=== PATIENT | male | born 1955 | race Caucasian/White ===

== ENCOUNTER 2022-11-08 10:33 | Emergency (ER) | payer MEDICARE, MEDICAID, SELFPAY ==
[2022-11-08 10:37] VITALS: BP 116/71; PULSE 70; RESP 119; TEMP 36.6; O2SAT 98; BMI 20.2
--- NOTE | 2022-11-08 11:48 | ED_ITS ---
HPI - General Adult General Chief complaint: Wound/Laceration Stated complaint: Laceration L Ear S/P Injury 11/07/22 Time Seen by Provider: 11/08/22 11:15 Source: other (facility staff) Mode of arrival: wheelchair Limitations: physical limitation History of Present Illness HPI narrative: Patient is a 67-year-old nonverbal male presenting to the emergency department with staff from [facility] who reports that patient sustained a laceration to his left tragus on Monday night while staff was putting patient into bed. Patient had head too close to siderail and when siderail was raised this caused a laceration. Staff denies ongoing bleeding. Staff states patient is not UTD on tetanus. Patient does not appear uncomfortable. MD complaint: Left ear laceration Onset (ago): day(s) Location: head Radiation: non-radiation Relieving factors: none Exacerbating factors: none Associated symptoms: denies other symptoms Treatments prior to arrival: none Related Data Allergies Allergy/AdvReac Type Severity Reaction Status Date / Time No Known Allergies Allergy Verified 11/08/22 10:36 [No Known Allergies*] Review of Systems Review of Systems: As per HPI. Yes all other systems are reviewed and are negative Constitutional: Constitutional: Reports as per HPI [facility] Social History Social History Advance Directives: No Advance Directives Information Provided: Yes Physical Exam ED Vital Signs: Vital Signs - 24 hr 11/08/22 10:37 Temperature 98 F Pulse Rate 70 Respiratory Rate 119 H Blood Pressure 116/71 Pulse Oximetry 98 BMI result Body Mass Index 20.2 Vital signs have been reviewed and appear to be correct. Blood pressure normal. Heart rate tachycardic. Respiratory rate normal. Temperature normal. Oxygen saturation normal. Const General: cooperative, healthy appearing and no acute distress Nutritional Appearance: thin Orientation/consciousness: Other orientation findings (nonverbal at baseline) Limitations: physical limitations HENMT Head: Yes normocephalic and Yes atraumatic Ears: external ears normal, TM's normal bilaterally, EAC's normal and mastoids normal Outer ear/TM images: 1. superficial laceration General nose exam: Normal external nose present Face and sinus: Yes face symmetric Mouth: oropharynx normal and moist mucous membranes Throat: Yes uvula midline Eyes Pupils: Equal, round and reactive pupils present Neck Neck: Yes normal visual inspection and Yes supple Resp Effort & Inspection: normal respiratory effort and able to speak in complete sentences Auscultation: clear to auscultation bilaterally Cardio Rate: regular rate Rhythm: regular rhythm Heart sounds: S1 normal heart sound present and S2 normal heart sound present GI Palpation (GI): Soft to palpation and nontender Auscultation: normoactive bowel sounds General: Yes no CVA tenderness Back/Spine/Pelvis Back: no CVA tenderness Skin General skin exam: elasticity normal and turgor normal Neuro Cranial nerves: Yes Equal, round and reactive pupils present Cognition (Neuro): abnormal cognition Extrem General: Yes no pedal edema and Yes no calf tenderness Psych Mental Status: mental status grossly normal Affect: normal affect Thought process: Normal thought process present Medical Decision Making Medical Decision Making MDM Narrative: Patient is a 67-year-old nonverbal male presenting to the emergency department with staff from [facility] who reports that patient sustained a laceration to his left tragus on Monday night while staff was putting patient into bed. On exam patient is awake, A+Ox3, VS WNL, afebrile, normal neurological exam without focal deficits, 1cm superficial laceration noted to tragus of left ear, no active bleeding. Given reported symptoms and physical exam findings, initial differential includes laceration, abrasion, cellulitis. Area cleansed thoroughly and wound repaired with skin glue. Discussed with [facility] staff that glue will fall off on its own in several days, and to redirect patient if he picks at the glue. Instructed staff to follow-up with patient's primary care provider. Return precautions discussed at bedside. Staff verbalized understanding of and agreement with plan. Differential Diagnosis Differential Diagnoses: The differential diagnosis associated with the presentation includes As per MDM. Independent Historian Clinical information obtained from an independent historian. History obtained from or confirmed by: Other ([facility] staff) External Record Review External record reviewed: Inpatient record, Office record and Outpatient record Discharge Plan Discharge Clinical Impression: Laceration of ear, external, left Patient Disposition: Home, Self-Care Instructions: Laceration (DC), Skin Adhesive Care (ED) Additional Instructions: You have been evaluated in the emergency department today for a laceration to your ear. Your laceration was repaired in the emergency department with skin glue. Please keep the area surrounding the laceration clean and dry. Please assess the wound daily. Keep the area out of direct sunlight for the next 6 months to help prevent scarring. If you develop fever, redness, swelling at the site of your laceration, or thick yellow drainage please come back to the ER for a wound check.
[2022-11-08 11:56] VITALS: BP 109/67; PULSE 67; RESP 16; O2SAT 100
[2022-11-08] MEDS: Diphth,Pertus(ACell),Tet Adult 0.5 ML SYRINGE IM (11:57)
== END 2022-11-08 12:06 | disposition home or self-care (01) ==
PROVIDERS: Emergency Provider Emergency Medicine; PCP Internal Medicine
DX: S01.312A Laceration without foreign body of left ear, initial encounter (principal); W22.8XXA Striking against or struck by other objects, initial encounter; Y93.89 Activity, other specified; Y92.042 Bedroom in boarding-house as the place of occurrence of the external cause; Y99.9 Unspecified external cause status
CPT/HCPCS: 12011; 90471; 90715; 99283; 99284

== ENCOUNTER 2023-01-24 11:16 | Emergency (ER) | payer MEDICARE, MEDICAID, SELFPAY ==
[2023-01-24 11:50] VITALS: BP 124/77; PULSE 56; RESP 18; TEMP 36.4; O2SAT 99; BMI 18.7
--- NOTE | 2023-01-24 11:50 | ED.GENADULT ---
HPI - General Adult General Chief complaint: Urogenital-Male Stated complaint: UTI? Acting off Source: patient and other (senior care staff) Mode of arrival: ambulatory Limitations: physical limitation (patient has cognitive delay) History of Present Illness HPI narrative: Patient is a 67 year old assigned male at with a history of cognitive delay presenting to the emergency department today acting strangely per senior care staff. Patient's senior care staff states that the patient has been acting strangely going to the bathroom more often and they are concerned that he has a UTI. Onset (ago): day(s) Relieving factors: none Exacerbating factors: none Associated symptoms: denies other symptoms Treatments prior to arrival: none Related Data Home Medications Medication Instructions Recorded Confirmed ciclopirox 0.77 % topical cream appl topical 01/25/23 clonazepam 0.5 mg disintegrating mg PO 01/25/23 tablet clorazepate dipotassium 3.75 mg mg PO 01/25/23 tablet divalproex 125 mg capsule,delayed mg PO 01/25/23 release sprinkle finasteride 5 mg tablet 5 mg PO DAILY 01/25/23 lacosamide 200 mg tablet mg PO 01/25/23 lacosamide 50 mg tablet mg PO 01/25/23 lorazepam 0.5 mg tablet 0.5 mg PO DAILY PRN 01/25/23 lorazepam 1 mg tablet mg PO 01/25/23 metoprolol succinate 25 mg mg PO 01/25/23 tablet,extended release 24 hr nystatin 100,000 unit/gram topical topical 01/25/23 powder phenobarbital 60 mg tablet mg PO 01/25/23 tamsulosin 0.4 mg capsule 0.8 mg PO DAILY 01/25/23 Previous Rx's Medication Instructions Recorded sulfamethoxazole 800 1 tab PO BID 10 days #20 tabs 01/25/23 mg-trimethoprim 160 mg tablet (Bactrim DS) Allergies Allergy/AdvReac Type Severity Reaction Status Date / Time No Known Allergies Allergy Verified 01/25/23 13:41 [No Known Allergies*] Review of Systems Review of Systems: Yes Other (patient has cognitive delay, senior care staff answered ROS) Constitutional: Constitutional: Denies fever(s) Eyes: Eyes: Denies eye discharge ENT: Denies change in voice Cardiovascular: Cardiovascular: Denies dyspnea Respiratory: Respiratory: Denies cough and Denies dyspnea Genitourinary: Genitourinary: Reports urinary frequency PMFSH Past Medical History Attestation statement: The following information was validated with the patient. (all information validated with the senior care staff.) Source: old records reviewed, nursing notes reviewed and other (senior care staff provided all history.) Social History Social History Patient Tobacco Use Status: Never used Tobacco Physical Exam ED Vital Signs: BMI result Body Mass Index 18.7 Const General: cooperative, no acute distress, alert and awake Nutritional Appearance: well nourished Limitations: no limitations HENMT Head: Yes normal to inspection and Yes atraumatic Ears: hearing grossly normal bilaterally and external ears normal General nose exam: Normal external nose present, no nasal discharge noted and no epistaxis Face and sinus: Yes normal facial exam, No abrasion and No laceration Mouth: Normal oral and palatal mucosa present, no drooling and no muffled voice Eyes General: appearance normal, both eyes and all related structures Periorbital: periorbital findings normal Eyelids: Yes eyelids normal Conjunctivae: conjunctivae normal Pupils: Equal, round and reactive pupils present EOM: EOMs intact bilaterally Neck Neck: Yes normal visual inspection, Yes full ROM and Yes no lymphadenopathy Chest Chest palpation & inspection: normal inspection of the chest Resp Effort & Inspection: normal respiratory effort and able to speak in complete sentences GI Inspection: Yes normal to inspection Neuro General: moves all extremities Cranial nerves: Yes Equal, round and reactive pupils present Extrem General: Yes normal to inspection, Yes full ROM and Yes capillary refill normal Psych Appearance: grossly normal Mental Status: mental status grossly normal Affect: normal affect Attitude: cooperative Thought process: Normal thought process present Thought content: Normal thought content present Insight: Good insight present (Psych) Course Course Course Narrative: RME performed by Enid Polanco PA-C. Patient is a 67 year old assigned male at presenting to the emergency department with a possible UTI / acting strangely per senior care staff. Labs and swabs ordered. Patient placed back in the waiting room pending room availability and results. Medical Decision Making Medical Decision Making MDM Narrative: Patient is a 67 year old assigned male at with a history of cognitive delay presenting to the emergency department today acting strangely per senior care staff. Patient's limited physical exam performed in triage was unremarkable. Patient's blood work was unremarkable. Patient's urine is pending. Patient and senior care staff left the department before myself or any of the other emergency department clinicians could review or explain physical exam findings, test results, need or lack there of for further testing, treatment options or a treatment plan. Differential Diagnosis Differential Diagnoses: The differential diagnosis associated with the presentation includes UTI Admission/Observation Consideration of admission/observation: Escalation of care including admission/observation considered Patient would have been admitted to the hospital had his work up had any findings where hospital admission was appropriate, his clinical presentation warranted hospital admission, and if he hadn't left the department with senior care staff. Lab Data MDM Lab Attestation statement: I reviewed the patient's lab results. My interpretation of these studies and their corresponding values is that they are grossly normal. 01/24/23 12:40 01/24/23 12:40 Labs: Lab Results 01/24/23 Range/Units 12:40 WBC 6.5 (4.8-10.8) X10*3/uL RBC 4.74 (4.60-5.80) X10*6/uL Hgb 15.4 (14.0-18.0) g/dl Hct 46.1 (42.0-52.0) % MCV 97.3 (80.0-98.0) fL MCH 32.5 (27.0-33.0) pg MCHC 33.4 (31.0-36.0) g/dl RDW 13.3 (11.0-16.0) % Plt Count 313 (160-400) X10*3/uL MPV 8.9 L (9.4-12.4) fL Immature Gran % (Auto) 0.5 H (0.0-0.4) % Neut % (Auto) 49.5 (45-73) % Lymph % (Auto) 38.3 (20-40) % [place] % (Auto) 8.6 (2-11) % Eos % (Auto) 2.3 (0-4) % Baso % (Auto) 0.8 (0-2) % Lymph # (Auto) 2.5 (1.2-4.9) X10*3/uL [place] # (Auto) 0.6 (0.1-1.2) X10*3/uL Eos # (Auto) 0.2 (0.0-0.4) X10*3/uL Baso # (Auto) 0.1 (0.0-0.2) X10*3/uL Abs Immat Gran (auto) 0.03 (0.00-0.03) X10*3/uL Absolute Neuts (auto) 3.2 (2.0-8.3) x10*3/uL Absolute Nucleated RBC 0.000 (0.0-0.012) X10*3/uL Nucleated RBC % (auto) 0.0 (0.0-0.2) /100WBC Sodium 140 (135-145) mmol/L Potassium 4.6 (3.3-5.1) mmol/L Chloride 105 (96-108) mmol/L Carbon Dioxide 28 (22-29) mmol/L Anion Gap 12 (12-20) BUN 13 (9-16) mg/dL Creatinine 0.74 (0.5-1.4) mg/dL Estim Creat Clear Calc 81.8 Estimated GFR > 60 Random Glucose 94 (60-115) mg/dL Calcium 9.6 (8.4-10.2) mg/dL Magnesium 1.9 (1.6-2.6) mg/dL Total Bilirubin 0.3 (0.0-1.0) mg/dL AST 14 (5-37) U/L ALT 28 (0-40) U/L Alkaline Phosphatase 143 H (39-117) U/L Total Protein 7.4 (6.5-8.0) g/dL Albumin 3.8 (3.5-5.0) g/dL Influenza Type A (PCR) NEGATIVE (Negative) Influenza Type B (PCR) NEGATIVE (Negative) RSV RNA Qual (PCR) NEGATIVE (Negative) SARS-CoV-2 RNA (RT-PCR) NEGATIVE (Negative) Independent Historian Clinical information obtained from an independent historian. History obtained from or confirmed by: Other (senior care staff provided all history.) Discharge Plan Discharge Clinical Impression: Unusual change in behavior Patient Disposition: Left W/O Completing Treatment Prescriptions: No Action tamsulosin 0.4 mg capsule 0.8 mg PO DAILY finasteride 5 mg tablet 5 mg PO DAILY divalproex 125 mg capsule, delayed rel sprinkle PO phenobarbital 60 mg tablet PO metoprolol succinate 25 mg tablet extended release 24 hr PO lacosamide 200 mg tablet PO lacosamide 50 mg tablet PO lorazepam 1 mg tablet PO lorazepam 0.5 mg tablet 0.5 mg PO DAILY PRN clonazepam 0.5 mg tablet,disintegrating PO ciclopirox 0.77 % cream topical nystatin 100,000 unit/gram powder topical clorazepate dipotassium 3.75 mg tablet PO sulfamethoxazole-trimethoprim [Bactrim DS] 800-160 mg tablet 1 tab PO BID 10 Days Qty: 20 0RF Discharge Date/Time: 01/24/23 19:22
[2023-01-24 12:48] LABS: MANUAL DIFF FLAG NO
[2023-01-24 12:49] LABS: Basophils Absolute Auto 0.1 X10*3/uL (0.0-0.2); Basophils Percent Auto 0.8 % (0-2); Eosinophils Absolute Auto 0.2 X10*3/uL (0.0-0.4); Eosinophils Percent Auto 2.3 % (0-4); Hematocrit 46.1 % (42.0-52.0); Hemoglobin 15.4 g/dl (14.0-18.0); Imm Gran Abs Auto 0.03 X10*3/uL (0.00-0.03); Imm Gran Pct Auto 0.5 % (0.0-0.4); Lymphocytes Absolute Auto 2.5 X10*3/uL (1.2-4.9); Lymphocytes Percent Auto 38.3 % (20-40); Mean Corpuscular HGB Conc 33.4 g/dl (31.0-36.0); Mean Corpuscular Hemoglobin 32.5 pg (27.0-33.0); Mean Corpuscular Volume 97.3 fL (80.0-98.0); Mean Platelet Volume 8.9 fL (9.4-12.4); Monocytes Absolute Auto 0.6 X10*3/uL (0.1-1.2); Monocytes Percent Auto 8.6 % (2-11); Neutrophils Absolute Auto 3.2 x10*3/uL (2.0-8.3); Neutrophils Percent Auto 49.5 % (45-73); Platelet Count 313 X10*3/uL (160-400); Red Blood Count 4.74 X10*6/uL (4.60-5.80); Red Cell Distribution Width 13.3 % (11.0-16.0); White Blood Count 6.5 X10*3/uL (4.8-10.8)
[2023-01-24 13:08] LABS: Alanine Aminotransferase 28 U/L (0-40); Albumin Level 3.8 g/dL (3.5-5.0); Alkaline Phosphatase 143 U/L (39-117); Anion Gap 12 (12-20); Aspartate Amino Transferase 14 U/L (5-37); Bilirubin Total 0.3 mg/dL (0.0-1.0); Blood Urea Nitrogen 13 mg/dL (9-16); Calcium 9.6 mg/dL (8.4-10.2); Carbon Dioxide 28 mmol/L (22-29); Chloride 105 mmol/L (96-108); Creatinine Clr Calc Pharmacy 81.8; Estimated Glomerular Filt Rate > 60; Glucose Random 94 mg/dL (60-115); Magnesium 1.9 mg/dL (1.6-2.6); Potassium 4.6 mmol/L (3.3-5.1); Sodium 140 mmol/L (135-145); Total Protein 7.4 g/dL (6.5-8.0)
[2023-01-24 13:25] LABS: Influenza A PCR NEGATIVE (Negative); Influenza B PCR NEGATIVE (Negative); Resp Syncy Virus RNA Qual PCR NEGATIVE (Negative); SARS COV2 PCR INHOUSE NEGATIVE (Negative)
== END 2023-01-24 19:22 | disposition left against medical advice (07) ==
PROVIDERS: Physician Assistant Medical; Emergency Provider Emergency Medicine; PCP Internal Medicine
DX: Z03.89 Encounter for observation for other suspected diseases and conditions ruled out (principal); R46.89 Other symptoms and signs involving appearance and behavior; Z20.822 Contact with and (suspected) exposure to COVID-19; Z20.828 Contact with and (suspected) exposure to other viral communicable diseases; Z79.899 Other long term (current) drug therapy
CPT/HCPCS: 0241U; 80053; 83735; 85025; 99281; 99283

== ENCOUNTER 2023-01-25 11:55 | Outpatient (AMB) | payer MEDICARE, MEDICAID, SELFPAY ==
--- NOTE | 2023-01-25 12:50 | MHC.OFFWIV ---
Intake Vital Signs 01/25/23 12:56 Height 5 ft 10 in Weight 130 lb BMI 18.7 BP 124/70 Blood Pressure Location Lt brachial Position Sitting Pulse 67 Pulse Source Pulse Oximeter Temp 97.3 F Temp Source Temporal Artery Scan Pulse Oximetry (%) 97 Oxygen Delivery Method Room Air Intake Visit Reasons: EST/uti symptoms(lobby) Intake Note: Pt is here c/o frequent urination. Pt staff member from [facility] states he has frequent urination and a lot of confusion for the past week. Patient Tobacco Use Status: Never used Tobacco Allergies No Known Allergies [No Known Allergies*] Allergy (Verified 01/25/23 13:41) Medication List - Last Reconciled 01/25/23 by Mehdi Cruz MD ciclopirox 0.77% appl topical clonazepam mg PO clorazepate dipotassium mg PO divalproex mg PO finasteride 5 mg PO DAILY lacosamide mg PO lacosamide mg PO lorazepam mg PO lorazepam 0.5 mg PO DAILY PRN metoprolol succinate ER mg PO nystatin topical phenobarbital mg PO tamsulosin 0.8 mg PO DAILY HPI EST/uti symptoms(lobby) HPI Details 67-year-old male presents to the office for a sick visit. Patient is coming from a long term and is accompanied by an attendant. Due to his baseline medical health, patient cannot give any history. He does not communicate. The attendant reports that patient is increasingly confused. He gets up frequently at night and jumps over the bed rail. He has been going to the bathroom frequently. No fever or chills. PFSH Social History Patient Tobacco Use Status: Never used Tobacco Physical Exam Vital Signs: Last Vital Signs Temp 97.3 F 01/25/23 12:56 Pulse 67 01/25/23 12:56 BP 124/70 01/25/23 12:56 Pulse Ox 97 01/25/23 12:56 Oxygen Delivery Method Room Air 01/25/23 12:56 BMI result Body Mass Index 18.7 HEENT Head: Yes normal to inspection Eyes General: appearance normal, both eyes and all related structures Chest Chest palpation & inspection: normal inspection of the chest Resp Effort & Inspection: normal respiratory effort Assessment & Plan Assessment & Plan (1) Confusion: Code(s): R41.0 - Disorientation, unspecified Plan Symptoms could be due to a urinary tract infection. Patient has had similar issues in the past and the symptoms came back to baseline on antibiotics. Today he is unable to urinate. Empiric treatment with antibiotics started. Coding Level of Care Code Est Pt Level 3 (22895) Diagnoses Confusion R41.0
[2023-01-25 12:56] VITALS: BP 124/70; PULSE 67; TEMP 36.3; O2SAT 97; BMI 18.7
== END 2023-01-25 13:51 | disposition home or self-care (01) ==
PROVIDERS: PCP Internal Medicine; Visit Provider Internal Medicine
DX: R41.0 Disorientation, unspecified (principal)
CPT/HCPCS: 99213

== ENCOUNTER 2023-03-19 20:14 | Emergency (ER) | payer MEDICARE, MEDICAID, SELFPAY ==
--- NOTE | ~2023-03-19 | XR_ITS ---
EXAMINATION: XR WRIST, LEFT CLINICAL INFORMATION: Unknown trauma. COMPARISON: None available. TECHNIQUE: Four views of the left wrist. FINDINGS: Bones are normal anatomic alignment with no acute fracture or dislocation seen. Degenerative changes seen in the radiocarpal joint and first carpometacarpal joint space. No bony destructive lesions or periosteal reaction. Mild soft tissue swelling about the wrist XR/XR wrist LT 2V IMPRESSION: Degenerative changes but no acute fracture or dislocation.
[2023-03-19 21:44] VITALS: BP 115/64; BP 134/95; PULSE 85; PULSE 88; RESP 18; TEMP 37.1; O2SAT 95; BMI 20.4
[2023-03-19 22:11] LABS: MANUAL DIFF FLAG NO
[2023-03-19 22:13] LABS: Basophils Absolute Auto 0.1 X10*3/uL (0.0-0.2); Basophils Percent Auto 0.4 % (0-2); Eosinophils Percent Auto 0.2 % (0-4); Hematocrit 39.7 % (42.0-52.0); Hemoglobin 13.5 g/dl (14.0-18.0); Imm Gran Abs Auto 0.03 X10*3/uL (0.00-0.03); Imm Gran Pct Auto 0.2 % (0.0-0.4); Lymphocytes Absolute Auto 2.7 X10*3/uL (1.2-4.9); Lymphocytes Percent Auto 20.3 % (20-40); Mean Corpuscular Hemoglobin 32.3 pg (27.0-33.0); Mean Platelet Volume 8.7 fL (9.4-12.4); Monocytes Percent Auto 7.5 % (2-11); Neutrophils Absolute Auto 9.6 x10*3/uL (2.0-8.3); Neutrophils Percent Auto 71.4 % (45-73); Platelet Count 300 X10*3/uL (160-400); Red Blood Count 4.18 X10*6/uL (4.60-5.80); Red Cell Distribution Width 13.9 % (11.0-16.0); White Blood Count 13.5 X10*3/uL (4.8-10.8)
[2023-03-19 22:31] LABS: Alanine Aminotransferase 53 U/L (0-40); Albumin Level 3.4 g/dL (3.5-5.0); Alkaline Phosphatase 131 U/L (39-117); Anion Gap 13 (12-20); Aspartate Amino Transferase 39 U/L (5-37); Bilirubin Total 0.4 mg/dL (0.0-1.0); Blood Urea Nitrogen 25 mg/dL (9-16); Calcium 9.2 mg/dL (8.4-10.2); Carbon Dioxide 23 mmol/L (22-29); Chloride 110 mmol/L (96-108); Creatinine Clr Calc Pharmacy 84.7; Estimated Glomerular Filt Rate > 60; Glucose Random 97 mg/dL (60-115); Potassium 4.3 mmol/L (3.3-5.1); Sodium 142 mmol/L (135-145); Total Protein 7.2 g/dL (6.5-8.0); Uric Acid 7.2 mg/dL (3.4-7.0)
--- NOTE | 2023-03-19 23:32 | ED_ITS ---
HPI - Extremity Problem General Chief complaint: Extremity Injury, Upper Stated complaint: LEFT HAND SWELLING Time Seen by Provider: 03/19/23 23:32 Related Data Home Medications Medication Instructions Recorded Confirmed ciclopirox 0.77 % topical cream appl topical 01/25/23 clonazepam 0.5 mg disintegrating mg PO 01/25/23 tablet clorazepate dipotassium 3.75 mg mg PO 01/25/23 tablet divalproex 125 mg capsule,delayed mg PO 01/25/23 release sprinkle finasteride 5 mg tablet 5 mg PO DAILY 01/25/23 lacosamide 200 mg tablet mg PO 01/25/23 lacosamide 50 mg tablet mg PO 01/25/23 lorazepam 0.5 mg tablet 0.5 mg PO DAILY PRN 01/25/23 lorazepam 1 mg tablet mg PO 01/25/23 metoprolol succinate 25 mg mg PO 01/25/23 tablet,extended release 24 hr nystatin 100,000 unit/gram topical topical 01/25/23 powder phenobarbital 60 mg tablet mg PO 01/25/23 tamsulosin 0.4 mg capsule 0.8 mg PO DAILY 01/25/23 Previous Rx's Medication Instructions Recorded sulfamethoxazole 800 1 tab PO BID 10 days #20 tabs 01/25/23 mg-trimethoprim 160 mg tablet (Bactrim DS) colchicine 0.6 mg tablet (Colcrys) 0.6 mg PO ONCE #6 tabs 03/19/23 ibuprofen 400 mg tablet 400 mg PO TID fever or pain 4 days 03/19/23 #12 tabs Allergies Allergy/AdvReac Type Severity Reaction Status Date / Time No Known Allergies Allergy Verified 01/25/23 13:41 [No Known Allergies*] [facility] Social History Social History Patient Tobacco Use Status: Never used Tobacco Advance Directives: No Advance Directives Information Provided: No Physical Exam 2 Vital Signs: Vital Signs: Last Vital Signs Temp 98.0 F 03/20/23 00:00 Pulse 106 H 03/20/23 00:00 Resp 17 03/20/23 00:00 BP 118/58 L 03/20/23 00:00 Pulse Ox 94 03/20/23 00:00 O2 Del Method Room Air 03/20/23 00:00 BMI result Body Mass Index 20.4 Medical Decision Making Lab Data 03/19/23 22:08 03/19/23 22:08 Labs: Lab Results 03/19/23 Range/Units 22:08 WBC 13.5 H (4.8-10.8) X10*3/uL RBC 4.18 L (4.60-5.80) X10*6/uL Hgb 13.5 L (14.0-18.0) g/dl Hct 39.7 L (42.0-52.0) % MCV 95.0 (80.0-98.0) fL MCH 32.3 (27.0-33.0) pg MCHC 34.0 (31.0-36.0) g/dl RDW 13.9 (11.0-16.0) % Plt Count 300 (160-400) X10*3/uL MPV 8.7 L (9.4-12.4) fL Immature Gran % (Auto) 0.2 (0.0-0.4) % Neut % (Auto) 71.4 (45-73) % Lymph % (Auto) 20.3 (20-40) % [place] % (Auto) 7.5 (2-11) % Eos % (Auto) 0.2 (0-4) % Baso % (Auto) 0.4 (0-2) % Lymph # (Auto) 2.7 (1.2-4.9) X10*3/uL [place] # (Auto) 1.0 (0.1-1.2) X10*3/uL Eos # (Auto) 0.0 (0.0-0.4) X10*3/uL Baso # (Auto) 0.1 (0.0-0.2) X10*3/uL Abs Immat Gran (auto) 0.03 (0.00-0.03) X10*3/uL Absolute Neuts (auto) 9.6 H (2.0-8.3) x10*3/uL Absolute Nucleated RBC 0.000 (0.0-0.012) X10*3/uL Nucleated RBC % (auto) 0.0 (0.0-0.2) /100WBC Sodium 142 (135-145) mmol/L Potassium 4.3 (3.3-5.1) mmol/L Chloride 110 H (96-108) mmol/L Carbon Dioxide 23 (22-29) mmol/L Anion Gap 13 (12-20) BUN 25 H (9-16) mg/dL Creatinine 0.78 (0.5-1.4) mg/dL Estim Creat Clear Calc 84.7 Estimated GFR > 60 Random Glucose 97 (60-115) mg/dL Uric Acid 7.2 H (3.4-7.0) mg/dL Calcium 9.2 (8.4-10.2) mg/dL Total Bilirubin 0.4 (0.0-1.0) mg/dL AST 39 H (5-37) U/L ALT 53 H (0-40) U/L Alkaline Phosphatase 131 H (39-117) U/L Total Protein 7.2 (6.5-8.0) g/dL Albumin 3.4 L (3.5-5.0) g/dL Radiology Impression Discussion of test interpretation with radiology: I have reviewed the radiologist's reading. Radiologist Impression: XR wrist LT 2V IMPRESSION: Degenerative changes but no acute fracture or dislocation. Dictated By: Kei Felipe MD Discharge Plan Discharge Clinical Impression: Gout of left wrist Qualifiers: Encounter type: initial encounter Chronicity: acute Patient Disposition: Home, Self-Care Instructions: Gout (ED) Additional Instructions: The x-ray of your left wrist did not reveal any broken bones but you do have arthritis of your wrist. Your blood work [place] [address] and an elevated uric acid of 7.2. These findings are consistent with gout of your wrist. Take Colcrys (colchicine) 0.6 mg pills, 2 pills (1.2 mg) once and 1 hour later take 1 pill (0.6 mg). Repeat this dose in 3 days. This is a gout specific anti-inflammatory pain medication. Take ibuprofen 400 mg pills, 1 pill 3 times a day for 4 days. This is an anti- inflammatory pain medication You also had a slight elevation in your liver tests. AST was 39 (normal 5-37) ALT was 53 (normal 0-40) Alkaline phosphatase 131 (normal 39-117) These elevations are nonspecific and your doctor should consider repeating these tests in 4 weeks when you are feeling better to make sure they are improving. Follow-up with your doctor in 2 days. Please return to the emergency department if your symptoms get worse or if you develop any symptoms that are concerning to you. Prescriptions: New colchicine [Colcrys] 0.6 mg tablet 0.6 mg PO ONCE Qty: 6 0RF Rx Instructions: 1.2 mg orally, then 1 hour later take 0.6 mg orally, repeat in 3 days ibuprofen 400 mg tablet 400 mg PO TID 4 Days Qty: 12 0RF No Action tamsulosin 0.4 mg capsule 0.8 mg PO DAILY finasteride 5 mg tablet 5 mg PO DAILY divalproex 125 mg capsule, delayed rel sprinkle PO phenobarbital 60 mg tablet PO metoprolol succinate 25 mg tablet extended release 24 hr PO lacosamide 200 mg tablet PO lacosamide 50 mg tablet PO lorazepam 1 mg tablet PO lorazepam 0.5 mg tablet 0.5 mg PO DAILY PRN clonazepam 0.5 mg tablet,disintegrating PO ciclopirox 0.77 % cream topical nystatin 100,000 unit/gram powder topical clorazepate dipotassium 3.75 mg tablet PO sulfamethoxazole-trimethoprim [Bactrim DS] 800-160 mg tablet 1 tab PO BID 10 Days Qty: 20 0RF Stand Alone Forms: Work/School Release
[2023-03-20] VITALS: BP 118/58; PULSE 106; RESP 17; TEMP 36.7; O2SAT 94
== END 2023-03-20 01:05 | disposition home or self-care (01) ==
PROVIDERS: Emergency Provider Emergency Medicine Emergency Medical Services; PCP Internal Medicine
DX: M10.9 Gout, unspecified (principal)
CPT/HCPCS: 36415; 73100; 80053; 84550; 85025; 99283; 99284

== ENCOUNTER 2024-07-19 23:47 | Inpatient (IN) | payer MEDICARE, MEDICAID, SELFPAY ==
--- NOTE | 2024-07-19 23:52 | ECG_ITS ---
Test Reason : CHEST PX Blood Pressure : */* mmHG Vent. Rate : 83 BPM Atrial Rate : 83 BPM P-R Int : 270 ms QRS Dur : 140 ms QT Int : 374 ms P-R-T Axes : 76 -29 76 degrees QTcB Int : 439 ms Sinus rhythm with 1st degree A-V block Left bundle branch block Abnormal ECG When compared with ECG of 08-Feb-2019 00:52, No significant change was found Referred By: Generic ED Physician Electronically Signed By: Josh Mcdaniel
[2024-07-19 23:58] VITALS: BP 128/80; PULSE 113; O2SAT 94
[2024-07-19 23:59] VITALS: BP 130/71; PULSE 82; RESP 19; TEMP 36.6; O2SAT 96; BMI 22.9
[2024-07-20] VITALS (10 sets, daily range): BP systolic 108–137; BP diastolic 63–80; PULSE 56–84; RESP 16–22; TEMP 36.4–36.7; O2SAT 96–99; BMI 23.3
--- NOTE | 2024-07-20 00:17 | PC.NURSE ---
pt biba from skilled nursing per ems staff reports when pt woke up pt complaining of chest pain and diaphoretic. pt is nonverbal. when questioning pain pt points to left leg. upon palpation of leg pt grimacing and verbalizing OW . Called skilled nursing spoke with [facility], stated prior shift reported pt lost his balance but no fall. Yokasta also reported pt was sent due to unsteady gait when trying to use the bathroom, shaking and ill appearing. pt changed into gown and placed on the monitor, labs collected, ekg done.
--- OUTSIDE RECORDS SUMMARY | 2024-07-20 01:24 | XMS_ITS | Encounter Summary ---
Author Organization [facility] Address [address] [place] [address] Care Team Providers Care Engine Manager Name Role Phone Bimal Hampton MD Primary Care Provider [phone] Reason for Visit * Reason Onset Date Comments Faxed Order 05/31/2024 [facility] Medication T elephone Order - Melatonin Encounter Details Date Type Department Care Team ([facility] st Contact Info) Description 05/31/2024 Telephone Adult Medicine [address] [phone] Rashmi Del Rio RN Faxed Order ([facility] Medication Telephone Order - Melatonin) Social History Tobacco Use Types Packs/Day Years Used Date Smoking Tobacco: Never Smokeless Tobacco: Never Alcohol Use Standard Drinks/Week Comments No 0 (1 standard drink = 0.6 oz pur e alcohol) Housing Instability Answer Date Recorde d Are you worried that in the next 2 months you may not have stable housing? No 05/22/2024 Food Access & Nutrition Answer Date Rec orded Do you have access to a vari ety of food including fruits and vegetables? Yes 05/22/2024 Access to Healthcare Answer Date Record ed Within the last 3 months, weston wallace many times did you visit the emergency department for your medical care? 0 05/22/2024 Health Literacy Answer Date Recorded How often do you need to hav e someone help you when you read instructions, pamphlets, or other written material from your doctor or pharmacy? Always 05/22/2024 Caregiver: How often do you need to have someone help you when you read instructions, pamphlets, or other written material from your doctor or pharmacy? Not on file 05/22/2024 Financial Risk Answer Date Recorded How hard is it for you to pa y for the very basics like food, housing, medical care, and air conditioning / heating? Not very hard 05/22/2024 Transportation Answer Date Recorded Has the lack of transportati on kept you from meetings, work, or from getting things needed for daily living? No Has the lack of transportati on kept you from medical appointments or from getting medications? No 05/22/2024 Social Isolation Answer Date Recorded How often do you feel lonely or isolated from th ose around you? Never 05/22/2024 Food Risk Answer Date Recorded Within the past 12 months we worried whether our food would run out before we got money to buy more. Never true 05/22/2024 Within the past 12 months th e food we bought just didn't last and we didn't have money to get more. Never true 05/22/2024 Dependent Care Answer Date Recorded Do you need help finding or paying for care for your loved ones. For example, early childhood special educator or elderly care for an older adult? No 05/22/2024 Education Answer Date Recorded Do you think completing more education or training, like finishing a GED, going to college, or learning a trade, would be helpful for you? No 05/22/2024 Employment and Income Answer Date Recor ded During the last four weeks, have you been actively looking for work? No 05/22/2024 Living Situation Answer Date Recorded What is your living situation? 0 05/22/2024 Sex and Gender Information Value Date Recorded Sex Assigned at Not on file Legal Sex Male 5:48 AM EST Gender Identity Not on file Sexual Orientation Not on file documented as of this encounter Progress Notes * Estrellita Brown MA - 07/19/2024 11:28 AM EDT Order signed, scanned and right faxed. * Rashmi Del Rio RN - 05/31/2024 8:43 AM EDT Received [facility] Medication Telephone Order - Melatonin. Please sign and fax to [phone]. documented in this encounter Plan of Treatment Upcoming Encounters Date Type Department Care Team (Late st Contact Info) Description 02/11/2025 2:10 PM EST Office Visit [facility] Cardiology [facility] [address] [place] [address] Dr [address] [place] [address] Shonda Bynum NP [address] [place] [address] Dr [address] [place] [address] documented as of this encounter Visit Diagnoses Not on filedocumented in this encounter Additional Health Concerns Assessment Noted Time PHQ-9 Depression Total Score: 0 05/23/19 7:47 AM EST documented as of this encounter Care Teams Engine Manager Relationship Specialty Start Date End Date Bimal Hampton MD [address] [place] [id number] PCP - General Internal Medicine 12/11/09 documented as of this encounter
--- OUTSIDE RECORDS SUMMARY | 2024-07-20 01:24 | XMS_ITS | Data Portability ---
Author Organization [place] - [facility], All[facility] Address [address] [facility] [address] [place] [address] Care Team Providers Care Conveyancer Name Role Phone NOELLE QUESADA Primary Care Provider Assessment Encounter Date Assessment Date Assessment LastModified by Organization Details LastModified Time 01/25/2024 01/25/2024 68 year old nonverbal male presents to the office from senior living for routine six month ear cleaning. Ears were meticulously cleaned bilaterally today with suction. Patient will follow up in six month for repeat ear cleaning. [email or web address] Not available 01/25/2024 12:10:40 Plan of Treatment Reminders Order Date Submit Date Provider Last Modified By Organization Details Last Modified Time Details Appointments None record ed. Lab None record ed. Referral None record ed. Procedures None record ed. Surgeries None record ed. Imaging None record ed. Medication Orders None record ed. Patient TargetsNo targets recorded. Patient InstructionsNo instructions recorded. Reason for Referral None Reported. Problems Name Problem SNOMED Code Status Onset Date Resolution Date Notes Provider Name and Address Organization Details Recorded Time Impacted cerumen of bilateral ears [id number] Active 2022 Impacted cerumen, bilateral ; Note: Date Diagnosed : 11/14/2022 3:48 PM (H61.23) Not Available [facility] 03:25[facility]14 Problem Notes None recorded. Procedures Surgical History Date Name Laterality Status Provider Name and Address Organization Details Recorded Time 4 Cerumen removal without microscope bilat completed KARLIE WILLIAM PA-C [address] [facility], [place], [phone], [facility] - [facility] 01/25/2024 12:10:05 Imaging Results None recorded. Procedure Notes None recorded. Medical Equipment None Reported. Allergies No known drug allergies Medications Name Sig Start Date Stop Date Status Note LastModified by Organization Details LastModified Time clorazepa te dipotassi um 3.75 mg tablet 01/24 completed Medicati on ID: [id number] rand Name: clorazep ate dipotass ium Send Method: E-Prescr ibed Sub s Allowed: subs OK Medic ationGen ericName : clorazep ate dipotass ium Not Available Not Available Not Available sulfameth oxazole 800 mg-trimet hoprim 160 mg tablet 01/24 completed Not Available Not Available Not Available phenobarb ital 60 mg tablet active Not Available Not Available No t Available lorazepam 0.5 mg tablet active Not Available Not Available Not Available tamsulosi n 0.4 mg capsule active Not Available Not Available Not Available nystatin 100,000 unit/gram topical cream 01/24 completed Medicati on ID: [id number] B rand Name: nystatin Send Method: E-Prescr ibed Sub s Allowed: subs OK Medic ationGen ericName : nystatin Not Available Not Available Not Available metronida zole 0.75 % topical cream active Not Available Not Available Not Available ibuprofen 400 mg tablet TAKE 1 TAB ORALLY 3 TIMES A DAY FOR FEVER OR PAIN FOR 4 DAYS 01/24 completed Not Available Not Available Not Available metoprolo l succinate ER 25 mg tablet,ex tended release 24 hr active Not Available Not Available Not Available nystatin 100,000 unit/gram topical powder active Not Available Not Available Not Available lorazepam 1 mg tablet 01/24 completed Not Available Not Available Not Available colchicin e 0.6 mg tablet TAKE 2 TABLETS ORALLY NOW THEN 1 HOUR LATER TAKE 1 TAB ORALLY. REPEAT IN 3 DAYS 01/24 completed Not Available Not Available Not Available atropine 1 % eye drops 01/24 completed Medicati on ID: [id number] B rand Name: atropine Send Method: E-Prescr ibed Sub s Allowed: subs OK Medic ationGen ericName : atropine Not Available Not Available Not Available divalproe x 125 mg capsule,d elayed release sprinkle active Not Available Not Available Not Available finasteri de 5 mg tablet active Not Available Not Available Not Available ciclopiro x 0.77 % topical cream active Not Available Not Available Not Available clonazepa m 0.5 mg disintegr ating tablet active Not Available Not Available Not Available lacosamid e 200 mg tablet active Not Available Not Available Not Available lacosamid e 50 mg tablet active Not Available Not Available Not Available Vitals Date Recorded Body height Body weight Provider Name and Address Organization Details Last Updated DateTime 01/25/2024 177.8 cm 28172.93 g Dahlia Chavarria [place] - [facility] 01/25/2024 10:49:58 Social History None recorded. Functional Status None recorded. Mental Status None recorded. Family History Nothing Reported. Medical History No medical history recorded. Past Encounters Encounter ID Performer Location Encounter Start Date Encounter Closed Date Diagnosis/Indication Diagnosis SNOMED-CT Code Diagnosis ICD10 Code Diagnosis Note [id number] KARLIE WILLIAM PA-C [facility] [address] [phone] 01/25/2024 10:37:42 01/25/2024 11:22:43 Impacted cerumen of bilateral ears [id number] H61.23 Health Concerns Section Related Observation LastModified by Organization Detai ls LastModified Time None Recorded Concern Status LastModified by Organization Details LastModified Time None Recorded Advance Directives Directive None Recorded Payers Encounter Date Sequence Insurance Name Policy Number Policy Patel Covered Member ID Patel Member ID Guarantor Name 01/25/2024 2 [place] Kevin Fry [id number] Kevin Fry 01/25/2024 1 [place] [facility] Kevin Fry [id number] Kevin Fry Notes Date Note Type Note Provider Name and Address Organization Details Recorded Time 01/25/2024 text/html 68 year old nonverbal male presents to the office from senior living for routine six month ear cleaning. No concerns. KARLIE WILLIAM PA-C [address] [place] [address], [phone], [facility] - [facility] 01/25/2024 12:11:22
--- NOTE | 2024-07-20 01:31 | ED.CHESTPAIN ---
HPI - Chest Pain General Chief Complaint: Chest Pain Stated Complaint: CP Time Seen by Provider: 07/20/24 01:29 Source: patient Mode of arrival: ambulatory Limitations: no limitations History of Present Illness ED Provider: HPI narrative: Patient with history of developmental delay nonverbal , seizure disorder apparently had a good day earlier today went to the bathroom came out around 18:00 holding his chest with cold sweats blood pressure was elevated that name 164/90 with heart rate of 132 after arrival patient has been in stable vitals without any distress no prior history of coronary artery disease in the past Related Data Home Medications ?Medication ?Instructions ?Recorded ?Confirmed ciclopirox 0.77 % topical cream appl topical 01/25/23 clonazepam 0.5 mg disintegrating mg PO 01/25/23 tablet clorazepate dipotassium 3.75 mg mg PO 01/25/23 tablet divalproex 125 mg capsule,delayed mg PO 01/25/23 release sprinkle finasteride 5 mg tablet 5 mg PO DAILY 01/25/23 lacosamide 200 mg tablet mg PO 01/25/23 lacosamide 50 mg tablet mg PO 01/25/23 lorazepam 0.5 mg tablet 0.5 mg PO DAILY PRN 01/25/23 lorazepam 1 mg tablet mg PO 01/25/23 metoprolol succinate 25 mg mg PO 01/25/23 tablet,extended release 24 hr nystatin 100,000 unit/gram topical topical 01/25/23 powder phenobarbital 60 mg tablet mg PO 01/25/23 tamsulosin 0.4 mg capsule 0.8 mg PO DAILY 01/25/23 Previous Rx's ?Medication ?Instructions ?Recorded sulfamethoxazole 800 1 tab PO BID 10 days #20 tabs 01/25/23 mg-trimethoprim 160 mg tablet (Bactrim DS) colchicine 0.6 mg tablet (Colcrys) 0.6 mg PO ONCE #6 tabs 03/19/23 ibuprofen 400 mg tablet 400 mg PO TID fever or pain 4 days 03/19/23 #12 tabs Allergies Allergy/AdvReac Type Severity Reaction Status Date / Time No Known Allergies Allergy Verified 07/20/24 00:03 [No Known Allergies*] Review of Systems Review of Systems: Yes Unobtainable due to mental condition (Nonverbal) [facility] Past Medical History Medical History (Updated 07/20/24 @ 06:58 by Babatunde Reyna MD) Rosacea Vitamin D deficiency Dysphagia Mitral regurgitation Seizure disorder Intellectual disability Anxiety Social History Social History Unable to assess alcohol history related to: Unable to respond Patient Tobacco Use Status: Never used Tobacco Use of substances other than those prescribed or required for medical reasons: Unable to respond Advance Directives: Yes Advance Directives Information Provided: Yes Advance Directives on File: No Physical Exam Vital Signs: Vital Signs: Last Vital Signs Temp 98.1 F 07/20/24 06:15 Pulse 75 07/20/24 06:15 Resp 16 07/20/24 06:15 BP 108/63 07/20/24 06:15 Pulse Ox 96 07/20/24 06:15 O2 Del Method Room Air 07/20/24 06:15 BMI result Body Mass Index 22.9 Appearance: Alert. Nonverbal. No acute distress. Eyes: No pallor or icterus ENT: Pharynx normal. Oral Mucosa moist Neck: Normal inspection. Neck supple. CVS: Normal heart rate and rhythm. Pulses normal. Respiratory: No respiratory distress. Equal air entry bilateral, no wheezing/rales/rhonchi Abdomen: Soft and nontender. Bowel sounds are present, no mass palpable, no CVA tenderness Skin: Skin warm and dry. Normal skin color. Normal skin turgor. Extremities: No lower extremity edema. No calf tenderness Neuro: At his baseline alert and awake nonverbal No motor deficit. No sensory deficit.No cerebellar signs , cranial nerves II-XII intact Medications Administered Generic Name Dose Route Start Last Admin Trade Name Freq PRN Reason Stop Dose Admin Heparin Sodium/Sodium Chloride 25,000 unit in 250 mls @ 0 mls/hr 07/20/24 04:15 07/20/24 05:12 Heparin Sodium,Porcine/1/2ns IVCONT 12 units/kg/hr .Q0M TONY 8.69 mls/hr Administration Protocol Per Protocol Discontinued Medications Generic Name Dose Route Start Last Admin Trade Name Freq PRN Reason Stop Dose Admin Aspirin 162 mg 07/20/24 02:17 07/20/24 02:24 Aspirin Enteric Coated 81 Mg Tablet. PO 07/20/24 02:18 162 mg ONCE ONE Administration Divalproex Sodium 500 mg 07/20/24 04:26 07/20/24 04:46 Divalproex Sodium 500 Mg Tablet.Dr PO 07/20/24 04:27 500 mg ONCE ONE Administration Heparin Sodium (Porcine) 5,000 unit 07/20/24 02:21 07/20/24 02:29 Heparin Sodium,Porcine 5,000 Unit/Ml Vial IVPUSH 07/20/24 02:22 5,000 unit ONCE ONE Administration Lacosamide 200 mg 07/20/24 04:33 07/20/24 04:46 Lacosamide 100 Mg Tablet PO 07/20/24 04:34 200 mg ONCE ONE Administration Lacosamide 50 mg 07/20/24 04:33 07/20/24 04:46 Lacosamide 100 Mg Tablet PO 07/20/24 04:34 50 mg ONCE ONE Administration Lorazepam 0.5 mg 07/20/24 04:26 07/20/24 04:46 Lorazepam 0.5 Mg Tablet PO 07/20/24 04:27 0.5 mg ONCE ONE Administration Phenobarbital 60 mg 07/20/24 04:26 07/20/24 04:46 Phenobarbital 30 Mg Tablet PO 07/20/24 04:27 60 mg ONCE ONE Administration Medical Decision Making Medical Decision Making [facility] Narrative: Patient with acute onset of chest pain with elevated troponin with no delta change no chest pain after arrival EKG without any significant ischemic changes will admit patient for further evaluation for ACS patient is started on heparin drip Differential Diagnosis Differential Diagnoses: The differential diagnosis associated with the presentation includes ACS/atypical chest pain/pneumonia/pleurisy Admission/Observation Consideration of admission/observation: Escalation of care including admission/observation considered Consult Healthcare Provider Management of the patient was discussed with: Hospitalist Lab Data [facility] Lab Attestation statement: I reviewed the patient's lab results. 07/20/24 05:27 07/20/24 01:40 Labs: Lab Results 07/20/24 07/20/24 Range/Units 01:40 03:30 WBC 7.0 (4.8-10.8) X10*3/uL RBC 4.15 L (4.60-5.80) X10*6/uL Hgb 13.5 L (14.0-18.0) g/dl Hct 40.4 L (42.0-52.0) % MCV 97.3 (80.0-98.0) fL MCH 32.5 (27.0-33.0) pg MCHC 33.4 (31.0-36.0) g/dl RDW 14.1 (11.0-16.0) % Plt Count 266 (160-400) X10*3/uL MPV 8.7 L (9.4-12.4) fL Immature Gran % (Auto) 0.4 (0.0-0.4) % Neut % (Auto) 66.3 (45-73) % Lymph % (Auto) 21.1 (20-40) % [place] % (Auto) 10.2 (2-11) % Eos % (Auto) 1.1 (0-4) % Baso % (Auto) 0.9 (0-2) % Lymph # (Auto) 1.5 (1.2-4.9) X10*3/uL Screven # (Auto) 0.7 (0.1-1.2) X10*3/uL Eos # (Auto) 0.1 (0.0-0.4) X10*3/uL Baso # (Auto) 0.1 (0.0-0.2) X10*3/uL Abs Immat Gran (auto) 0.03 (0.00-0.03) X10*3/uL Absolute Neuts (auto) 4.6 (2.0-8.3) x10*3/uL Absolute Nucleated RBC 0.000 (0.0-0.012) X10*3/uL Nucleated RBC % (auto) 0.0 (0.0-0.2) /100WBC PT 12.7 H (10.9-12.4) SEC INR 1.1 (0.9-1.1) APTT 32.3 (26.0-36.8) SEC Sodium 140 (135-145) mmol/L Potassium 4.7 (3.3-5.1) mmol/L Chloride 112 H (96-108) mmol/L Carbon Dioxide 23 (22-29) mmol/L Anion Gap 10 L (12-20) BUN 25 H (9-16) mg/dL Creatinine 0.71 (0.5-1.4) mg/dL Estim Creat Clear Calc 103.3 Estimated GFR > 60 Random Glucose 98 (60-115) mg/dL Calcium 8.4 D (8.4-10.2) mg/dL Total Bilirubin 0.2 (0.0-1.0) mg/dL AST 17 (5-37) U/L ALT 19 (0-40) U/L Alkaline Phosphatase 99 (39-117) U/L Troponin I High Sens 71.6 H 89.7 H (<3.5-35.0) ng/L Total Protein 6.3 L (6.5-8.0) g/dL Albumin 3.5 (3.5-5.0) g/dL Independent Interpretation I performed an independent interpretation of an: EKG and Plain X-Ray Interpretation: Sinus rhythm with first-degree heart block heart rate 83 beats per minute left bundle-branch block no acute STT wave changes no acute ischemia Radiology Impression Discussion of test interpretation with radiology: I have reviewed the radiologist's reading. Critical Care Time Critical Care Time Critical Care Time: Yes Total Critical Care Time: 40 Attestation: The patient was critically ill with a high probability of imminent or life threatening deterioration. I spent greater than ?45??minutes of discontinuous time evaluating the patient,delivering critical care at the bedside, discussing and evaluating pertinent data with consultants. Critical care time does not include time spent performing separately billable procedures or teaching. Total time spent performing critical care was 40???minutes. Discharge Plan Discharge Clinical Impression: NSTEMI (non-ST elevated myocardial infarction) Patient Disposition: Admitted As Inpatient
[2024-07-20 01:52] LABS: Basophils Absolute Auto 0.1 X10*3/uL (0.0-0.2); Basophils Percent Auto 0.9 % (0-2); Eosinophils Absolute Auto 0.1 X10*3/uL (0.0-0.4); Eosinophils Percent Auto 1.1 % (0-4); Hematocrit 40.4 % (42.0-52.0); Hemoglobin 13.5 g/dl (14.0-18.0); Imm Gran Abs Auto 0.03 X10*3/uL (0.00-0.03); Imm Gran Pct Auto 0.4 % (0.0-0.4); Lymphocytes Absolute Auto 1.5 X10*3/uL (1.2-4.9); Lymphocytes Percent Auto 21.1 % (20-40); MANUAL DIFF FLAG NO; Mean Corpuscular HGB Conc 33.4 g/dl (31.0-36.0); Mean Corpuscular Hemoglobin 32.5 pg (27.0-33.0); Mean Corpuscular Volume 97.3 fL (80.0-98.0); Mean Platelet Volume 8.7 fL (9.4-12.4); Monocytes Absolute Auto 0.7 X10*3/uL (0.1-1.2); Monocytes Percent Auto 10.2 % (2-11); Neutrophils Absolute Auto 4.6 x10*3/uL (2.0-8.3); Neutrophils Percent Auto 66.3 % (45-73); Platelet Count 266 X10*3/uL (160-400); Red Blood Count 4.15 X10*6/uL (4.60-5.80); Red Cell Distribution Width 14.1 % (11.0-16.0)
[2024-07-20 02:13] LABS: Alanine Aminotransferase 19 U/L (0-40); Albumin Level 3.5 g/dL (3.5-5.0); Anion Gap 10 (12-20); Aspartate Amino Transferase 17 U/L (5-37); Bilirubin Total 0.2 mg/dL (0.0-1.0); Blood Urea Nitrogen 25 mg/dL (9-16); Calcium 8.4 mg/dL (8.4-10.2); Carbon Dioxide 23 mmol/L (22-29); Chloride 112 mmol/L (96-108); Creatinine Clr Calc Pharmacy 103.3; Estimated Glomerular Filt Rate > 60; Glucose Random 98 mg/dL (60-115); Potassium 4.7 mmol/L (3.3-5.1); Sodium 140 mmol/L (135-145); Total Protein 6.3 g/dL (6.5-8.0)
[2024-07-20 02:15] LABS: INTERNATIONAL NORM RATIO 1.1 (0.9-1.1); Prothrombin Time 12.7 SEC (10.9-12.4); Troponin-I High Sensitivity 71.6 ng/L (<3.5-35.0)
[2024-07-20 02:17] LABS: Partial Thromboplastin Time 32.3 SEC (26.0-36.8)
[2024-07-20 02:19] LABS: Alkaline Phosphatase 99 U/L (39-117)
[2024-07-20] MEDS: Aspirin Enteric Coated 81 MG TABLET.DR 162 MG PO (02:24)
[2024-07-20] MEDS: Heparin Sodium,Porcine 5,000 UNIT/ML VIAL 5000 UNIT IVPUSH (02:29)
[2024-07-20 03:54] LABS: Troponin-I High Sensitivity 89.7 ng/L (<3.5-35.0)
--- NOTE | 2024-07-20 04:28 | P.HPHOSP_ITS ---
History of Present Illness Date of Service: 07/20/24 Chief Complaint: Chest pain This is a 68-year-old male with pertinent history of seizure disorder, moderate intellectual disability nonverbal at baseline, mood disorder, mitral regurgitation, moderate dysphagia, urinary incontinence who was sent to the emergency department for evaluation of chest pain. Unable to obtain history or review of systems home the patient as he is nonverbal. History obtained from chart review and ER provider. senior living staff reported that patient woke up from nap complaining of chest pain, holding his chest. He was diaphoretic when this happened and his heart rate was elevated. No known history of coronary artery disease in the past. Stable vital signs in the ER. Troponin found to be elevated. Patient was initiated on IV heparin and admitted to hospital medicine team. Review of Systems 2 Review of Systems: Yes Unobtainable due to mental status [facility] Medical History (Updated 07/20/24 @ 04:30 by Teresa Salamanca MD) Rosacea Vitamin D deficiency Dysphagia Mitral regurgitation Seizure disorder Intellectual disability Anxiety Pertinent family history: Unable to obtain Social History Unable to assess alcohol history related to: Unable to respond Patient Tobacco Use Status: Never used Tobacco Use of substances other than those prescribed or required for medical reasons: Unable to respond Advance Directives: Yes Advance Directives Information Provided: Yes Advance Directives on File: No Meds Allergies Allergy/AdvReac Type Severity Reaction Status Date / Time No Known Allergies Allergy Verified 07/20/24 00:03 [No Known Allergies*] Active Medications: Current Medications Divalproex Sodium (Divalproex Sodium 500 Mg Tablet.) 500 mg PO ONCE ONE Stop: 07/20/24 04:27 Heparin Sodium (Porcine) (Heparin Sodium,Porcine 5,000 Unit/Ml Vial) 2,900 unit 40 unit/kg (2900 unit) IVPUSH PROTOCOL BOLUS PRN; Protocol PRN Reason: 40 unit/kg - Heparin Protocol Heparin Sodium (Porcine) (Heparin Sodium,Porcine 5,000 Unit/Ml Vial) 5,800 unit 80 unit/kg (5800 unit) IVPUSH PROTOCOL BOLUS PRN; Protocol PRN Reason: 80 unit/kg - Heparin Protocol Heparin Sodium/Sodium Chloride (Heparin Sodium,Porcine/1/2ns) 25,000 unit in 250 mls @ 0 mls/hr IVCONT .Q0M TONY; Protocol Lorazepam (Lorazepam 0.5 Mg Tablet) 0.5 mg PO ONCE ONE Stop: 07/20/24 04:27 Phenobarbital (Phenobarbital 30 Mg Tablet) 60 mg PO ONCE ONE Stop: 07/20/24 04:27 Home Medications ?Medication ?Instructions ?Recorded ?Confirmed ?Last Taken ?Type ciclopirox 0.77 % topical cream appl topical 01/25/23 Unknown History clonazepam 0.5 mg disintegrating mg PO 01/25/23 Unknown History tablet clorazepate dipotassium 3.75 mg mg PO 01/25/23 Unknown History tablet divalproex 125 mg capsule,delayed mg PO 01/25/23 Unknown History release sprinkle finasteride 5 mg tablet 5 mg PO DAILY 01/25/23 Unknown History lacosamide 200 mg tablet mg PO 01/25/23 Unknown History lacosamide 50 mg tablet mg PO 01/25/23 Unknown History lorazepam 0.5 mg tablet 0.5 mg PO DAILY PRN 01/25/23 Unknown History lorazepam 1 mg tablet mg PO 01/25/23 Unknown History metoprolol succinate 25 mg mg PO 01/25/23 Unknown History tablet,extended release 24 hr nystatin 100,000 unit/gram topical topical 01/25/23 Unknown History powder phenobarbital 60 mg tablet mg PO 01/25/23 Unknown History tamsulosin 0.4 mg capsule 0.8 mg PO DAILY 01/25/23 Unknown History Physical Exam 2 Vital Signs and Narrative: Vital Signs: Last Vital Signs Temp 97.5 F 07/20/24 04:17 Pulse 68 07/20/24 04:17 Resp 17 07/20/24 04:17 BP 113/67 07/20/24 04:17 Pulse Ox 97 07/20/24 04:17 O2 Del Method Room Air 07/20/24 04:17 BMI result Body Mass Index 22.9 Middle-aged male lying in bed in no distress Neck supple, no JVD Regular rate and rhythm, S1-S2 heard Regular breath sounds bilaterally, no wheezing or crackles appreciated Abdomen soft nontender, no guarding, no rigidity Patient is awake, nonverbal, intermittently follows commands Psych: Normal mood No pedal edema Results Labs 07/20/24 01:40 07/20/24 01:40 Labs: Laboratory Results - last 24 hr 07/20/24 01:40 MCV 97.3 MCH 32.5 MCHC 33.4 RDW 14.1 Plt Count 266 MPV 8.7 L Immature Gran % (Auto) 0.4 Neut % (Auto) 66.3 Lymph % (Auto) 21.1 [place] % (Auto) 10.2 Eos % (Auto) 1.1 Baso % (Auto) 0.9 Lymph # (Auto) 1.5 [place] # (Auto) 0.7 Eos # (Auto) 0.1 Baso # (Auto) 0.1 Abs Immat Gran (auto) 0.03 Absolute Neuts (auto) 4.6 Absolute Nucleated RBC 0.000 Nucleated RBC % (auto) 0.0 PT 12.7 H INR 1.1 APTT 32.3 Anion Gap 10 L Estim Creat Clear Calc 103.3 Estimated GFR > 60 Random Glucose 98 Calcium 8.4 D Total Bilirubin 0.2 AST 17 ALT 19 Alkaline Phosphatase 99 Total Protein 6.3 L Albumin 3.5 Assessment and Plan (1) NSTEMI (non-ST elevated myocardial infarction): Status: Acute Plan This is a 68-year-old male with pertinent history of seizure disorder, moderate intellectual disability nonverbal at baseline, mood disorder, mitral regurgitation, moderate dysphagia, urinary incontinence who was sent to the emergency department for evaluation of chest pain. #. NSTEMI: Will admit patient with cardiac monitoring. Patient given aspirin and initiated on IV heparin in the ER. He is on beta-sharonda. Consulted Cardiology, appreciate assistance. Obtaining echo #. Seizure disorder/ Mood disorder: Continue Vimpat, Depakote, Ativan, phenobarbital #. Urinary incontinence: On Flomax and Proscar #. Dysphagia: Consulted speech Med rec pending DVT prophylaxis: IV heparin Full code. Unable to address code status on admission. Readdress in a.m. Admit as inpatient and will require two night minimum hospital stay for IV heparin (as above), which is not possible in a lesser acute setting. Cardiology consult pending Quality Stroke Does the patient have a stroke diagnosis?: No VTE Prior VTE?: No VTE Risk Level:: Medical - moderate - high VTE Device Contraindication: Treatment Not Indicated VTE Drug Contraindication: N/A - Med Ordered
[2024-07-20] MEDS: Lacosamide 100 MG TABLET 50 MG PO ×2 (04:46→22:17)
[2024-07-20] MEDS: LORazepam 0.5 MG TABLET PO ×3 (04:46→22:19)
[2024-07-20] MEDS: PHENobarbitaL 30 MG TABLET 60 MG PO ×2 (04:46→22:19)
[2024-07-20] MEDS: Lacosamide 100 MG TABLET 200 MG PO ×2 (04:46→22:18)
[2024-07-20] MEDS: Divalproex Sodium 500 MG TABLET.DR PO (04:46)
[2024-07-20] MEDS: Heparin Sodium,Porcine/1/2NS 25,000 UNIT/250 ML IV.SOLN 8.69 UNIT IVCONT (05:12)
[2024-07-20 06:10] LABS: Hematocrit 40.5 % (42.0-52.0); Hemoglobin 13.7 g/dl (14.0-18.0); Mean Corpuscular HGB Conc 33.8 g/dl (31.0-36.0); Mean Corpuscular Hemoglobin 32.9 pg (27.0-33.0); Mean Corpuscular Volume 97.4 fL (80.0-98.0); Mean Platelet Volume 9.1 fL (9.4-12.4); Platelet Count 257 X10*3/uL (160-400); Red Blood Count 4.16 X10*6/uL (4.60-5.80); Red Cell Distribution Width 14.2 % (11.0-16.0); White Blood Count 7.7 X10*3/uL (4.8-10.8)
[2024-07-20 06:16] LABS: INTERNATIONAL NORM RATIO 1.1 (0.9-1.1); Prothrombin Time 13.2 SEC (10.9-12.4)
--- NOTE | 2024-07-20 07:48 | PC.NURSE ---
Message sent to wardrobe consultant speech therapist Bianca Worthington to see patient today, report given [place] [facility] [place]
--- NOTE | 2024-07-20 08:10 | PHA.MEDREC ---
Addendum entered by Dayanara Baires RPh 07/20/24 08:30: REVIEWED BY [facility] Original Note: Pharmacy Consult ? Medication Reconciliation Pharmacy has completed the medication reconciliation. Med list faxed to pharmacy ([facility]).
--- NOTE | 2024-07-20 08:34 | PM.EVENT ---
Event Note Date of Service: 07/20/24 Event Note: patient seen and exmained: Patient is poor historian, just shakes his head for every time any question asked. Otherwise does not look in discomfort or distress. physical exam and a&P as per h&P note: ? nstemi:continue asa/heprin drip, bb on hold hr goes in 40's d/w cardio-continue above ,will add statin,medical amangement. Time Spent With Patient Time: Total time managing care of this patient today ____ minutes.
[2024-07-20 08:56] LABS: Cholesterol 127 mg/dL (<200); HDL Cholesterol 38 mg/dL (>40); LDL Cholesterol Calculated 67 mg/dL (<100); Triglycerides 112 mg/dL (<150)
--- NOTE | 2024-07-20 09:26 | PC.NURSE ---
Unable to complete admission due to patient's cognition status at this time- unable to answer questions, nonverbal. Attempted to contact Mary Grace Vallejo at [phone] from halfway x3 and call was forwarded to voicemail- left a voice message. Attempted to call Guardian Devika Felder at [phone] x2, no answer, did not leave a voice message.
[2024-07-20] MEDS: Divalproex Sodium Sprinkles 125 MG CAP.DR.SPR 250 MG PO (10:05)
[2024-07-20] MEDS: Docusate Sodium 100 MG CAPSULE PO (10:05)
[2024-07-20] MEDS: Finasteride 5 MG TABLET PO (10:05)
[2024-07-20] MEDS: Multivitamin TABLET 1 TAB PO (10:05)
[2024-07-20] MEDS: 0.9 % Sodium Chloride Flush 3 ML SYRINGE IVFLUSH ×3 (10:06→23:59)
[2024-07-20] MEDS: Aspirin 81 MG TAB.CHEW PO (10:06)
[2024-07-20] MEDS: Omeprazole 20 MG CAPSULE.DR PO (10:06)
[2024-07-20] MEDS: metroNIDAZOLE 0.75 % Gel 45 GM TUBE 1 APPL TOPICAL ×2 (10:08→22:20)
[2024-07-20] MEDS: Clotrimazole 1 % Cream 15 GM TUBE 1 APPL TOPICAL ×2 (10:08→22:20)
[2024-07-20] MEDS: Metoprolol Succinate ER 12.5 MG HALFTAB.ER.24H PO (10:08)
--- NOTE | 2024-07-20 11:54 | MHC.CM.PN ---
CHITRA spoke with Nadja/Devika @ [phone] and addressed IMM with her (original will be mailed certified letter to Nadja @ [address] [place] [address], in [place], [place] and a copy has been placed on the chart). Plan is for [facility], once medically cleared for dc. CHITRA has initiated and will follow for dc planning. PCP is Dr. Bimal Hampton.
[2024-07-20 11:58] LABS: PTT Heparin Drip 66.4 SEC (53-77.9)
--- NOTE | 2024-07-20 12:07 | MHC.SL.SWA ---
Speech Pathologist Impression: Risk of Aspiration Due to: Reduced Cognition Dysphasia Diet Status: Liquid Consistency and Strategies for Safe Swallow: Liquid Intake Recommendation: Thin Liquid Intake Strategies: Small Sips Solid Food Consistency: Dietary Recommendations: Chopped/Advanced (NDD3) Additional Modifications to Solid Foods: Patient's main risk is impulsivity, recommend supervision at meals with cuing to slow rate, avoid spilling. Oral Medication Intake: Whole with Puree Please contact the pharmacy regarding appropriate crushable or liquid drug formulations that are available whenever modified delivery is recommended. Compensatory Strategies and Precautions to be Taken for Safe Swallow: Sitting Upright (90 deg) Liquids from Cup Liquids from Straw Small Bites and Sips Alternate Liquids/Solids Rate of Ingestion Change Supervision While Eating and Drinking for Safe Swallow: Total Supervision (1:1) Foods to Avoid: Swallowing Recommended Treatments: Compens. Strategy Educat. Recommendation for Speech: Inpatient Speech Therapy Comment: Patient presents with scattered dentition and mild oral motor signs, as well as general behavioral impulsivity with eating; Swallow otherwise WFL. Recommend UPGRADE diet to Chopped/Advanced (NDD3), continue on thin liquids, pills whole with puree. Patient will require supervision at meals due to impulsivity, risk of spilling food, confusion. MD/RD notified of recommendations by secure text, RN in person. SALES OPERATIONS to f/u X1 for toleration of diet. Frequency/Duration: Date Range for Service Req: Timeline to reassess: Electrode Cleaner Clinican/Clinical Fellow: No Supervisory Statement: I have reviewed and agree with the student/clinical fellow's documentation: N/A Speech Language Pathologist: Bianca Worthington M.A., CCC-SALES OPERATIONS
--- NOTE | 2024-07-20 12:39 | PM.CNCAR ---
History of Present Illness History of Present Illness Date of Service: 07/20/24 Requesting physician: Antionette Farnsworth Chief complaint: Chest Pain, mild elevation of troponin Narrative: 68-year-old gentleman with seizure disorder, intellectual disability and who is nonverbal at baseline presenting for chest pain. The patient is nonverbal and does repetitive hand movements. History is very limited and unreliable in my opinion. He is here for chest pain. He keeps curling his hand on his chest. When I asked him about chest pain he said yes but later similar questioning did not get any response out of him. He has chronic left bundle-branch block. His high sensitivity troponin levels are 71.6 and 89.7. Blood pressure is well controlled. He is currently on a heparin drip. [facility] Past Medical History Medical History (Updated 07/20/24 @ 06:58 by Babatunde Reyna MD) Rosacea Vitamin D deficiency Dysphagia Mitral regurgitation Seizure disorder Intellectual disability Anxiety Social History Social History Household Members: Caregiver Housing: Other Housing Other:: assisted Do you presently have visiting nurse or other home services: Yes Unable to assess alcohol history related to: Unable to respond Patient Tobacco Use Status: Never used Tobacco Advance Directives Date on File: 07/20/24 service: No Meds Allergies Allergy/AdvReac Type Severity Reaction Status Date / Time No Known Allergies Allergy Verified 07/20/24 00:03 [No Known Allergies*] Active Medications: Current Medications Acetaminophen (Acetaminophen 325 Mg Tablet) 650 mg PO Q6H PRN PRN Reason: Pain, Mild 1-3,fever,headache Aspirin (Aspirin 81 Mg Tab.Chew) 81 mg PO DAILY REPLACED BY [facility] Last Admin: 07/20/24 10:06 Dose: 81 mg Bacitracin (Bacitracin Oint 14 Gm Tube) 1 appl TOPICAL TID PRN; Protocol PRN Reason: minor cuts, scrapes, abrasions Calcium Carbonate (Calcium Carbonate 750 Mg Tab.Chew) 750 mg PO Q4H PRN PRN Reason: Heartburn Clonazepam (Clonazepam 0.5 Mg Tablet) 0.5 mg PO BID PRN PRN Reason: seizure disorder Clotrimazole (Clotrimazole 1 % Cream 15 Gm Tube) 1 appl TOPICAL BID REPLACED BY [facility] Last Admin: 07/20/24 10:08 Dose: 1 appl Divalproex Sodium (Divalproex Sodium Sprinkles 125 Mg ) 250 mg PO DAILY REPLACED BY [facility] Last Admin: 07/20/24 10:05 Dose: 250 mg Divalproex Sodium (Divalproex Sodium Sprinkles 125 Mg ) 500 mg PO BEDTIME REPLACED BY [facility] Docusate Sodium (Docusate Sodium 100 Mg Capsule) 100 mg PO DAILY REPLACED BY [facility] Last Admin: 07/20/24 10:05 Dose: 100 mg Finasteride (Finasteride 5 Mg Tablet) 5 mg PO DAILY REPLACED BY [facility] Last Admin: 07/20/24 10:05 Dose: 5 mg Heparin Sodium (Porcine) (Heparin Sodium,Porcine 5,000 Unit/Ml Vial) 2,900 unit 40 unit/kg (2900 unit) IVPUSH PROTOCOL BOLUS PRN; Protocol PRN Reason: 40 unit/kg - Heparin Protocol Heparin Sodium (Porcine) (Heparin Sodium,Porcine 5,000 Unit/Ml Vial) 5,800 unit 80 unit/kg (5800 unit) IVPUSH PROTOCOL BOLUS PRN; Protocol PRN Reason: 80 unit/kg - Heparin Protocol Heparin Sodium/Sodium Chloride (Heparin Sodium,Porcine/1/2ns) 25,000 unit in 250 mls @ 0 mls/hr IVCONT .Q0M REPLACED BY [facility]; Protocol Last Titration: 07/20/24 12:00 Dose: 12 units/kg/hr, 8.69 mls/hr Lacosamide (Lacosamide 100 Mg Tablet) 50 mg PO BID REPLACED BY [facility] Lacosamide (Lacosamide 100 Mg Tablet) 200 mg PO BID REPLACED BY [facility] Lorazepam (Lorazepam 0.5 Mg Tablet) 0.5 mg PO BID REPLACED BY [facility] Last Admin: 07/20/24 10:06 Dose: 0.5 mg Magnesium Hydroxide (Milk Of Magnesia 30 Ml Oral.Susp) 30 ml PO DAILY PRN PRN Reason: Constipation Melatonin (Melatonin 3 Mg Tablet) 6 mg PO BEDTIME PRN PRN Reason: Insomnia Metoprolol Succinate (Metoprolol Succinate Er 12.5 Mg Halftab.Er.24h) 12.5 mg PO DAILY REPLACED BY [facility]; Protocol Last Admin: 07/20/24 10:08 Dose: 12.5 mg Metronidazole (Metronidazole 0.75 % Gel 45 Gm Tube) 1 appl TOPICAL BID REPLACED BY [facility] Last Admin: 07/20/24 10:08 Dose: 1 appl Multivitamins/Vitamin C (Multivitamin Tablet) 1 tab PO DAILY REPLACED BY [facility] Last Admin: 07/20/24 10:05 Dose: 1 tab Nystatin (Nystatin Powder 15 Gm Bottle) 1 appl TOPICAL BID REPLACED BY [facility]; Protocol Omeprazole (Omeprazole 20 Mg Capsule.Dr) 20 mg PO DAILY@0630 REPLACED BY [facility] Last Admin: 07/20/24 10:06 Dose: 20 mg Ondansetron HCl (Ondansetron Hcl 4 Mg/2 Ml Vial) 4 mg IVPUSH Q8H PRN PRN Reason: Nausea and Vomiting Phenobarbital (Phenobarbital 30 Mg Tablet) 60 mg PO BID REPLACED BY [facility] Sodium Chloride (0.9 % Sodium Chloride Flush 3 Ml Syringe) 3 ml IVFLUSH QSHIFT REPLACED BY [facility] Last Admin: 07/20/24 10:12 Dose: 3 ml Tamsulosin HCl (Tamsulosin Hcl 0.4 Mg Capsule) 0.8 mg PO BEDTIME REPLACED BY [facility] Home Medications ?Medication ?Instructions ?Recorded ?Confirmed ?Last Taken ?Type clonazepam 0.5 mg disintegrating 0.5 mg PO BID PRN seizure disorder 01/25/23 07/20/24 Unknown History tablet divalproex 125 mg capsule,delayed 250 mg PO DAILY 01/25/23 07/20/24 Unknown History release sprinkle finasteride 5 mg tablet 5 mg PO DAILY 01/25/23 07/20/24 Unknown History lacosamide 200 mg tablet 200 mg PO BID 01/25/23 07/20/24 Unknown History lacosamide 50 mg tablet 50 mg PO BID 01/25/23 07/20/24 Unknown History lorazepam 0.5 mg tablet 0.5 mg PO BID Anxiety 01/25/23 07/20/24 Unknown History metoprolol succinate 25 mg 12.5 mg PO DAILY 01/25/23 07/20/24 Unknown History tablet,extended release 24 hr nystatin 100,000 unit/gram topical 1 appl topical DAILY 01/25/23 07/20/24 Unknown History powder phenobarbital 60 mg tablet 60 mg PO BID 01/25/23 07/20/24 Unknown History tamsulosin 0.4 mg capsule 0.8 mg PO BEDTIME 01/25/23 07/20/24 Unknown History acetaminophen 325 mg tablet 650 mg PO Q6H PRN Pain 07/20/24 07/20/24 Unknown History (Tylenol) aspirin 81 mg tablet,delayed 81 mg PO DAILY 07/20/24 07/20/24 Unknown History release bacitracin 500 unit/gram topical 1 appl topical TID PRN minor cuts, 07/20/24 07/20/24 Unknown History ointment scrapes, abrasions ciclopirox 0.77 % topical cream 1 appl topical BID 07/20/24 07/20/24 Unknown History divalproex 125 mg capsule,delayed 500 mg PO BEDTIME 07/20/24 07/20/24 Unknown History release sprinkle docusate sodium 100 mg capsule 100 mg PO DAILY 07/20/24 07/20/24 Unknown History metronidazole 0.75 % topical cream 1 appl topical DAILY 07/20/24 07/20/24 Unknown History multivitamin 1 tab PO DAILY 07/20/24 07/20/24 Unknown History Physical Exam Vital Signs: Vital Signs: Last Vital Signs Temp 98.1 F 07/20/24 10:56 Pulse 68 07/20/24 10:56 Resp 20 07/20/24 10:56 BP 125/66 07/20/24 10:56 Pulse Ox 99 07/20/24 10:56 O2 Del Method Room Air 07/20/24 10:56 BMI result Body Mass Index 23.3 GENERAL APPEARANCE: in no acute distress. NECK: no carotid bruit, no jugular venous distention. SKIN: no suspicious lesions, warm and dry. HEART: no murmurs, regular rate and rhythm. LUNGS: clear to auscultation bilaterally. ABDOMEN: soft, nontender. EXTREMITIES: no edema. PERIPHERAL PULSES: equal. Objective Labs and Meds 07/20/24 05:27 07/20/24 01:40 Lab results: Laboratory Results - last 24 hr 07/20/24 07/20/24 07/20/24 01:40 03:30 05:27 WBC 7.0 7.7 RBC 4.15 L 4.16 L Hgb 13.5 L 13.7 L Hct 40.4 L 40.5 L MCV 97.3 97.4 MCH 32.5 32.9 MCHC 33.4 33.8 RDW 14.1 14.2 Plt Count 266 257 MPV 8.7 L 9.1 L Immature Gran % (Auto) 0.4 Neut % (Auto) 66.3 Lymph % (Auto) 21.1 [place] % (Auto) 10.2 Eos % (Auto) 1.1 Baso % (Auto) 0.9 Lymph # (Auto) 1.5 [place] # (Auto) 0.7 Eos # (Auto) 0.1 Baso # (Auto) 0.1 Abs Immat Gran (auto) 0.03 Absolute Neuts (auto) 4.6 Absolute Nucleated RBC 0.000 0.000 Nucleated RBC % (auto) 0.0 0.0 PT 12.7 H 13.2 H INR 1.1 1.1 APTT 32.3 aPTT Heparin Protocol Sodium 140 Potassium 4.7 Chloride 112 H Carbon Dioxide 23 Anion Gap 10 L BUN 25 H Creatinine 0.71 Estim Creat Clear Calc 103.3 Estimated GFR > 60 Random Glucose 98 Calcium 8.4 D Total Bilirubin 0.2 AST 17 ALT 19 Alkaline Phosphatase 99 Troponin I High Sens 71.6 H 89.7 H Total Protein 6.3 L Albumin 3.5 Triglycerides 112 Cholesterol 127 LDL Cholesterol, Calc 67 HDL Cholesterol 38 L 07/20/24 11:30 WBC RBC Hgb Hct MCV MCH MCHC RDW Plt Count MPV Immature Gran % (Auto) Neut % (Auto) Lymph % (Auto) [place] % (Auto) Eos % (Auto) Baso % (Auto) Lymph # (Auto) [place] # (Auto) Eos # (Auto) Baso # (Auto) Abs Immat Gran (auto) Absolute Neuts (auto) Absolute Nucleated RBC Nucleated RBC % (auto) PT INR APTT aPTT Heparin Protocol 66.4 Sodium Potassium Chloride Carbon Dioxide Anion Gap BUN Creatinine Estim Creat Clear Calc Estimated GFR Random Glucose Calcium Total Bilirubin AST ALT Alkaline Phosphatase Troponin I High Sens Total Protein Albumin Triglycerides Cholesterol LDL Cholesterol, Calc HDL Cholesterol Assessment and Plan (1) NSTEMI (non-ST elevated myocardial infarction): Status: Acute Plan [age] year gentleman who is nonverbal and has intellectual disability and apparently is here for chest pain. I do not think that any history can be reliably taken from the patient. His troponins are minimally abnormal at 71 and 89. EKGs has chronic left bundle-branch block without any obvious changes but it definitely limits ischemic evaluation by EKG. He appears to be comfortable until you interact with him when he does repetitive arm movements including curling his hand over his chest. I think this is a challenging situation and I am unsure whether he truly has any symptoms or not. In any case he is currently on heparin drip and he has been tolerating it. I agree baby aspirin should be continued. His LDL is 67 and low-dose atorvastatin can be tried at 20 mg daily. I think we continue heparin drip for now and do echocardiography on him and decide about further workup based on that. I think it will be hard to do any procedures on him because he may not be able to follow commands. If he truly has ACS then he is best managed medically at this point. Thank you for allowing me to participate in the care of your patient. Please feel free to contact me if you have any questions. Procedures Date of Service Date of Service: 07/20/24
--- NOTE | 2024-07-20 14:38 | PC.NURSE ---
Able to get in touch with Oscar (staff) from [facility], per him states pt is on nectar thick fluids and ground diet at home. Verified pharmacy was [facility].
[2024-07-20 15:47] LABS: Thyroid Stimulating Hormone 1.79 uIU/mL (0.32-4.0)
[2024-07-20 17:48] LABS: PTT Heparin Drip 71.7 SEC (53-77.9)
[2024-07-20] MEDS: Tamsulosin HCL 0.4 MG CAPSULE 0.8 MG PO (22:18)
[2024-07-20] MEDS: Divalproex Sodium Sprinkles 125 MG CAP.DR.SPR 500 MG PO (22:19)
[2024-07-20] MEDS: Nystatin Powder 15 GM BOTTLE 1 APPL TOPICAL (22:20)
[2024-07-21 03:10] VITALS: BP 132/71; PULSE 64; RESP 16; TEMP 36.5; O2SAT 97
[2024-07-21] MEDS: Heparin Sodium,Porcine/1/2NS 25,000 UNIT/250 ML IV.SOLN 8.69 UNIT IVCONT (04:11)
[2024-07-21] MEDS: Omeprazole 20 MG CAPSULE.DR PO (05:50)
[2024-07-21 07:14] LABS: MANUAL DIFF FLAG NO
[2024-07-21 07:23] VITALS: BP 111/67; PULSE 66; RESP 18; TEMP 36.8; O2SAT 95
[2024-07-21 07:26] LABS: Basophils Absolute Auto 0.1 X10*3/uL (0.0-0.2); Eosinophils Absolute Auto 0.3 X10*3/uL (0.0-0.4); Eosinophils Percent Auto 3.6 % (0-4); Hematocrit 42.4 % (42.0-52.0); Hemoglobin 14.3 g/dl (14.0-18.0); Imm Gran Abs Auto 0.02 X10*3/uL (0.00-0.03); Imm Gran Pct Auto 0.3 % (0.0-0.4); Lymphocytes Absolute Auto 2.9 X10*3/uL (1.2-4.9); Lymphocytes Percent Auto 41.8 % (20-40); Mean Corpuscular HGB Conc 33.7 g/dl (31.0-36.0); Mean Corpuscular Hemoglobin 32.4 pg (27.0-33.0); Mean Corpuscular Volume 96.1 fL (80.0-98.0); Mean Platelet Volume 8.9 fL (9.4-12.4); Monocytes Absolute Auto 0.6 X10*3/uL (0.1-1.2); Neutrophils Absolute Auto 3.1 x10*3/uL (2.0-8.3); Neutrophils Percent Auto 45.3 % (45-73); Platelet Count 254 X10*3/uL (160-400); Red Blood Count 4.41 X10*6/uL (4.60-5.80); White Blood Count 6.9 X10*3/uL (4.8-10.8)
[2024-07-21 07:30] LABS: PTT Heparin Drip 69.1 SEC (53-77.9)
[2024-07-21 07:53] LABS: Anion Gap 12 (12-20); Blood Urea Nitrogen 17 mg/dL (9-16); Calcium 8.8 mg/dL (8.4-10.2); Carbon Dioxide 24 mmol/L (22-29); Chloride 109 mmol/L (96-108); Creatinine Clr Calc Pharmacy 105.7; Estimated Glomerular Filt Rate > 60; Glucose Random 89 mg/dL (60-115); Potassium 4.3 mmol/L (3.3-5.1); Sodium 141 mmol/L (135-145)
[2024-07-21] MEDS: LORazepam 0.5 MG TABLET PO ×2 (09:43→20:30)
[2024-07-21] MEDS: Finasteride 5 MG TABLET PO (09:44)
[2024-07-21] MEDS: Acetaminophen 325 MG TABLET 650 MG PO (09:44)
[2024-07-21] MEDS: Divalproex Sodium Sprinkles 125 MG CAP.DR.SPR 250 MG PO (09:44)
[2024-07-21] MEDS: PHENobarbitaL 30 MG TABLET 60 MG PO ×2 (09:44→20:30)
[2024-07-21] MEDS: Lacosamide 100 MG TABLET 50 MG PO ×2 (09:44→20:28)
[2024-07-21] MEDS: Docusate Sodium 100 MG CAPSULE PO (09:44)
[2024-07-21] MEDS: Aspirin 81 MG TAB.CHEW PO (09:44)
[2024-07-21] MEDS: Clotrimazole 1 % Cream 15 GM TUBE 1 APPL TOPICAL ×2 (09:45→20:30)
[2024-07-21] MEDS: Multivitamin TABLET 1 TAB PO (09:45)
[2024-07-21] MEDS: Lacosamide 100 MG TABLET 200 MG PO ×2 (09:45→20:29)
[2024-07-21] MEDS: metroNIDAZOLE 0.75 % Gel 45 GM TUBE 1 APPL TOPICAL ×2 (09:45→20:31)
[2024-07-21] MEDS: 0.9 % Sodium Chloride Flush 3 ML SYRINGE IVFLUSH ×2 (09:45→12:53)
[2024-07-21] MEDS: Nystatin Powder 15 GM BOTTLE 1 APPL TOPICAL ×2 (09:45→20:30)
[2024-07-21 10:58] VITALS: BP 117/67; PULSE 68; RESP 20; TEMP 36.4; O2SAT 95
--- NOTE | 2024-07-21 12:02 | PM.PNCARD ---
Subjective Subjective Date of Service: 07/21/24 Interval history: Seen and examined at bedside. Physical Exam Vital Signs: Last Vital Signs Temp 97.6 F 07/21/24 10:58 Pulse 68 07/21/24 10:58 Resp 20 07/21/24 10:58 BP 117/67 07/21/24 10:58 Pulse Ox 95 07/21/24 10:58 O2 Del Method Room Air 07/21/24 10:58 BMI result Body Mass Index 23.3 GENERAL APPEARANCE: in no acute distress. NECK: no carotid bruit, no jugular venous distention. SKIN: no suspicious lesions, warm and dry. HEART: no murmurs, regular rate and rhythm. LUNGS: clear to auscultation bilaterally. ABDOMEN: soft, nontender. EXTREMITIES: no edema. PERIPHERAL PULSES: equal. Objective Labs and Meds 07/21/24 07:08 07/21/24 07:08 Lab results: Laboratory Results - last 24 hr 07/20/24 07/20/24 07/21/24 05:27 17:13 07:08 WBC 6.9 RBC 4.41 L Hgb 14.3 Hct 42.4 MCV 96.1 MCH 32.4 MCHC 33.7 RDW 14.0 Plt Count 254 MPV 8.9 L Immature Gran % (Auto) 0.3 Neut % (Auto) 45.3 Lymph % (Auto) 41.8 H [place] % (Auto) 8.0 Eos % (Auto) 3.6 Baso % (Auto) 1.0 Lymph # (Auto) 2.9 [place] # (Auto) 0.6 Eos # (Auto) 0.3 Baso # (Auto) 0.1 Abs Immat Gran (auto) 0.02 Absolute Neuts (auto) 3.1 Absolute Nucleated RBC 0.000 Nucleated RBC % (auto) 0.0 aPTT Heparin Protocol 71.7 69.1 Sodium 141 Potassium 4.3 Chloride 109 H Carbon Dioxide 24 Anion Gap 12 BUN 17 H Creatinine 0.70 Estim Creat Clear Calc 105.7 Estimated GFR > 60 Random Glucose 89 Calcium 8.8 TSH 1.79 Progress Note: A&P Assessment and plan (1) Intellectual disability: Status: Acute (2) NSTEMI (non-ST elevated myocardial infarction): Status: Acute Plan [age] year gentleman with intellectual disability, seizure disorder and anxiety presenting with ?chest discomfort with very mildly elevated troponin level. Reliable history is not possible. He has left bundle-branch block which is chronic. Challenging situation. I have opted for baby aspirin and 48 hour of Lovenox. ECHO tomorrow. If he has a wall motion abnormality then management is medical in this gentleman and we will not pursue any invasive procedures. Thank you for allowing me to participate in the care of your patient. Please feel free to contact me if you have any questions. Time Spent With Patient Time: Total time managing care of this patient today ____ minutes. Progress Note: Quality Stroke Does the patient have a stroke diagnosis?: No Procedures Date of Service Date of Service: 07/21/24
[2024-07-21] MEDS: Enoxaparin Sodium 80 MG/0.8 ML SYRINGE 70 MG SUBCUT (12:53)
[2024-07-21 15:08] VITALS: BP 113/71; PULSE 70; RESP 16; TEMP 36.8; O2SAT 96
--- NOTE | 2024-07-21 15:27 | P.PNIM_ITS ---
Subjective Subjective Date of Service: 07/21/24 Interval History: nstemi Review of Systems unclear if has any pain poor historian Review of Systems: Yes all other systems are reviewed and are negative Physical Exam 2 Vital Signs: Vital Signs: Last Vital Signs Temp 98.2 F 07/21/24 15:08 Pulse 70 07/21/24 15:08 Resp 16 07/21/24 15:08 BP 113/71 07/21/24 15:08 Pulse Ox 96 07/21/24 15:08 O2 Del Method Room Air 07/21/24 15:08 BMI result Body Mass Index 23.3 cvs:rrr, S1-S2 heard pulm:Regular breath sounds bilaterally, no wheezing or crackles appreciated abd:Abdomen soft nontender, no guarding. Patient is awake, nonverbal, intermittently follows commands Psych: Normal mood No pedal edema Objective Data Active Medications Acetaminophen (Acetaminophen 325 Mg Tablet) 650 mg PO Q6H PRN PRN Reason: Pain, Mild 1-3,fever,headache Last Admin: 07/21/24 09:44 Dose: 650 mg Documented By: PERLA Aspirin (Aspirin 81 Mg Tab.Chew) 81 mg PO DAILY [facility] Last Admin: 07/21/24 09:44 Dose: 81 mg Documented By: PERLA Bacitracin (Bacitracin Oint 14 Gm Tube) 1 appl TOPICAL TID PRN; Protocol PRN Reason: minor cuts, scrapes, abrasions Calcium Carbonate (Calcium Carbonate 750 Mg Tab.Chew) 750 mg PO Q4H PRN PRN Reason: Heartburn Clonazepam (Clonazepam 0.5 Mg Tablet) 0.5 mg PO BID PRN PRN Reason: seizure disorder Clotrimazole (Clotrimazole 1 % Cream 15 Gm Tube) 1 appl TOPICAL BID [facility] Last Admin: 07/21/24 09:45 Dose: 1 appl Documented By: PERLA Divalproex Sodium (Divalproex Sodium Sprinkles 125 Mg ) 250 mg PO DAILY [facility] Last Admin: 07/21/24 09:44 Dose: 250 mg Documented By: PERLA Divalproex Sodium (Divalproex Sodium Sprinkles 125 Mg ) 500 mg PO BEDTIME [facility] Last Admin: 07/20/24 22:19 Dose: 500 mg Documented By: DIOGENES Docusate Sodium (Docusate Sodium 100 Mg Capsule) 100 mg PO DAILY [facility] Last Admin: 07/21/24 09:44 Dose: 100 mg Documented By: PERLA Enoxaparin Sodium (Enoxaparin Sodium 80 Mg/0.8 Ml Syringe) 70 mg SUBCUT Q12H [facility] Last Admin: 07/21/24 12:53 Dose: 70 mg Documented By: PERLA Finasteride (Finasteride 5 Mg Tablet) 5 mg PO DAILY [facility] Last Admin: 07/21/24 09:44 Dose: 5 mg Documented By: PERLA Lacosamide (Lacosamide 100 Mg Tablet) 50 mg PO BID [facility] Last Admin: 07/21/24 09:44 Dose: 50 mg Documented By: PERLA Lacosamide (Lacosamide 100 Mg Tablet) 200 mg PO BID [facility] Last Admin: 07/21/24 09:45 Dose: 200 mg Documented By: PERLA Lorazepam (Lorazepam 0.5 Mg Tablet) 0.5 mg PO BID [facility] Last Admin: 07/21/24 09:43 Dose: 0.5 mg Documented By: PERLA Magnesium Hydroxide (Milk Of Magnesia 30 Ml Oral.Susp) 30 ml PO DAILY PRN PRN Reason: Constipation Melatonin (Melatonin 3 Mg Tablet) 6 mg PO BEDTIME PRN PRN Reason: Insomnia Metoprolol Succinate (Metoprolol Succinate Er 12.5 Mg Halftab.Er.24h) 12.5 mg PO DAILY [facility]; Protocol Last Admin: 07/20/24 10:08 Dose: 12.5 mg Documented By: PERLA Metronidazole (Metronidazole 0.75 % Gel 45 Gm Tube) 1 appl TOPICAL BID [facility] Last Admin: 07/21/24 09:45 Dose: 1 appl Documented By: PERLA Multivitamins/Vitamin C (Multivitamin Tablet) 1 tab PO DAILY [facility] Last Admin: 07/21/24 09:45 Dose: 1 tab Documented By: PERLA Nystatin (Nystatin Powder 15 Gm Bottle) 1 appl TOPICAL BID [facility]; Protocol Last Admin: 07/21/24 09:45 Dose: 1 appl Documented By: PERLA Omeprazole (Omeprazole 20 Mg Capsule.Dr) 20 mg PO DAILY@0630 [facility] Last Admin: 07/21/24 05:50 Dose: 20 mg Documented By: DIOGENES Ondansetron HCl (Ondansetron Hcl 4 Mg/2 Ml Vial) 4 mg IVPUSH Q8H PRN PRN Reason: Nausea and Vomiting Phenobarbital (Phenobarbital 30 Mg Tablet) 60 mg PO BID [facility] Last Admin: 07/21/24 09:44 Dose: 60 mg Documented By: LISA-MARCO Sodium Chloride (0.9 % Sodium Chloride Flush 3 Ml Syringe) 3 ml IVFLUSH QSHIFT [facility] Last Admin: 07/21/24 12:53 Dose: 3 ml Documented By: PERLA Tamsulosin HCl (Tamsulosin Hcl 0.4 Mg Capsule) 0.8 mg PO BEDTIME [facility] Last Admin: 07/20/24 22:18 Dose: 0.8 mg Documented By: DIOGENES Labs 07/21/24 07:08 07/21/24 07:08 Labs: Laboratory Results - last 24 hr 07/20/24 07/20/24 07/21/24 05:27 17:13 07:08 MCV 96.1 MCH 32.4 MCHC 33.7 RDW 14.0 Plt Count 254 MPV 8.9 L Immature Gran % (Auto) 0.3 Neut % (Auto) 45.3 Lymph % (Auto) 41.8 H Starke % (Auto) 8.0 Eos % (Auto) 3.6 Baso % (Auto) 1.0 Lymph # (Auto) 2.9 Starke # (Auto) 0.6 Eos # (Auto) 0.3 Baso # (Auto) 0.1 Abs Immat Gran (auto) 0.02 Absolute Neuts (auto) 3.1 Absolute Nucleated RBC 0.000 Nucleated RBC % (auto) 0.0 aPTT Heparin Protocol 71.7 69.1 Anion Gap 12 Estim Creat Clear Calc 105.7 Estimated GFR > 60 Random Glucose 89 Calcium 8.8 TSH 1.79 Assessment and Plan (1) NSTEMI (non-ST elevated myocardial infarction): Status: Acute Assessment and Plan: 68-year-old male with pertinent history of seizure disorder, moderate intellectual disability nonverbal at baseline, mood disorder, mitral regurgitation, moderate dysphagia, urinary incontinence who was sent to the emergency department for evaluation of chest pain. NSTEMI: continue cardiac monitoring. continue asa/lovenox (48hrs ) . added echo cardiology following Seizure disorder/ Mood disorder: Continue Vimpat, Depakote, Ativan, phenobarbital Urinary incontinence: On Flomax and Proscar Dysphagia: speech saw patient,diet advanced. DVT prophylaxis: IV heparin ongoing need :nsetmi-continue on anticoagulation 48 hours, cardiac workup and cardiology follow-up. Quality Stroke Does the patient have a stroke diagnosis?: No VTE Prior VTE?: No VTE Risk Level:: Medical - moderate - high VTE Device Contraindication: Treatment Not Indicated VTE Drug Contraindication: N/A - Med Ordered
[2024-07-21 20:05] VITALS: BP 114/73; PULSE 61; RESP 18; TEMP 36.7; O2SAT 96
[2024-07-21] MEDS: Tamsulosin HCL 0.4 MG CAPSULE 0.8 MG PO (20:29)
[2024-07-21] MEDS: Divalproex Sodium Sprinkles 125 MG CAP.DR.SPR 500 MG PO (20:29)
[2024-07-22] VITALS (7 sets, daily range): BP systolic 101–128; BP diastolic 59–70; PULSE 55–84; RESP 14–20; TEMP 36.2–36.4; O2SAT 93–97
[2024-07-22] MEDS: Enoxaparin Sodium 80 MG/0.8 ML SYRINGE 70 MG SUBCUT ×3 (00:44→23:34)
[2024-07-22] MEDS: 0.9 % Sodium Chloride Flush 3 ML SYRINGE IVFLUSH ×4 (00:45→20:46)
[2024-07-22] MEDS: Omeprazole 20 MG CAPSULE.DR PO (05:06)
[2024-07-22] MEDS: Lacosamide 100 MG TABLET 50 MG PO ×2 (08:35→20:42)
[2024-07-22] MEDS: Lacosamide 100 MG TABLET 200 MG PO ×2 (08:35→20:42)
[2024-07-22] MEDS: LORazepam 0.5 MG TABLET PO ×2 (08:35→20:44)
[2024-07-22] MEDS: Multivitamin TABLET 1 TAB PO (08:37)
[2024-07-22] MEDS: PHENobarbitaL 30 MG TABLET 60 MG PO ×2 (08:37→20:44)
[2024-07-22] MEDS: Docusate Sodium 100 MG CAPSULE PO (08:37)
[2024-07-22] MEDS: Finasteride 5 MG TABLET PO (08:37)
[2024-07-22] MEDS: Aspirin 81 MG TAB.CHEW PO (08:37)
[2024-07-22] MEDS: Divalproex Sodium Sprinkles 125 MG CAP.DR.SPR 250 MG PO (08:37)
[2024-07-22] MEDS: metroNIDAZOLE 0.75 % Gel 45 GM TUBE 1 APPL TOPICAL ×2 (08:42→20:46)
[2024-07-22] MEDS: Clotrimazole 1 % Cream 15 GM TUBE 1 APPL TOPICAL ×2 (08:42→20:46)
[2024-07-22] MEDS: Nystatin Powder 15 GM BOTTLE 1 APPL TOPICAL ×2 (08:42→20:46)
--- NOTE | 2024-07-22 09:09 | P.PNIM_ITS ---
Subjective Subjective Date of Service: 07/22/24 Interval History: chest discomfort/elevated tropnins Review of Systems seems same . unable to tell ,looks comfortable overnight no new events . Review of Systems: Yes all other systems are reviewed and are negative Physical Exam 2 Vital Signs: Vital Signs: Last Vital Signs Temp 97.5 F 07/22/24 08:00 Pulse 55 07/22/24 08:00 Resp 18 07/22/24 08:00 BP 114/69 07/22/24 08:00 Pulse Ox 96 07/22/24 08:00 O2 Del Method Room Air 07/22/24 08:00 BMI result Body Mass Index 23.3 cvs:rrr, S1-S2 heard pulm:air netry fair , no wheezing or crackles. abd:Abdomen soft nontender, no guarding. Patient is awake, nonverbal, intermittently follows commands Psych: Normal mood No pedal edema Objective Data Active Medications Acetaminophen (Acetaminophen 325 Mg Tablet) 650 mg PO Q6H PRN PRN Reason: Pain, Mild 1-3,fever,headache Last Admin: 07/21/24 09:44 Dose: 650 mg Documented By: PERLA Aspirin (Aspirin 81 Mg Tab.Chew) 81 mg PO DAILY [facility] Last Admin: 07/22/24 08:37 Dose: 81 mg Documented By: APOLLO Bacitracin (Bacitracin Oint 14 Gm Tube) 1 appl TOPICAL TID PRN; Protocol PRN Reason: minor cuts, scrapes, abrasions Calcium Carbonate (Calcium Carbonate 750 Mg Tab.Chew) 750 mg PO Q4H PRN PRN Reason: Heartburn Clonazepam (Clonazepam 0.5 Mg Tablet) 0.5 mg PO BID PRN PRN Reason: seizure disorder Clotrimazole (Clotrimazole 1 % Cream 15 Gm Tube) 1 appl TOPICAL BID [facility] Last Admin: 07/22/24 08:42 Dose: 1 appl Documented By: APOLLO Divalproex Sodium (Divalproex Sodium Sprinkles 125 Mg ) 250 mg PO DAILY [facility] Last Admin: 07/22/24 08:37 Dose: 250 mg Documented By: APOLLO Divalproex Sodium (Divalproex Sodium Sprinkles 125 Mg ) 500 mg PO BEDTIME [facility] Last Admin: 07/21/24 20:29 Dose: 500 mg Documented By: BRIDGETT Docusate Sodium (Docusate Sodium 100 Mg Capsule) 100 mg PO DAILY [facility] Last Admin: 07/22/24 08:37 Dose: 100 mg Documented By: APOLLO Enoxaparin Sodium (Enoxaparin Sodium 80 Mg/0.8 Ml Syringe) 70 mg SUBCUT Q12H [facility] Last Admin: 07/22/24 00:44 Dose: 70 mg Documented By: BRIDGETT Finasteride (Finasteride 5 Mg Tablet) 5 mg PO DAILY [facility] Last Admin: 07/22/24 08:37 Dose: 5 mg Documented By: APOLLO Lacosamide (Lacosamide 100 Mg Tablet) 50 mg PO BID [facility] Last Admin: 07/22/24 08:35 Dose: 50 mg Documented By: APOLLO Lacosamide (Lacosamide 100 Mg Tablet) 200 mg PO BID [facility] Last Admin: 07/22/24 08:35 Dose: 200 mg Documented By: APOLLO Lorazepam (Lorazepam 0.5 Mg Tablet) 0.5 mg PO BID [facility] Last Admin: 07/22/24 08:35 Dose: 0.5 mg Documented By: APOLLO Magnesium Hydroxide (Milk Of Magnesia 30 Ml Oral.Susp) 30 ml PO DAILY PRN PRN Reason: Constipation Melatonin (Melatonin 3 Mg Tablet) 6 mg PO BEDTIME PRN PRN Reason: Insomnia Metoprolol Succinate (Metoprolol Succinate Er 12.5 Mg Halftab.Er.24h) 12.5 mg PO DAILY [facility]; Protocol Last Admin: 07/20/24 10:08 Dose: 12.5 mg Documented By: PERLA Metronidazole (Metronidazole 0.75 % Gel 45 Gm Tube) 1 appl TOPICAL BID [facility] Last Admin: 07/22/24 08:42 Dose: 1 appl Documented By: APOLLO Multivitamins/Vitamin C (Multivitamin Tablet) 1 tab PO DAILY [facility] Last Admin: 07/22/24 08:37 Dose: 1 tab Documented By: APOLLO Nystatin (Nystatin Powder 15 Gm Bottle) 1 appl TOPICAL BID [facility]; Protocol Last Admin: 07/22/24 08:42 Dose: 1 appl Documented By: APOLLO Omeprazole (Omeprazole 20 Mg Capsule.) 20 mg PO DAILY@0630 [facility] Last Admin: 07/22/24 05:06 Dose: 20 mg Documented By: BRIDGETT Ondansetron HCl (Ondansetron Hcl 4 Mg/2 Ml Vial) 4 mg IVPUSH Q8H PRN PRN Reason: Nausea and Vomiting Phenobarbital (Phenobarbital 30 Mg Tablet) 60 mg PO BID [facility] Last Admin: 07/22/24 08:37 Dose: 60 mg Documented By: APOLLO Sodium Chloride (0.9 % Sodium Chloride Flush 3 Ml Syringe) 3 ml IVFLUSH QSHIFT [facility] Last Admin: 07/22/24 08:37 Dose: 3 ml Documented By: APOLLO Tamsulosin HCl (Tamsulosin Hcl 0.4 Mg Capsule) 0.8 mg PO BEDTIME [facility] Last Admin: 07/21/24 20:29 Dose: 0.8 mg Documented By: BRIDGETT Labs 07/21/24 07:08 07/21/24 07:08 Assessment and Plan (1) NSTEMI (non-ST elevated myocardial infarction): Status: Acute Assessment and Plan: 68-year-old male with pertinent history of seizure disorder, moderate intellectual disability nonverbal at baseline, mood disorder, mitral regurgitation, moderate dysphagia, urinary incontinence who was sent to the emergency department for evaluation of chest pain. NSTEMI: continue cardiac monitoring. continue asa/lovenox (48hrs ) . added echo cardiology following Seizure disorder/ Mood disorder: Continue Vimpat, Depakote, Ativan, phenobarbital Urinary incontinence: On Flomax and Proscar Dysphagia: speech saw patient,diet advanced. DVT prophylaxis: IV heparin ongoing need :nsetmi-continue on anticoagulation 48 hours, cardiac workup and cardiology follow-up. Quality Stroke Does the patient have a stroke diagnosis?: No VTE Prior VTE?: No VTE Risk Level:: Medical - moderate - high VTE Device Contraindication: Treatment Not Indicated VTE Drug Contraindication: N/A - Med Ordered
--- NOTE | 2024-07-22 10:47 | PC.NURSE ---
skilled nursing nursing fashion supervisor : Manuel [phone]
--- NOTE | 2024-07-22 12:13 | MHC.CM.PN ---
Per rounds, pt is not ready to DC, he requires ongoing cardiology care for NSTEMI. DCP is to return to retirement.
--- NOTE | 2024-07-22 12:25 | HO.WOUND ---
Wound Consult: Initial 68yr old?male admitted to [facility] [place] on 07/20/24 - See progress notes and H&P for detailed history.? Wound consult placed for Groin.? Patient agreeable to assessment and photo documentation although he did not verbally interact with his environmen.? Bilateral Groin Etiology: ??MASD Present on Admission direct care team reports fungal dermatitis - two topical creams in use and nystatin powder in use as well. There is no evidence at this time to fungal dermatitis - there is not yeast odor noted and no advancing satellite lesions noted. However if there was evidence prior to initiating treatment would recommend continue with treatment for total of 10 days. Wound Bed: Hyperpigmented moist tissue with in skin folds. Drainage / Odor: None Edges: ? Mirrored Melody wound: Intact ? No Induration, Fluctuance or Warmth noted Pain: denies Goals of Treatment: ? Barrier cream and off load pressure Bilateral heels assessed for intact pink blanchable tissue - the heels bones are prominent and would benefit from foam dressing application and off loading pressure with pillows. Bilateral heels floated off of bed surface with pillows. Recommendations: 1. Turn and Reposition every 2 hours and as needed for patient comfort.? Use pillows or wedges to support off loading positions. 2. Off Load all bony prominences with use of pillows and heel boots if needed.? Apply Preventative foams where needed. ? 3. Monitor for incontinence and moisture control, use barrier creams when needed for prevention and treatment. 4. Provide adequate and supplemental nutrition.? 5. Continue low air loss mattress. 6. When applicable maintain blood glucose levels per Providers order. Bilateral Heels - Apply skin prep allow to dry. Apply heel foam dressing to aid in off loading pressure. Peel back and assess Q shift and change every 5 days and PRN. Groin - Cleanse with PH balanced wipes or spray, dry well. Apply antifungal treatment per provider orders. Apply barrier cream to protect from moisture and friction twice daily and PRN after episodes of incontinence. Re-consult wound care Nurse for wound deterioration or wound changes.
--- NOTE | 2024-07-22 15:52 | MHC.SLORD ---
Speech Language Pathology Order Status: RN consulted, no concerns with pt PO tolerance. 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 Of note: pt baseline diet reported as NDD2 with NTL. Pt currently on NDD1 with NTL.
[2024-07-22] MEDS: Tamsulosin HCL 0.4 MG CAPSULE 0.8 MG PO (20:43)
[2024-07-22] MEDS: Divalproex Sodium Sprinkles 125 MG CAP.DR.SPR 500 MG PO (20:43)
[2024-07-23 04:00] VITALS: BP 106/63; PULSE 66; RESP 15; TEMP 36.4; O2SAT 95
[2024-07-23] MEDS: Omeprazole 20 MG CAPSULE.DR PO (05:46)
--- NOTE | 2024-07-23 07:00 | CA_ITS ---
Transthoracic Echocardiogram Patient (Last, First, Middle): Kevin Fry R Gender: Male Date of : 1955 Age: 68 Procedure Date: 07/23/2024 Procedure Type: Transthoracic Echocardiogram Location: [facility] Height: 177.8 cm Weight: 73.48 kg BSA: 1.91 m2 Heart Rate: bpm BP: 126 / 70 mmHg Client Services Specialist: LEE ANN Referring MD: Teresa Salamanca MD Symptoms: NSTEMI Study Quality: Adequate ECG Rhythm: Bradycardia Conclusions: - The left ventricular systolic function is mildly decreased. The calculated ejection fraction is 52% by biplane method. - Suggestion of basal inferolateral hypokinesis in some views, but not clear if it is because of adjacent hypertrophy. - There is mild posterior mitral leaflet prolapse. There is mild mitral valve regurgitation. - There is moderate dilatation of the sinuses of Valsalva measuring 5.00 cm. Findings Left Ventricle Mildly increased left ventricular cavity size. There is mildly increased left ventricular wall thickness. The left ventricular systolic function is mildly decreased. The calculated ejection fraction is 52% by biplane method. Diastolic function is normal for age. There is moderate septal asymmetric hypertrophy. Suggestion of basal inferolateral hypokinesis in some views, but not clear if it is because of adjacent hypertrophy. Right Ventricle Normal right ventricular cavity size and systolic function. Aortic Valve There is a normal trileaflet aortic valve. There is no aortic valve stenosis. There is trace (trivial) aortic valve regurgitation. Mitral Valve There is mild posterior mitral leaflet prolapse. There is mild mitral valve regurgitation. There is no mitral valve stenosis. Pulmonic Valve The pulmonic valve is likely normal. Tricuspid Valve There is trace tricuspid valve regurgitation. There is no evidence of pulmonary hypertension. Great Vessels The asc aorta and aortic arch are normal in size. There is moderate dilatation of the sinuses of Valsalva measuring 5.00 cm. Venous The inferior vena cava is normal in size and collapses greater than 50% with inspiration. Pericardium/Pleural There is no evidence of pericardial effusion. Prior Study Comparison No prior study available for comparison. Measurements 2D Linear Measurements IVSd: 1.17 0.6-0.9/0.6-1.0 cm LVIDd: 5.57 3.9-5.3/4.2-5.9 cm LVIDd Index: 2.92 2.4-3.2/2.2-3.1 cm/m2 LVIDs: 3.55 2.0-3.6 cm LVPWd: 1.19 0.7-1.1 cm LA Diam: 3.00 2.7-3.8/3.0-4.0 cm LAIDs Index: 1.57 1.5-2.3 cm/m2 LV Mass: 338.90 67-162/88-224 g LV Mass Index: 177.44 43-95/49-115 g/m2 LVOT Diam: 2.50 3.0+(-)1.3 cm 2D Systolic Function EF 4C: 50.40 >55% EF 2C: 55.80 >55% EF BiP: 52.30 >55% Mitral Valve MV Pk E: 0.77 MV PK A: 0.76 MV Decel Time: 187.00 E/A: 1.00 E'Lateral: 9.68 E'Medial: 6.31 E/E' Med: 12.20 E/E' Lat: 7.90 PHT: 55.00 MVA PHT: 4.00 Decel Spencer: 4.10 Aortic Valve AoV Pk Gordon: 0.83 AoV Mn Gordon: 0.62 AoV VTI: 0.17 AoV Pk Grad: 3.00 Aov Mn Grad: 2.00 BILLY Cont.VTI: 3.83 LVOT LVOT Pk Gordon: 0.73 LVOT Mn Gordon: 0.49 LVOT VTI: 0.13 LVOT Pk Grad: 2.00 LVOT Mn Grad: 1.00 LVOT Diam: 2.50 LVOT Area: 4.91 Diastolic Function MV Pk E: 0.77 MV Pk A: 0.76 E/A: 1.00 E'Medial: 6.31 E/E' Med: 12.20 E' Laterial: 9.68 E/E' Lat: 7.90 Right Ventricle TAPSE (mm): 27.70 TVS' Gordon: 11.40 Tricuspid Valve TR Pk Gordon: 1.54 TR Pk Grad: 9.00 RA Press: 3.00 RVSP: 12.00 Great Vessels Aorta Sinus of Valsalva: 5.00 2.0-3.5 cm Ao Asc: 3.60 2.1-3.4 cm Ao Arch: 2.80 Pulmonary Valve PV Pk Gordon: 0.72 Peak PV Grad: 2.00 Updated in Other Vendor System with Status of Final Artie Reese MD electronically signed on 07/23/2024 11:49:59 AM with status of Final
[2024-07-23 07:11] VITALS: BP 114/64; PULSE 59; RESP 12; TEMP 36.4; O2SAT 98
[2024-07-23] MEDS: Docusate Sodium 100 MG CAPSULE PO (11:13)
[2024-07-23] MEDS: PHENobarbitaL 30 MG TABLET 60 MG PO ×2 (11:14→22:25)
[2024-07-23] MEDS: Aspirin 81 MG TAB.CHEW PO (11:14)
[2024-07-23] MEDS: Lacosamide 100 MG TABLET 200 MG PO ×2 (11:15→22:26)
[2024-07-23] MEDS: Lacosamide 100 MG TABLET 50 MG PO ×2 (11:15→22:27)
[2024-07-23] MEDS: Divalproex Sodium Sprinkles 125 MG CAP.DR.SPR 250 MG PO (11:15)
[2024-07-23] MEDS: LORazepam 0.5 MG TABLET PO ×2 (11:15→22:26)
[2024-07-23] MEDS: Finasteride 5 MG TABLET PO (11:16)
[2024-07-23] MEDS: Multivitamin TABLET 1 TAB PO (11:17)
[2024-07-23] MEDS: metroNIDAZOLE 0.75 % Gel 45 GM TUBE 1 APPL TOPICAL ×2 (11:23→22:28)
[2024-07-23] MEDS: Nystatin Powder 15 GM BOTTLE 1 APPL TOPICAL ×2 (11:23→22:27)
[2024-07-23] MEDS: Clotrimazole 1 % Cream 15 GM TUBE 1 APPL TOPICAL ×2 (11:23→22:27)
[2024-07-23] MEDS: 0.9 % Sodium Chloride Flush 3 ML SYRINGE IVFLUSH ×2 (11:26→22:28)
--- NOTE | 2024-07-23 11:32 | P.PNIM_ITS ---
Subjective Subjective Date of Service: 07/23/24 Interval History: no complaints Physical Exam 2 Vital Signs: Vital Signs: Last Vital Signs Temp 97.5 F 07/23/24 07:11 Pulse 59 07/23/24 07:11 Resp 12 07/23/24 07:11 BP 114/64 07/23/24 07:11 Pulse Ox 98 07/23/24 07:11 O2 Del Method Room Air 07/23/24 07:11 BMI result Body Mass Index 23.3 cvs:rrr, S1-S2 heard pulm:air netry fair , no wheezing or crackles. abd:Abdomen soft nontender, no guarding. Patient is awake, nonverbal, intermittently follows commands Psych: Normal mood No pedal edema Objective Data Active Medications Acetaminophen (Acetaminophen 325 Mg Tablet) 650 mg PO Q6H PRN PRN Reason: Pain, Mild 1-3,fever,headache Last Admin: 07/21/24 09:44 Dose: 650 mg Documented By: PERLA Aspirin (Aspirin 81 Mg Tab.Chew) 81 mg PO DAILY [facility] Last Admin: 07/23/24 11:14 Dose: 81 mg Documented By: BRITTANY Bacitracin (Bacitracin Oint 14 Gm Tube) 1 appl TOPICAL TID PRN; Protocol PRN Reason: minor cuts, scrapes, abrasions Calcium Carbonate (Calcium Carbonate 750 Mg Tab.Chew) 750 mg PO Q4H PRN PRN Reason: Heartburn Clonazepam (Clonazepam 0.5 Mg Tablet) 0.5 mg PO BID PRN PRN Reason: seizure disorder Clotrimazole (Clotrimazole 1 % Cream 15 Gm Tube) 1 appl TOPICAL BID [facility] Last Admin: 07/23/24 11:23 Dose: 1 appl Documented By: BRITTANY Divalproex Sodium (Divalproex Sodium Sprinkles 125 Mg Spr) 250 mg PO DAILY [facility] Last Admin: 07/23/24 11:15 Dose: 250 mg Documented By: BRITTANY Divalproex Sodium (Divalproex Sodium Sprinkles 125 Mg Spr) 500 mg PO BEDTIME [facility] Last Admin: 07/22/24 20:43 Dose: 500 mg Documented By: CASSY Docusate Sodium (Docusate Sodium 100 Mg Capsule) 100 mg PO DAILY [facility] Last Admin: 07/23/24 11:13 Dose: 100 mg Documented By: BRITTANY Enoxaparin Sodium (Enoxaparin Sodium 80 Mg/0.8 Ml Syringe) 70 mg SUBCUT Q12H [facility] Last Admin: 07/22/24 23:34 Dose: 70 mg Documented By: CASSY Finasteride (Finasteride 5 Mg Tablet) 5 mg PO DAILY [facility] Last Admin: 07/23/24 11:16 Dose: 5 mg Documented By: BRITTANY Lacosamide (Lacosamide 100 Mg Tablet) 50 mg PO BID [facility] Last Admin: 07/23/24 11:15 Dose: 50 mg Documented By: BRITTANY Lacosamide (Lacosamide 100 Mg Tablet) 200 mg PO BID [facility] Last Admin: 07/23/24 11:15 Dose: 200 mg Documented By: BRITTANY Lorazepam (Lorazepam 0.5 Mg Tablet) 0.5 mg PO BID [facility] Last Admin: 07/23/24 11:15 Dose: 0.5 mg Documented By: BRITTANY Magnesium Hydroxide (Milk Of Magnesia 30 Ml Oral.Susp) 30 ml PO DAILY PRN PRN Reason: Constipation Melatonin (Melatonin 3 Mg Tablet) 6 mg PO BEDTIME PRN PRN Reason: Insomnia Metoprolol Succinate (Metoprolol Succinate Er 12.5 Mg Halftab.Er.24h) 12.5 mg PO DAILY [facility]; Protocol Last Admin: 07/20/24 10:08 Dose: 12.5 mg Documented By: PERLA Metronidazole (Metronidazole 0.75 % Gel 45 Gm Tube) 1 appl TOPICAL BID [facility] Last Admin: 07/23/24 11:23 Dose: 1 appl Documented By: BRITTANY Multivitamins/Vitamin C (Multivitamin Tablet) 1 tab PO DAILY [facility] Last Admin: 07/23/24 11:17 Dose: 1 tab Documented By: BRITTANY Nystatin (Nystatin Powder 15 Gm Bottle) 1 appl TOPICAL BID [facility]; Protocol Last Admin: 07/23/24 11:23 Dose: 1 appl Documented By: BRITTANY Omeprazole (Omeprazole 20 Mg Capsule.) 20 mg PO DAILY@0630 [facility] Last Admin: 07/23/24 05:46 Dose: 20 mg Documented By: CASSY Ondansetron HCl (Ondansetron Hcl 4 Mg/2 Ml Vial) 4 mg IVPUSH Q8H PRN PRN Reason: Nausea and Vomiting Phenobarbital (Phenobarbital 30 Mg Tablet) 60 mg PO BID [facility] Last Admin: 07/23/24 11:14 Dose: 60 mg Documented By: BRITTANY Sodium Chloride (0.9 % Sodium Chloride Flush 3 Ml Syringe) 3 ml IVFLUSH QSHIFT [facility] Last Admin: 07/23/24 11:26 Dose: 3 ml Documented By: BRITTANY Tamsulosin HCl (Tamsulosin Hcl 0.4 Mg Capsule) 0.8 mg PO BEDTIME [facility] Last Admin: 07/22/24 20:43 Dose: 0.8 mg Documented By: PETERR Labs 07/21/24 07:08 07/21/24 07:08 Assessment and Plan (1) NSTEMI (non-ST elevated myocardial infarction): Status: Acute Assessment and Plan: 68M PMH seizure disorder, moderate intellectual disability nonverbal at baseline, mood disorder, mitral regurgitation, moderate dysphagia, urinary incontinence was sent to the emergency department for evaluation of chest pain. NSTEMI: continue cardiac monitoring. continue asa s/p lovenox (48hrs ) follow up echo cardiology following Seizure disorder/ Mood disorder Continue Vimpat, Depakote, Ativan, phenobarbital Urinary incontinence On Flomax and Proscar Dysphagia pureed, nectar thick DVT prophylaxis: lovenox full code reason for continued hospitalization:awaiting echo Quality Stroke Does the patient have a stroke diagnosis?: No VTE Prior VTE?: No VTE Risk Level:: Medical - moderate - high VTE Device Contraindication: Treatment Not Indicated VTE Drug Contraindication: N/A - Med Ordered
[2024-07-23 11:44] VITALS: BP 96/69; PULSE 60; RESP 14; TEMP 36.1; O2SAT 95
--- NOTE | 2024-07-23 13:39 | PM.DS ---
DS: Providers Provider Date of Service: 07/23/24 Date of admission: 07/20/24 04:27 Date of discharge: 07/23/24 Primary care physician: Bimal Hampton III, MD Consults: 07/20/24 04:28 Consult to Cardiology Routine Consulting Provider: [facility] Reason for consultation: NSTEMI 07/20/24 09:46 Consult to Wound Care Routine Reason for consultation: groin- fungal rash DS: Diagnosis Discharge Diagnosis (1) NSTEMI (non-ST elevated myocardial infarction): Status: Acute DS: Summary Hospital Course Hospital Course: from initial hpi: 68-year-old male with pertinent history of seizure disorder, moderate intellectual disability nonverbal at baseline, mood disorder, mitral regurgitation, moderate dysphagia, urinary incontinence who was sent to the emergency department for evaluation of chest pain. Unable to obtain history or review of systems home the patient as he is nonverbal. History obtained from chart review and ER provider. [facility] staff reported that patient woke up from nap complaining of chest pain, holding his chest. He was diaphoretic when this happened and his heart rate was elevated. No known history of coronary artery disease in the past. Stable vital signs in the ER. Troponin found to be elevated. Patient was initiated on IV heparin and admitted to hospital medicine team. hospital course: Patient was admitted for non ST-elevation DC was seen by Cardiology recommended 48 hours of therapeutic Lovenox, aspirin, statin, echocardiogram showed questionable inferior lateral wall motion abnormality and dilated aorta recommended radiation was to follow up outpatient for CT angio chest. For seizure disorder was continued on Vimpat, Depakote, Ativan, phenobarbital. For dysphagia continued on. Solids with nectar thick liquids. Patient's chest pain has resolved and will be discharged to shelter. Time Attestation Discharge Coordination Time (in mins): 37 Quality: Safe Use of Opioids Does Pt have an Active Cancer Diagnosis on the Problem List?: No Quality: Stroke Does the patient have a stroke diagnosis?: No Physical Exam Vital Signs: Vital Signs: Last Vital Signs Temp 96.9 F 07/23/24 11:44 Pulse 60 07/23/24 11:44 Resp 14 07/23/24 11:44 BP 96/69 07/23/24 11:44 Pulse Ox 95 07/23/24 11:44 O2 Del Method Room Air 07/23/24 11:44 BMI result Body Mass Index 23.3 cvs:rrr, S1-S2 heard pulm:air netry fair , no wheezing or crackles. abd:Abdomen soft nontender, no guarding. Patient is awake, nonverbal, intermittently follows commands Psych: Normal mood No pedal edema Discharge Plan Discharge Anticipated Discharge Date/Time: 07/23/24 13:31 Patient Disposition: Xfer Other Discharge Diagnosis: nstemi Referrals: Bimal Hampton III, MD [Primary Care Provider] - 1 Week Discharge Medications: New atorvastatin 40 mg tablet 40 mg PO BEDTIME Qty: 90 0RF Continued metronidazole 0.75 % cream 1 appl topical DAILY multivitamin Tablet 1 tab PO DAILY acetaminophen [Tylenol] 325 mg Tablet 650 mg PO Q6H PRN (Reason: Pain) bacitracin 500 unit/gram Ointment 1 appl TOPICAL TID PRN (Reason: minor cuts, scrapes, abrasions) aspirin 81 mg Tablet,Delayed Release (Dr/Ec) 81 mg PO DAILY docusate sodium 100 mg Capsule 100 mg PO DAILY divalproex 125 mg capsule, delayed rel sprinkle 500 mg PO BEDTIME ciclopirox 0.77 % cream 1 appl topical BID tamsulosin 0.4 mg capsule 0.8 mg PO BEDTIME finasteride 5 mg tablet 5 mg PO DAILY divalproex 125 mg capsule, delayed rel sprinkle 250 mg PO DAILY phenobarbital 60 mg tablet 60 mg PO BID metoprolol succinate 25 mg tablet extended release 24 hr 12.5 mg PO DAILY lacosamide 200 mg tablet 200 mg PO BID Rx Instructions: w/ 50 BID lacosamide 50 mg tablet 50 mg PO BID Rx Instructions: w/ 200 BID lorazepam 0.5 mg tablet 0.5 mg PO BID clonazepam 0.5 mg tablet,disintegrating 0.5 mg PO BID PRN (Reason: seizure disorder) nystatin 100,000 unit/gram powder 1 appl topical DAILY Discharge Orders: Discharge Order (Routine); Ordered 07/23/24 Ordered By: Anuj Barboza Diet: pureed, nectar thick Activity on Discharge: As tolerated Stand Alone Forms: Patient Portal Discharge page Print Language: Turkmen Other Ambulatory Orders: CT angio chest aorta (Routine) Timeframe: 1 Week Facility: [facility] - Location: CT Scan Ordered By: Anuj Barboza Care Plan Goals: manage cad Health Concerns: cad, aortic aneurysm Plan of Treatment: follow up cardio, added statin, follow up ct angio Assessment: see above
[2024-07-23] MEDS: Enoxaparin Sodium 40 MG/0.4 ML SYRINGE SUBCUT (14:12)
--- NOTE | 2024-07-23 14:27 | MHC.CM.PN ---
Addendum entered by [facility] 07/24/24 10:41: Second IMM given 07/23. Addendum entered by [facility] 07/23/24 16:21: This CM received a call from Manuel after she received the discharge summary, she didn't realize there was anew medication, so now cannot accept the pt tonight. Will have to plan for him to discharge back to the [facility] tomorrow. Hospitalist updated. Addendum entered by [facility] 07/23/24 16:16: This CM received a call from Manuel, she stated the pt can discharge this evening. This CM advised that the ambulances are booking past 7pm, Manuel stated that was ok. Addendum entered by [facility] 07/23/24 15:00: This CM received a return call from MaryG race from [facility] and the fractionation supervisor Manuel from [facility], they state the pt has to return to the [facility] prior to 2pm. They will review his medications and have a [facility] order sheet sent to us tomorrow to be signed by the MD prior to pts discharge. Hospitalist updated. Original Note: EMR reviewed and per MD rounds, pt is medically cleared for discharge to return to the [facility]. This CM placed a call to pts jessica Fortune, message left awaiting return call, This CM placed call the learning and development manager Mary Grace, she advised this CM to contact [facility] nurse Mary Grace at [phone], call placed to [facility] nurse Mary Grace, message left, awaiting return call.
[2024-07-23 15:16] VITALS: BP 107/76; PULSE 76; RESP 16; TEMP 36.6; O2SAT 97
[2024-07-23 19:48] VITALS: BP 117/66; PULSE 73; RESP 16; TEMP 36.1; O2SAT 96
[2024-07-23] MEDS: Divalproex Sodium Sprinkles 125 MG CAP.DR.SPR 500 MG PO (22:25)
[2024-07-23] MEDS: Tamsulosin HCL 0.4 MG CAPSULE 0.8 MG PO (22:26)
[2024-07-23 23:46] VITALS: BP 122/64; PULSE 76; RESP 16; TEMP 36.3; O2SAT 94
[2024-07-24 03:19] VITALS: BP 118/70; PULSE 63; RESP 16; TEMP 36.5; O2SAT 96
[2024-07-24] MEDS: Omeprazole 20 MG CAPSULE.DR PO (06:00)
[2024-07-24 07:21] VITALS: BP 104/72; PULSE 60; RESP 18; TEMP 36.4; O2SAT 97
[2024-07-24] MEDS: Lacosamide 100 MG TABLET 200 MG PO (09:20)
[2024-07-24] MEDS: Divalproex Sodium Sprinkles 125 MG CAP.DR.SPR 250 MG PO (09:20)
[2024-07-24] MEDS: Aspirin 81 MG TAB.CHEW PO (09:20)
[2024-07-24] MEDS: Multivitamin TABLET 1 TAB PO (09:21)
[2024-07-24] MEDS: Lacosamide 100 MG TABLET 50 MG PO (09:21)
[2024-07-24] MEDS: LORazepam 0.5 MG TABLET PO (09:21)
[2024-07-24] MEDS: Docusate Sodium 100 MG CAPSULE PO (09:21)
[2024-07-24] MEDS: PHENobarbitaL 30 MG TABLET 60 MG PO (09:21)
[2024-07-24] MEDS: Finasteride 5 MG TABLET PO (09:21)
[2024-07-24] MEDS: Clotrimazole 1 % Cream 15 GM TUBE 1 APPL TOPICAL (09:30)
[2024-07-24] MEDS: Nystatin Powder 15 GM BOTTLE 1 APPL TOPICAL (09:30)
[2024-07-24] MEDS: metroNIDAZOLE 0.75 % Gel 45 GM TUBE 1 APPL TOPICAL (09:30)
[2024-07-24] MEDS: 0.9 % Sodium Chloride Flush 3 ML SYRINGE IVFLUSH (09:30)
--- NOTE | 2024-07-24 11:51 | MHC.CM.PN ---
Pt is medically cleared for discharge home to the retirement today, retirement orders signed by and approved by retirement/[facility] nurse Mary Grace, pt will transport back to the retirement today via [facility].
[2024-07-24 12:00] VITALS: BP 120/67; PULSE 95; RESP 18; TEMP 36.2
--- NOTE | 2024-07-24 14:23 | MHC.SLORD ---
Speech Language Pathology Order Status: GRADER [employer]AT contacted pt director to review diet at time of d/c from [facility], director verbalized understanding of diet downgrade while pt here and will follow up with pt PCP to obtain consult for dysphagia if needed.
== END 2024-07-24 13:50 | disposition other institution (70) | DRG 282 ==
LOC: HO.ED 07-20 01:29 → HO.EDOVER 07-20 04:29 → HO.IMC 07-20 07:40
PROVIDERS: Internal Medicine; Admitting Provider Student in an Organized Health Care Education/Training Program; Emergency Provider Internal Medicine; PCP Internal Medicine; Visit Provider Internal Medicine
DX: I21.4 Non-ST elevation (NSTEMI) myocardial infarction (principal); F71 Moderate intellectual disabilities; I44.7 Left bundle-branch block, unspecified; R33.9 Retention of urine, unspecified; F41.9 Anxiety disorder, unspecified; G40.909 Epilepsy, unspecified, not intractable, without status epilepticus; R13.10 Dysphagia, unspecified; Z79.82 Long term (current) use of aspirin; Z79.899 Other long term (current) drug therapy
CPT/HCPCS: 36415; 80048; 80053; 80061; 84443; 84484; 85025; 85027; 85610; 85730; 92610; 93005; 93306; 99285; J1644; J1650; Q9957

== ENCOUNTER → 2024-07-19 23:52 | Outpatient (BNV) | payer MEDICARE, MEDICAID, SELFPAY | PROVIDERS: Admitting Provider Student in an Organized Health Care Education/Training Program; Emergency Provider Internal Medicine; PCP Internal Medicine; Visit Provider Internal Medicine Cardiovascular Disease | DX: I44.0 Atrioventricular block, first degree (principal); I44.7 Left bundle-branch block, unspecified | CPT/HCPCS: 93010 ==

== ENCOUNTER 2024-07-20 04:27 | Outpatient (BNV) | payer MEDICARE, MEDICAID, SELFPAY | END 2024-07-23 07:00 | PROVIDERS: Admitting Provider Student in an Organized Health Care Education/Training Program; Emergency Provider Internal Medicine; PCP Internal Medicine; Visit Provider Internal Medicine | DX: I42.2 Other hypertrophic cardiomyopathy (principal); I34.1 Nonrheumatic mitral (valve) prolapse; I34.0 Nonrheumatic mitral (valve) insufficiency | CPT/HCPCS: 93306 ==

== ENCOUNTER → 2024-07-20 04:27 | Outpatient (BNV) | payer MEDICARE, MEDICAID, SELFPAY | PROVIDERS: Admitting Provider Student in an Organized Health Care Education/Training Program; Emergency Provider Internal Medicine; PCP Internal Medicine; Visit Provider Internal Medicine Cardiovascular Disease | DX: I21.4 Non-ST elevation (NSTEMI) myocardial infarction (principal) | CPT/HCPCS: 99223; 99232 ==

== ENCOUNTER → 2024-07-20 04:27 | Outpatient (BNV) | payer MEDICARE, MEDICAID, SELFPAY | PROVIDERS: Admitting Provider Student in an Organized Health Care Education/Training Program; Emergency Provider Internal Medicine; PCP Internal Medicine; Visit Provider Student in an Organized Health Care Education/Training Program | DX: I21.4 Non-ST elevation (NSTEMI) myocardial infarction (principal) | CPT/HCPCS: 99222; 99231; 99232; 99239; 99499 ==

== ENCOUNTER 2024-09-09 08:51 | Observation (INO) | payer MEDICARE, MEDICAID, SELFPAY ==
--- NOTE | ~2024-09-09 | CT_ITS ---
EXAMINATION: CT ANGIOGRAM CHEST CLINICAL INFORMATION: Chest pain. Rule out PE. COMPARISON: None available. TECHNIQUE: Multiple axial images were obtained through the chest after the administration of 65 mL of Omnipaque 350 intravenous contrast. Extensive vascular post-processing including two-dimensional and three-dimensional reformatted images were created and reviewed on an independent workstation. This CT examination was performed using dose optimization techniques as appropriate, variously including the following: *Automated exposure control *Adjustment of mA and/or kV according to patient size (this includes techniques or standardized protocols for targeted exams where dose is matched to indication/reason for exam; i.e. extremities or head) *Use of iterative reconstruction technique FINDINGS: VASCULAR: Study is limited by respiratory motion within the lower lungs, resulting in motion blurring. Bolus quality is adequate. No definite pulmonary embolus identified within the confines of respiratory motion. Mildly prominent main pulmonary artery. Aorta is ectatic and uncoiled, without evidence of acute aortic syndrome. There is dilatation of the aortic root, measuring up to 5.1 cm. There is cardiac enlargement, without evidence of right heart strain. No evidence of reflux of contrast into the IVC. LUNGS: Limited evaluation of the lower lobes due to respiratory motion artifact. There appears to be groundglass attenuation in the right lower lobe greater than left lower lobe with subpleural opacities, suspicious for pneumonitis. The upper lungs are well pneumatized. Small airways are normal in appearance. The central airways are patent. There is no pneumothorax or pleural effusion. Evaluation for nodules limited by respiratory motion. MEDIASTINUM: Normal thyroid. No adenopathy or mass. No pericardial effusion. The esophagus is unremarkable. AXILLA/CHEST WALL: No mass or lymphadenopathy. IMAGED UPPER ABDOMINAL CONTENTS: Gallbladder distention without definite wall thickening or inflammation. There is a 7.4 cm cyst arising from the superior pole of the left kidney. Remainder the imaged upper abdominal contents are unremarkable in appearance. OSSEOUS STRUCTURES: No suspicious lytic or blastic bone lesion. There are moderate spinal degenerative changes with exaggerated kyphosis. There are features suggesting DISH. CT/CT angio chest PE protocol IMPRESSION: 1. Negative examination for pulmonary embolus. Exam limited by respiratory motion in the lower lobes especially. 2. No evidence of acute aortic syndrome. There is prominence of the aortic root measuring up to 5.1 cm. There is no definite aortic aneurysm. 3. Moderate cardiomegaly. 4. Bilateral lower lobe subpleural reticular and alveolar groundglass opacities, poorly evaluated due to motion although could represent bibasilar pneumonia in the appropriate clinical setting. 5. There is no effusion. Electronically signed by: Sukh Garcia MD 09/09/2024 04:36 PM EDT RP
[2024-09-09 09:11] VITALS: BP 126/74; BP 137/77; PULSE 72; PULSE 86; RESP 16; TEMP 36.6; O2SAT 98; O2SAT 99; BMI 23.3
--- NOTE | 2024-09-09 09:35 | ECG_ITS ---
Test Reason : CHEST PAIN Blood Pressure : */* mmHG Vent. Rate : 65 BPM Atrial Rate : 65 BPM P-R Int : 308 ms QRS Dur : 136 ms QT Int : 402 ms P-R-T Axes : 66 -27 75 degrees QTcB Int : 418 ms Sinus rhythm with 1st degree A-V block Left bundle branch block Abnormal ECG When compared with ECG of 19-Jul-2024 23:55, No significant change was found Referred By: Generic ED Physician Electronically Signed By: DESIRAE MCCLAIN
--- NOTE | 2024-09-09 09:54 | ED.GENADULT ---
HPI - General Adult General Chief complaint: General Medical Stated complaint: TREMORS Time Seen by Provider: 09/09/24 09:54 History of Present Illness ED Provider: Dwayne GUAJARDO narrative: The patient is a 68-year-old male with a history of multiple chronic behavioral and intellectual disabilities who lives at a senior care. A month and a half ago the patient was briefly hospitalized for a possible mild NSTEMI. His evaluation was complicated by his nonverbal status. He was discharged on atorvastatin has a new medication. According to the staff member who was with him the patient did not seem himself this morning. He had unusual tremors and may has been trying to indicate he was having chest discomfort. They therefore decided to bring him to the emergency room. He was brought here by ambulance. He has a history of a seizure disorder. No seizure this morning. The staff member says that he had a fall several days ago last week in which he struck the right side of his head. His behavior has otherwise been normal aside from the episode of abnormal behavior this morning. The staff member at the bedside says the patient's current demeanor and behavior is typical of his usual behavior. The patient is nonverbal and unable to contribute to history. Related Data Home Medications ?Medication ?Instructions ?Recorded ?Confirmed clonazepam 0.5 mg disintegrating 0.5 mg PO BID PRN seizure disorder 01/25/23 07/20/24 tablet divalproex 125 mg capsule,delayed 250 mg PO DAILY 01/25/23 07/20/24 release sprinkle finasteride 5 mg tablet 5 mg PO DAILY 01/25/23 07/20/24 lacosamide 200 mg tablet 200 mg PO BID 01/25/23 07/20/24 lacosamide 50 mg tablet 50 mg PO BID 01/25/23 07/20/24 lorazepam 0.5 mg tablet 0.5 mg PO BID Anxiety 01/25/23 07/20/24 metoprolol succinate 25 mg 12.5 mg PO DAILY 01/25/23 07/20/24 tablet,extended release 24 hr nystatin 100,000 unit/gram topical 1 appl topical DAILY 01/25/23 07/20/24 powder phenobarbital 60 mg tablet 60 mg PO BID 01/25/23 07/20/24 tamsulosin 0.4 mg capsule 0.8 mg PO BEDTIME 01/25/23 07/20/24 acetaminophen 325 mg tablet 650 mg PO Q6H PRN Pain 07/20/24 07/20/24 (Tylenol) aspirin 81 mg tablet,delayed 81 mg PO DAILY 07/20/24 07/20/24 release bacitracin 500 unit/gram topical 1 appl topical TID PRN minor cuts, 07/20/24 07/20/24 ointment scrapes, abrasions ciclopirox 0.77 % topical cream 1 appl topical BID 07/20/24 07/20/24 divalproex 125 mg capsule,delayed 500 mg PO BEDTIME 07/20/24 07/20/24 release sprinkle docusate sodium 100 mg capsule 100 mg PO DAILY 07/20/24 07/20/24 metronidazole 0.75 % topical cream 1 appl topical DAILY 07/20/24 07/20/24 multivitamin 1 tab PO DAILY 07/20/24 07/20/24 Previous Rx's ?Medication ?Instructions ?Recorded atorvastatin 40 mg tablet 40 mg PO BEDTIME #90 tabs 07/23/24 Allergies Allergy/AdvReac Type Severity Reaction Status Date / Time No Known Allergies (No Known Allergy Verified 09/09/24 09:13 Allergies*) Review of Systems Review of Systems: Yes Unobtainable due to mental status PMFSH Past Medical History Medical History (Updated 09/09/24 @ 17:47 by Riccardo Rice MD) Rosacea Vitamin D deficiency Dysphagia Mitral regurgitation Seizure disorder Intellectual disability Anxiety Social History Social History Household Members: Caregiver Housing: Other Housing Other:: senior care Do you presently have visiting nurse or other home services: Yes Unable to assess alcohol history related to: Unable to respond Patient Tobacco Use Status: Never used Tobacco Advance Directives: Yes Advance Directives on File: Yes Advance Directives Date on File: 07/20/24 Do you have a plan to hurt others: No Plan service: No Physical Exam ED Vital Signs: Vital Signs - 24 hr 09/09/24 09:11 09/09/24 11:57 09/09/24 13:55 Temperature 97.9 F 98.2 F 97.3 F Pulse Rate 72 64 63 Respiratory Rate 16 20 19 Blood Pressure 137/77 116/73 122/76 Pulse Oximetry 99 98 98 Oxygen Delivery Method Room Air Room Air Room Air BMI result Body Mass Index 23.3 Const Other: The patient is a chronically ill appearing 68-year-old male. He is awake and seems fairly alert although he tends to keep his eyes closed and he is nonverbal. He follows simple commands. He does not seem in distress. HENMT Other: The face is symmetrical. ?Mucous membranes moist. Eyes General: appearance normal, both eyes and all related structures Neck Neck: Yes no JVD Resp Effort & Inspection: normal respiratory effort Auscultation: clear to auscultation bilaterally Cardio Other: The patient has a loud holosystolic murmur. He has a regular rate and rhythm. GI Other: Abdomen is soft and seems nontender. Skin Other: Skin is pale and dry Neuro Other: The patient is sitting up in the stretcher with a his eyes closed. He is nonverbal. He seems to follow simple commands. He has no obvious lateralizing findings. I believe he is at his neurological baseline Extrem Other: No peripheral edema, good pulses in the feet, no calf swelling or tenderness Medications Administered Discontinued Medications Generic Name Dose Route Start Last Admin Trade Name Liz PRN Reason Stop Dose Admin Aspirin 324 mg 09/09/24 13:38 09/09/24 13:53 Aspirin 81 Mg Tab.Chew PO 09/09/24 13:39 324 mg ONCE ONE Administration Diazepam 5 mg 09/09/24 14:19 09/09/24 15:13 Diazepam 10 Mg/2 Ml Cartridge IVPUSH 09/09/24 14:20 5 mg STAT STA Administration Iohexol 100 ml 09/09/24 16:26 09/09/24 16:26 Iohexol 350 Mg/Ml 100 Ml Infus..Btl IV 09/09/24 16:27 65 ml ONCE ONE Administration Medical Decision Making Medical Decision Making [facility] Narrative: The patient is a 68-year-old male. He has a history of intellectual disability and does not speak. He has a history of a seizure disorder as well. He lives at a senior care. The patient was hospitalized 6 weeks ago for possible indications of chest discomfort. He had some mildly elevated troponins and was hospitalized briefly with a question of an NSTEMI. He had an echocardiogram with some ambiguous findings. He was ultimately discharged on atorvastatin as a new medication. Subsequent to discharge as an outpatient the patient followed up with [facility]. They apparently made plans for the patient to have an echocardiogram, a stress test, and an outpatient CTA of the chest. These have not been done. This morning the patient may have had symptoms possibly indicating chest discomfort again. He was then brought to the hospital for re-evaluation. His EKG today again shows a left bundle branch block. No significant change from previous. Clinically the patient was not looking uncomfortable on arrival. His troponin testing has shown an initial troponin of 101.5 with a repeat troponin of 96.7. Additionally we did a CT pulmonary angiogram that shows no evidence of pulmonary emboli or an acute aortic syndrome. The patient was given aspirin in the emergency room. At one point in the emergency department the patient seemed slightly more restless and uncomfortable than he did initially. He was given a dose of diazepam with improvement in his restlessness. The staff member who was with him, who was also the factory supervisor of the senior care, says that the patient has an appointed guardian who is the decision maker. The group home manager is concerned that the patient's episode this morning and that the 2nd brief episode of possible discomfort in the emergency room today were significant enough that the patient should not returned to the senior care. The patient will therefore be admitted for further evaluation. I discussed the case with Dr. Reese of Cardiology. The patient has been given aspirin. He will also be given enoxaparin. He will be hospitalized for further monitoring and consideration of whether additional testing is indicated. Lab Data 09/09/24 10:18 09/09/24 10:18 Labs: Lab Results 09/09/24 09/09/24 09/09/24 Range/Units 10:17 10:18 10:20 WBC 6.2 (4.8-10.8) X10*3/uL RBC 4.51 L (4.60-5.80) X10*6/uL Hgb 14.8 (14.0-18.0) g/dl Hct 43.8 (42.0-52.0) % MCV 97.1 (80.0-98.0) fL MCH 32.8 (27.0-33.0) pg MCHC 33.8 (31.0-36.0) g/dl RDW 13.4 (11.0-16.0) % Plt Count 244 (160-400) X10*3/uL MPV 8.9 L (9.4-12.4) fL Immature Gran % (Auto) 0.3 (0.0-0.4) % Neut % (Auto) 66.8 (45-73) % Lymph % (Auto) 23.0 (20-40) % [place] % (Auto) 6.8 (2-11) % Eos % (Auto) 2.3 (0-4) % Baso % (Auto) 0.8 (0-2) % Lymph # (Auto) 1.4 (1.2-4.9) X10*3/uL [place] # (Auto) 0.4 (0.1-1.2) X10*3/uL Eos # (Auto) 0.1 (0.0-0.4) X10*3/uL Baso # (Auto) 0.1 (0.0-0.2) X10*3/uL Abs Immat Gran (auto) 0.02 (0.00-0.03) X10*3/uL Absolute Neuts (auto) 4.2 (2.0-8.3) x10*3/uL Absolute Nucleated RBC 0.000 (0.0-0.012) X10*3/uL Nucleated RBC % (auto) 0.0 (0.0-0.2) /100WBC Sodium 142 (135-145) mmol/L Potassium 4.1 (3.3-5.1) mmol/L Chloride 107 (96-108) mmol/L Carbon Dioxide 29 (22-29) mmol/L Anion Gap 10 L (12-20) BUN 15 (9-16) mg/dL Creatinine 0.65 (0.5-1.4) mg/dL Estim Creat Clear Calc 110.2 Estimated GFR > 60 Random Glucose 90 (60-115) mg/dL Calcium 8.9 (8.4-10.2) mg/dL Troponin I High Sens 101.5 H* (<3.5-35.0) ng/L C-Reactive Protein 0.68 H (< or = 0.50) mg/dL Hold Red Top See Note Valproic Acid 24.3 L (50.0-100.0) mcg/mL 09/09/24 Range/Units 12:40 WBC (4.8-10.8) X10*3/uL RBC (4.60-5.80) X10*6/uL Hgb (14.0-18.0) g/dl Hct (42.0-52.0) % MCV (80.0-98.0) fL MCH (27.0-33.0) pg MCHC (31.0-36.0) g/dl RDW (11.0-16.0) % Plt Count (160-400) X10*3/uL MPV (9.4-12.4) fL Immature Gran % (Auto) (0.0-0.4) % Neut % (Auto) (45-73) % Lymph % (Auto) (20-40) % [place] % (Auto) (2-11) % Eos % (Auto) (0-4) % Baso % (Auto) (0-2) % Lymph # (Auto) (1.2-4.9) X10*3/uL [place] # (Auto) (0.1-1.2) X10*3/uL Eos # (Auto) (0.0-0.4) X10*3/uL Baso # (Auto) (0.0-0.2) X10*3/uL Abs Immat Gran (auto) (0.00-0.03) X10*3/uL Absolute Neuts (auto) (2.0-8.3) x10*3/uL Absolute Nucleated RBC (0.0-0.012) X10*3/uL Nucleated RBC % (auto) (0.0-0.2) /100WBC Sodium (135-145) mmol/L Potassium (3.3-5.1) mmol/L Chloride (96-108) mmol/L Carbon Dioxide (22-29) mmol/L Anion Gap (12-20) BUN (9-16) mg/dL Creatinine (0.5-1.4) mg/dL Estim Creat Clear Calc Estimated GFR Random Glucose (60-115) mg/dL Calcium (8.4-10.2) mg/dL Troponin I High Sens 96.7 H (<3.5-35.0) ng/L C-Reactive Protein (< or = 0.50) mg/dL Hold Red Top Valproic Acid (50.0-100.0) mcg/mL Independent Interpretation I performed an independent interpretation of an: EKG Interpretation: EKG at 09:50 shows sinus rhythm with a first-degree AV block at 65 beats per minute. There is a left bundle branch block. This is an old left bundle branch block. No significant change from previous EKGs. Critical Care Time Critical Care Time Critical Care Time: Yes Total Critical Care Time: 35 Attestation: The patient was critically ill with a high probability of imminent or life-threatening deterioration. ?I spent greater than 30 minutes of discontinuous time evaluating the patient, delivering critical care at the bedside, discussing evaluating data with consultants. ?Critical care time does not include time spent performing separately billable procedures or teaching. ?Time spent performing critical care with 35 minutes. Discharge Plan Discharge Patient Disposition: Admitted As Inpatient Print Language: Turkish
[2024-09-09 10:24] LABS: MANUAL DIFF FLAG NO
[2024-09-09 10:31] LABS: Basophils Absolute Auto 0.1 X10*3/uL (0.0-0.2); Basophils Percent Auto 0.8 % (0-2); Eosinophils Absolute Auto 0.1 X10*3/uL (0.0-0.4); Eosinophils Percent Auto 2.3 % (0-4); Hematocrit 43.8 % (42.0-52.0); Hemoglobin 14.8 g/dl (14.0-18.0); Imm Gran Abs Auto 0.02 X10*3/uL (0.00-0.03); Imm Gran Pct Auto 0.3 % (0.0-0.4); Lymphocytes Absolute Auto 1.4 X10*3/uL (1.2-4.9); Mean Corpuscular HGB Conc 33.8 g/dl (31.0-36.0); Mean Corpuscular Hemoglobin 32.8 pg (27.0-33.0); Mean Corpuscular Volume 97.1 fL (80.0-98.0); Mean Platelet Volume 8.9 fL (9.4-12.4); Monocytes Absolute Auto 0.4 X10*3/uL (0.1-1.2); Monocytes Percent Auto 6.8 % (2-11); Neutrophils Absolute Auto 4.2 x10*3/uL (2.0-8.3); Neutrophils Percent Auto 66.8 % (45-73); Platelet Count 244 X10*3/uL (160-400); Red Blood Count 4.51 X10*6/uL (4.60-5.80); Red Cell Distribution Width 13.4 % (11.0-16.0); White Blood Count 6.2 X10*3/uL (4.8-10.8)
[2024-09-09 10:39] LABS: C Reactive Protein 0.68 mg/dL (< or = 0.50)
[2024-09-09 10:44] LABS: Valproate 24.3 mcg/mL (50.0-100.0)
[2024-09-09 10:48] LABS: Anion Gap 10 (12-20); Blood Urea Nitrogen 15 mg/dL (9-16); Calcium 8.9 mg/dL (8.4-10.2); Carbon Dioxide 29 mmol/L (22-29); Chloride 107 mmol/L (96-108); Creatinine Clr Calc Pharmacy 110.2; Estimated Glomerular Filt Rate > 60; Glucose Random 90 mg/dL (60-115); Potassium 4.1 mmol/L (3.3-5.1); Sodium 142 mmol/L (135-145)
[2024-09-09 10:50] LABS: Troponin-I High Sensitivity 101.5 ng/L (<3.5-35.0)
--- NOTE | 2024-09-09 10:55 | PC.NURSE ---
patient awake/alert but nonverbal, pt will answer yes/no questions at times by shaking his head. ekg performed, labs obtained, dope pourer intact nsr on monitor, staff at bedside, call hagen within reach, plan of care ongoing
--- OUTSIDE RECORDS SUMMARY | 2024-09-09 11:05 | XMS_ITS | Data Portability ---
Author Organization [place] - [facility], Allergy Address [address] [place] [address] Care Team Providers Care Push Button Switch Assembler Name Role Phone NOELLE QUESADA Primary Care Provider Assessment Encounter Date Assessment Date Assessment LastModified by Organization Details LastModified Time 01/25/2024 01/25/2024 68 year old nonverbal male presents to the office from alf for routine six month ear cleaning. Ears were meticulously cleaned bilaterally today with suction. Patient will follow up in six month for repeat ear cleaning. [email or web address] Not available 01/25/2024 12:10:40 Plan of Treatment Reminders Order Date Submit Date Provider Last Modified By Organization Details Last Modified Time Details Appointments Establish ed 15 2024 10:15A M KARLIE WILLIAM PA-C Not available Not available Not available Lab None recorded. Referral None recorded. Procedures None recorded. Surgeries None recorded. Imaging None recorded. Medication Orders None recorded. Patient TargetsNo targets recorded. Patient InstructionsNo instructions recorded. Reason for Referral None Reported. Problems Name Problem SNOMED Code Status Onset Date Resolution Date Notes Provider Name and Address Organization Details Recorded Time Impacted cerumen of bilateral ears [id number] [id number] Active 2022 Impacted cerumen, bilateral ; Note: Date Diagnosed : 11/14/2022 3:48 PM (H61.23) Not Available [facility] 4 03:25:14 Problem Notes None recorded. Procedures Surgical History Date Name Laterality Status Provider Name and Address Organization Details Recorded Time Cerumen removal without microscope bilat completed KARLIE WILLIAM PA-C [address] [facility] [address], [place], [address], [facility] - [facility] 01/25/2024 12:10:05 Imaging Results None recorded. Procedure Notes None recorded. Medical Equipment None Reported. Allergies No known drug allergies Medications Name Sig Start Date Stop Date Status Note LastModified by Organization Details LastModified Time clorazepa te dipotassi um 3.75 mg tablet 01/24 completed Medicati on ID: [id number] B rand Name: clorazep ate dipotass ium [...] topical cream 01/24 completed Medicati on ID: [id number] B rand Name: nystatin Send Method: E-Prescr [...] eye drops 01/24 completed Medicati on ID: [id number] B rand Name: atropine Send Method: E-Prescr [...] Details Last Updated DateTime 01/25/2024 177.8 cm 67314.93 g Dahlia Chavarria [place] - [facility] 01/25/2024 10:49:58 Social History None recorded. Functional Status None recorded. Mental Status None recorded. Family History Nothing Reported. Medical History No medical history recorded. Past Encounters Encounter ID Performer Location Encounter Start Date Encounter Closed Date Diagnosis/Indication Diagnosis SNOMED-CT Code Diagnosis ICD10 Code Diagnosis Note [id number] KARLIE WILLIAM PA-C [facility] [address] [address] 01/25/2024 10:37:42 01/25/2024 11:22:43 Impacted cerumen of bilateral ears [id number] H61.23 Health Concerns Section Related Observation LastModified by Organization Detai ls LastModified Time None Recorded Concern Status LastModified by Organization Details LastModified Time None Recorded Advance Directives Directive None Recorded Payers Insurance Date Sequence Insurance Name Policy Number Policy Patel Covered Member ID Patel Member ID Guarantor Name 01/25/2024 2 [place] [facility] Kevin Fry [id number] Kevin Fry 01/25/2024 1 [place]: [employer] Kevin Fry [id number] Kevin Fry Notes Date Note Type Note Provider Name and Address Organization Details Recorded Time 01/25/2024 text/html 68 year old nonverbal male presents to the office from alf for routine six month ear cleaning. No concerns. KARLIE WILLIAM PA-C [address] [place] [address], [phone], [facility] - [facility] 01/25/2024 12:11:22
[2024-09-09 11:57] VITALS: BP 116/73; PULSE 64; RESP 20; TEMP 36.8; O2SAT 98
--- NOTE | 2024-09-09 11:57 | PC.NURSE ---
pt awake at his baseline, painter spring intact, vitals stable, pt to have repeat trop shortly- worker at bedside aware. call hagen within reach, plan of care ongoing
[2024-09-09 13:08] LABS: Troponin-I High Sensitivity 96.7 ng/L (<3.5-35.0)
[2024-09-09] MEDS: Aspirin 81 MG TAB.CHEW 324 MG PO (13:53)
[2024-09-09 13:55] VITALS: BP 122/76; PULSE 63; RESP 19; TEMP 36.3; O2SAT 98
--- NOTE | 2024-09-09 14:43 | MHC.EDTECH ---
Changed pt underwear, placed pt on comode.
[2024-09-09] MEDS: diazePAM 10 MG/2 ML CARTRIDGE 5 MG IVPUSH (15:13)
--- NOTE | 2024-09-09 15:15 | PC.NURSE ---
pt medicated per order
--- NOTE | 2024-09-09 15:23 | PC.NURSE ---
patient medicated per order
[2024-09-09] MEDS: iohexoL 350 MG/ML 100 ML INFUS..BTL IV (16:26)
[2024-09-09 18:32] VITALS: BP 123/73; PULSE 66; RESP 16; TEMP 36.9; O2SAT 98
[2024-09-09] MEDS: Enoxaparin Sodium 80 MG/0.8 ML SYRINGE 70 MG SUBCUT (19:39)
--- NOTE | 2024-09-09 20:20 | PC.NURSE ---
assumed care of pt, admitting LARD RENDERER Brenda at bedside for assessment. Pt on continuous monitoring. Pt medicated per to MAY. awaiting admitting bed assignment
--- NOTE | 2024-09-09 20:25 | PM.IMHP ---
History of Present Illness Date of Service: 09/09/24 Attending physician on admission: Teresa Salamanca Chief Complaint: report of tremors, chest pain Patient is a 68-year-old male with intellectual disability and inability to verbally communicate has past medical history of seizure disorder, left bundle branch block, posterior mitral valve prolapse, mild mitral valve regurgitation, anxiety, was brought in from his halfway with report of tremors this morning and a near syncopal episode. Staff indicated that patient did not seem himself and was indicating with his hands that he may be having chest pain. Staff did report to the ED provider that patient fell several days ago which he may have struck the right side of his head. Staff in the halfway were no longer present at time of admission. Patient's medical record folder was taken back to the halfway so no information currently available. The staff that are currently at the staff home are now a new shift and were not present when patient was brought in this morning. Patient was seen in the emergency department back in July of 2024 and had evidence of a non STEMI with a left bundle branch block. Patient was seen by Cardiology and an echocardiogram was done. There was evidence of posterior mitral valve leaflet prolapse and mild mitral valve regurgitation with moderate septal asymmetric hypertrophy and suggestion of basal inferolateral hypokinesis. Cardiology stated that the treatment option would be medical management and would not pursue invasive procedures. Patient was discharged on statin and aspirin. Today patient's troponins were elevated at 101.5 and repeat notes 96.7. Patient's hemodynamics are stable. Cardiology has been reconsulted. Patient will remain on telemetry. EKG does not note a sinus rhythm with first-degree AV block and a AK of 308. QTC 418. Will hold patient's beta sharonda. Left bundle branch block remains present. No obvious ischemic changes. Patient is not experiencing any hypoxia. CTA was done and ruled out PE, but incidentally there is evidence of ground-glass opacities and pneumonia. It is suspected that patient may be aspirating. Patient is afebrile with no leukocytosis and no left shift. Patient will be started on Unasyn and speech therapy eval prior to permitting diet. Currently on exam patient has no evidence of any tremors. Patient is smiling waving and interacting with staff and a very jovial way. Patient appears very comfortable. Patient does have a guardian in place. Review of Systems Review of Systems: Yes Unobtainable due to mental status [facility] Medical History (Updated 09/09/24 @ 20:38 by TASHA James) Rosacea Vitamin D deficiency Dysphagia Mitral regurgitation Seizure disorder Intellectual disability Anxiety Cognitive capacity: Awake, nonverbal, can follow commands and smile Pertinent family history: Unable to provide Social History Household Members: Caregiver Housing: Other Housing Other:: halfway Do you presently have visiting nurse or other home services: Yes Unable to assess alcohol history related to: Unable to respond Patient Tobacco Use Status: Never used Tobacco Advance Directives: Yes Advance Directives on File: Yes Advance Directives Date on File: 07/20/24 Do you have a plan to hurt others: No Plan Nutrition Risks: No Nutritional Risk service: No Ebola Risk: Travel/Contact With Anyone From Affected Area/s: No Has Patient Experienced Ebola Symptoms: No Meds Allergies Allergy/AdvReac Type Severity Reaction Status Date / Time No Known Allergies (No Known Allergy Verified 09/09/24 09:13 Allergies*) Active Medications: Current Medications Acetaminophen (Acetaminophen 325 Mg Tablet) 650 mg PO Q6H PRN PRN Reason: Pain, Mild 1-3,fever,headache Calcium Carbonate (Calcium Carbonate 750 Mg Tab.Chew) 750 mg PO Q4H PRN PRN Reason: Heartburn Enoxaparin Sodium (Enoxaparin Sodium 80 Mg/0.8 Ml Syringe) 70 mg 1 mg/kg (70 mg) SUBCUT Q12H [facility] Last Admin: 09/09/24 19:39 Dose: 70 mg Ampicillin Sodium/Sulbactam (Sodium 1.5 gm/ Sodium Chloride) 100 mls @ 200 mls/hr IV Q6H [facility] Magnesium Hydroxide (Milk Of Magnesia 30 Ml Oral.Susp) 30 ml PO DAILY PRN PRN Reason: Constipation Melatonin (Melatonin 3 Mg Tablet) 6 mg PO BEDTIME PRN PRN Reason: Insomnia Sodium Chloride (0.9 % Sodium Chloride Flush 3 Ml Syringe) 3 ml IVFLUSH QSHIFT [facility] Home Medications ?Medication ?Instructions ?Recorded ?Confirmed ?Last Taken ?Type clonazepam 0.5 mg disintegrating 0.5 mg PO BID PRN seizure disorder 01/25/23 07/20/24 Unknown History tablet divalproex 125 mg capsule,delayed 250 mg PO DAILY 01/25/23 07/20/24 Unknown History release sprinkle finasteride 5 mg tablet 5 mg PO DAILY 01/25/23 07/20/24 Unknown History lacosamide 200 mg tablet 200 mg PO BID 01/25/23 07/20/24 Unknown History lacosamide 50 mg tablet 50 mg PO BID 01/25/23 07/20/24 Unknown History lorazepam 0.5 mg tablet 0.5 mg PO BID Anxiety 01/25/23 07/20/24 Unknown History metoprolol succinate 25 mg 12.5 mg PO DAILY 01/25/23 07/20/24 Unknown History tablet,extended release 24 hr nystatin 100,000 unit/gram topical 1 appl topical DAILY 01/25/23 07/20/24 Unknown History powder phenobarbital 60 mg tablet 60 mg PO BID 01/25/23 07/20/24 Unknown History tamsulosin 0.4 mg capsule 0.8 mg PO BEDTIME 01/25/23 07/20/24 Unknown History acetaminophen 325 mg tablet 650 mg PO Q6H PRN Pain 07/20/24 07/20/24 Unknown History (Tylenol) aspirin 81 mg tablet,delayed 81 mg PO DAILY 07/20/24 07/20/24 Unknown History release bacitracin 500 unit/gram topical 1 appl topical TID PRN minor cuts, 07/20/24 07/20/24 Unknown History ointment scrapes, abrasions ciclopirox 0.77 % topical cream 1 appl topical BID 07/20/24 07/20/24 Unknown History divalproex 125 mg capsule,delayed 500 mg PO BEDTIME 07/20/24 07/20/24 Unknown History release sprinkle docusate sodium 100 mg capsule 100 mg PO DAILY 07/20/24 07/20/24 Unknown History metronidazole 0.75 % topical cream 1 appl topical DAILY 07/20/24 07/20/24 Unknown History multivitamin 1 tab PO DAILY 07/20/24 07/20/24 Unknown History Physical Exam Vital Signs and Narrative: Vital Signs: Last Vital Signs Temp 98.5 F 09/09/24 18:32 Pulse 66 09/09/24 18:32 Resp 16 09/09/24 18:32 BP 123/73 09/09/24 18:32 Pulse Ox 98 09/09/24 18:32 O2 Del Method Room Air 09/09/24 18:32 BMI result Body Mass Index 23.3 Alert and and interactive but nonverbal unable to provide any HPI 3 Neuro: Unable to complete exam as patient is nonverbal EYES: PERRLA, sclera nonicteric, conjunctiva pink ENT: hearing intact, uvula midline, lips moist, nares patent no epistaxis, some teeth are missing Cardiac: S1 S2 RRR, systolic murmur, no JVD, no edema in Lower ext Pulmonary: lungs bilateral rhonchi at the base Abdominal: BS active in all 4 quadrants, no guarding, tenderness, rebounding MSK: strength 4/5 upper and lower extremities : no bladder distension Extremities: no edema in lower extremities, PT and DP pulses palpable +2 Psych: mood happy, judgement and insight poor Skin: Intact, some mild excoriations on legs and back Results Labs 09/09/24 10:18 09/09/24 10:18 Labs: Laboratory Results - last 24 hr 09/09/24 09/09/24 09/09/24 10:17 10:18 10:20 MCV 97.1 MCH 32.8 MCHC 33.8 RDW 13.4 Plt Count 244 MPV 8.9 L Immature Gran % (Auto) 0.3 Neut % (Auto) 66.8 Lymph % (Auto) 23.0 [place] % (Auto) 6.8 Eos % (Auto) 2.3 Baso % (Auto) 0.8 Lymph # (Auto) 1.4 [place] # (Auto) 0.4 Eos # (Auto) 0.1 Baso # (Auto) 0.1 Abs Immat Gran (auto) 0.02 Absolute Neuts (auto) 4.2 Absolute Nucleated RBC 0.000 Nucleated RBC % (auto) 0.0 Anion Gap 10 L Estim Creat Clear Calc 110.2 Estimated GFR > 60 Random Glucose 90 Calcium 8.9 Troponin I High Sens 101.5 H* C-Reactive Protein 0.68 H Hold Red Top See Note Valproic Acid 24.3 L 09/09/24 12:40 MCV MCH MCHC RDW Plt Count MPV Immature Gran % (Auto) Neut % (Auto) Lymph % (Auto) [place] % (Auto) Eos % (Auto) Baso % (Auto) Lymph # (Auto) [place] # (Auto) Eos # (Auto) Baso # (Auto) Abs Immat Gran (auto) Absolute Neuts (auto) Absolute Nucleated RBC Nucleated RBC % (auto) Anion Gap Estim Creat Clear Calc Estimated GFR Random Glucose Calcium Troponin I High Sens 96.7 H C-Reactive Protein Hold Red Top Valproic Acid ECG Attestation: I personally reviewed and interpreted this ECG as follows: (Sinus rhythm first-degree AV block with a AK 308 normal QTC left bundle-branch block not new) Prior ECG tracings: available for review Imaging Radiologist's Impressions: Impressions Chest CTA 09/09/24 14:58 IMPRESSION: 1. Negative examination for pulmonary embolus. Exam limited by respiratory motion in the lower lobes especially. 2. No evidence of acute aortic syndrome. There is prominence of the aortic root measuring up to 5.1 cm. There is no definite aortic aneurysm. 3. Moderate cardiomegaly. 4. Bilateral lower lobe subpleural reticular and alveolar groundglass opacities, poorly evaluated due to motion although could represent bibasilar pneumonia in the appropriate clinical setting. 5. There is no effusion. Electronically signed by: Sukh Garcia MD 09/09/2024 04:36 PM EDT RP Assessment and Plan (1) Aspiration pneumonia: Status: Acute Plan Patient is a 68-year-old male with intellectual disability and inability to verbally communicate has past medical history of seizure disorder, left bundle branch block, posterior mitral valve prolapse, mild mitral valve regurgitation, anxiety was brought in from halfway with complaints of tremor and possible chest pain as reported by staff from the halfway. Workup ruled out PE but identified possible aspiration pneumonia. Troponins are elevated but now trending down. EKG with a first-degree AV block and long AK interval and known left bundle branch block but no ischemic changes. Moderate cardiomegaly also identified. No tremors identified on exam. Aspiration pneumonia -No evidence of sepsis -Patient is started on Unasyn -Currently NPO until bedside evaluations completed by nursing -Speech therapy evaluation ordered -Aspiration precaution -Duo nebs p.r.n. -PPI for suspected esophagitis Elevated troponin/ question of chest pain -Troponins 101.5, then 96.7. Patient is nonverbal presents comfortable smiling and interactive with staff -Cardiology consulted -Telemetry ordered -Continue aspirin and statin -Holding metoprolol due to first-degree AV block -Possible esophagitis expected if patient is aspirating with the evidence of pneumonia, PPI started Sinus rhythm first-degree AV block with a AK of 308 -Holding beta-sharonda -Telemetry -Cardiology consulted -Mag 2.0 -Checking TSH HFrEF -Found on echocardiogram from July of 2024 with an EF of 52%,will hold on ordering repeat echocardiogram -Patient presents euvolemic -Cardiomegaly noted on CTA -Checking BNP -Cardiology consulted -Holding beta-sharonda due to first-degree AV block -Daily weights -Low-sodium diet once cleared to eat -Measure intake and output every 8 hours Enlarged aortic root with no evidence of aneurysm -Aortic root measured 5.1 cms no evidence of aneurysm -Cardiology to review Report of tremors -No tremors identified on exam in the emergency department -Continue to monitor -question for related to anxiety History of seizures -No evidence of seizure activity -We will check phenobarb and divalproex levels in the a.m. -Seizure precautions ordered DVT prophylaxis: Lovenox PPI prophylaxis: Protonix IV Med rec pending Full Code status, patient has a guardian in place Quality Stroke Does the patient have a stroke diagnosis?: No Reason for No Anti-thrombotic by Day Two: N/A - Med Ordered VTE Prior VTE?: No VTE Risk Level:: Medical - moderate - high VTE Device Contraindication: Treatment Not Indicated VTE Drug Contraindication: N/A - Med Ordered
[2024-09-09 21:20] LABS: Free T4 (Free Thyroxine) 0.89 ng/dL (0.71-1.85); Thyroid Stimulating Hormone 2.17 uIU/mL (0.32-4.0)
[2024-09-09] MEDS: Ampicillin Sodium/Sulbactam Na 3 GM in 0.9 % Sodium Chloride 100 ML IV (21:26)
[2024-09-09] MEDS: Pantoprazole Sodium 40 MG/10 ML VIAL IVPUSH (21:27)
[2024-09-09 23:15] VITALS: BP 132/76; PULSE 66; RESP 17; O2SAT 93
--- NOTE | 2024-09-10 01:08 | PC.NURSE ---
pt found to be out of bed unsteady gate. self removed iv. pt incontinent urine. pt repositioned back to bed. iv replaced in L Ac. pt tolerated fairly well. pt placed back on project archivist
[2024-09-10] MEDS: 0.9 % Sodium Chloride Flush 3 ML SYRINGE IVFLUSH ×3 (01:17→15:42)
[2024-09-10 01:50] VITALS: BMI 23.4
[2024-09-10] MEDS: Ampicillin Sodium/Sulbactam Na 3 GM in 0.9 % Sodium Chloride 100 ML IV ×3 (03:09→14:27)
[2024-09-10 04:00] VITALS: BP 136/78; PULSE 70; RESP 16; TEMP 37.1; O2SAT 100
[2024-09-10] MEDS: Enoxaparin Sodium 80 MG/0.8 ML SYRINGE 70 MG SUBCUT ×2 (05:52→17:09)
[2024-09-10] MEDS: Pantoprazole Sodium 40 MG/10 ML VIAL IVPUSH ×2 (05:52→15:42)
[2024-09-10 06:21] LABS: Valproate < 12.5 mcg/mL (50.0-100.0)
[2024-09-10 06:27] LABS: B Type Natriuretic Peptide 204 pg/mL (<100)
[2024-09-10 06:36] LABS: Troponin-I High Sensitivity 120.8 ng/L (<3.5-35.0)
[2024-09-10 06:56] VITALS: BP 124/69; PULSE 65; RESP 20; TEMP 36.5; O2SAT 95
--- NOTE | 2024-09-10 08:40 | MHC.CM.PN ---
CM attempted to speak with Guardian/Devika @ [phone], but was only able to leave her a detailed message regarding the SIDHU(original will be mailed to Devika @ [address] [place] [address] [place] [id number] and a copy has been placed on the chart)/Goal is for Patient to return to his [facility] via BLS and CM has initiated and will follow for dc planning. PCP is Dr. Bimal Hampton
--- NOTE | 2024-09-10 08:46 | PHA.MEDREC ---
Pharmacy Consult ? Medication Reconciliation Pharmacy has completed the medication reconciliation. Spoke to anahi who knew all medications
--- NOTE | 2024-09-10 08:49 | CA_ITS ---
Transthoracic Echocardiogram Patient (Last, First, Middle): Kevin Fry R Gender: Male Date of : 1955 Age: 68 Procedure Date: 09/10/2024 Procedure Type: Transthoracic Echocardiogram Location: [facility] [place] Height: 175.26 cm Weight: 71.67 kg BSA: 1.87 m2 Heart Rate: bpm BP: 124 / 69 mmHg [place] Worker: Referring MD: Artie Reese MD Symptoms: Trop elevation, mitral regurgitation. Study Quality: Adequate ECG Rhythm: Sinus Conclusions: - The left ventricular systolic function is normal. The calculated ejection fraction is 57% by biplane method. - The basal inferolateral segment is hypokinetic. - There is a flail posterior mitral leaflet. There is moderate mitral valve regurgitation. Due to eccentricity, underestimation possible. - There is moderate dilatation of the sinuses of Valsalva measuring 4.40 cm and mild dilatation of the ascending aorta measuring 3.80 cm. Likely underestimation. Findings Left Ventricle Mildly increased left ventricular cavity size. There is mildly increased left ventricular wall thickness. The left ventricular systolic function is normal. The calculated ejection fraction is 57% by biplane method. Diastolic function is indeterminate on the basis of available data. Wall Motion Rest Echo Findings The basal inferolateral segment is hypokinetic. Right Ventricle Normal right ventricular cavity size and systolic function. Atria Both atria are normal in size. Aortic Valve There is a normal trileaflet aortic valve. There is no aortic valve stenosis. There is no aortic valve regurgitation. Mitral Valve There is a flail posterior mitral leaflet. There is moderate mitral valve regurgitation. The mitral regurgitation jet is directed anteriorly. There is no mitral valve stenosis. Pulmonic Valve The pulmonic valve is likely normal. Tricuspid Valve Normal tricuspid valve structure. There is trace tricuspid valve regurgitation. There is no evidence of pulmonary hypertension. Great Vessels There is moderate dilatation of the sinuses of Valsalva measuring 4.40 cm and mild dilatation of the ascending aorta measuring 3.80 cm. Venous The inferior vena cava is normal in size and collapses greater than 50% with inspiration. Pericardium/Pleural There is no evidence of pericardial effusion. Prior Study Comparison Changes noted compared to prior study dated: 07/23/2024. See comment on mitral valve. Measurements 2D Linear Measurements IVSd: 1.15 0.6-0.9/0.6-1.0 cm LVIDd: 5.73 3.9-5.3/4.2-5.9 cm LVIDd Index: 3.06 2.4-3.2/2.2-3.1 cm/m2 LVIDs: 4.11 2.0-3.6 cm LVPWd: 1.07 0.7-1.1 cm LA Diam: 3.50 2.7-3.8/3.0-4.0 cm LAIDs Index: 1.87 1.5-2.3 cm/m2 LV Mass: 326.90 67-162/88-224 g LV Mass Index: 174.81 43-95/49-115 g/m2 LVOT Diam: 2.50 3.0+(-)1.3 cm 2D Systolic Function EF 4C: 53.60 >55% EF 2C: 64.50 >55% EF BiP: 56.80 >55% Mitral Valve MR Vol - PW Dopp: 29.64 MR VTI: 1.14 MR ERO: 26.00 MR Alias Gordon: 0.36 MR RAD: 0.70 Aortic Valve AoV Pk Gordon: 1.00 AoV Mn Gordon: 0.64 AoV VTI: 0.18 AoV Pk Grad: 4.00 Aov Mn Grad: 2.00 BILLY Cont.VTI: 3.17 LVOT LVOT Pk Gordon: 0.54 LVOT Mn Gordon: 0.34 LVOT VTI: 0.12 LVOT Pk Grad: 1.00 LVOT Mn Grad: 1.00 LVOT Diam: 2.50 LVOT Area: 4.91 Great Vessels Aorta Sinus of Valsalva: 4.40 2.0-3.5 cm Ao Asc: 3.80 2.1-3.4 cm Pulmonary Valve PV Pk Gordon: 1.07 Peak PV Grad: 5.00 Updated in Other Vendor System with Status of Final Artie Reese MD electronically signed on 09/10/2024 11:41:31 AM with status of Final
--- NOTE | 2024-09-10 09:47 | PM.CNCAR ---
History of Present Illness History of Present Illness Date of Service: 09/10/24 Chief complaint: Chest pain Narrative: This is a cardiology consultation regarding elevated troponins. Patient has intellectual disability with history of seizure disorder and it seems that patient was not himself and was indicating with his hence that he may be having chest pain. Subsequently, he was checked in the ER and he was found to have low-grade troponin leak. Then the seems that there was also concern for aspiration pneumonia. He has been made NPO per notes and started antibiotics. He is admitted for further care. Patient himself is not able to give any history. Review of Systems Review of Systems: Unable to obtain from patient. 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: Caregiver Household Members Other:: residents/staff Housing: Other Housing Other:: assisted Unable to assess alcohol history related to: Unable to respond Patient Tobacco Use Status: Never used Tobacco Advance Directives Date on File: 07/20/24 service: No Travel History Ebola Risk: Travel/Contact With Anyone From Affected Area/s: No Has Patient Experienced Ebola Symptoms: No Meds Allergies Allergy/AdvReac Type Severity Reaction Status Date / Time No Known Allergies (No Known Allergy Verified 09/09/24 09:13 Allergies*) Active Medications: Current Medications Acetaminophen (Acetaminophen 325 Mg Tablet) 650 mg PO Q6H PRN PRN Reason: Pain, Mild 1-3,fever,headache Calcium Carbonate (Calcium Carbonate 750 Mg Tab.Chew) 750 mg PO Q4H PRN PRN Reason: Heartburn Enoxaparin Sodium (Enoxaparin Sodium 80 Mg/0.8 Ml Syringe) 70 mg 1 mg/kg (70 mg) SUBCUT Q12H [facility] Last Admin: 09/10/24 05:52 Dose: 70 mg Ampicillin Sodium/Sulbactam (Sodium 3 gm/ Sodium Chloride) 100 mls @ 200 mls/hr IV Q6H [facility] Last Infusion: 09/10/24 04:45 Dose: Infused Magnesium Hydroxide (Milk Of Magnesia 30 Ml Oral.Susp) 30 ml PO DAILY PRN PRN Reason: Constipation Melatonin (Melatonin 3 Mg Tablet) 6 mg PO BEDTIME PRN PRN Reason: Insomnia Pantoprazole Sodium (Pantoprazole Sodium 40 Mg/10 Ml Vial) 40 mg IVPUSH BID@0630,1630 [facility] Last Admin: 09/10/24 05:52 Dose: 40 mg Sodium Chloride (0.9 % Sodium Chloride Flush 3 Ml Syringe) 3 ml IVFLUSH QSHIFT [facility] Last Admin: 09/10/24 01:17 Dose: 3 ml Home Medications ?Medication ?Instructions ?Recorded ?Confirmed ?Last Taken ?Type clonazepam 0.5 mg disintegrating 0.5 mg PO BID PRN seizure disorder 01/25/23 09/10/24 Unknown History tablet divalproex 125 mg capsule,delayed 250 mg PO DAILY 01/25/23 09/10/24 Unknown History release sprinkle finasteride 5 mg tablet 5 mg PO DAILY 01/25/23 09/10/24 Unknown History lacosamide 200 mg tablet 200 mg PO BID 01/25/23 09/10/24 Unknown History lacosamide 50 mg tablet 50 mg PO BID 01/25/23 09/10/24 Unknown History lorazepam 0.5 mg tablet 0.5 mg PO BID Anxiety 01/25/23 09/10/24 Unknown History metoprolol succinate 25 mg 12.5 mg PO DAILY 01/25/23 09/10/24 Unknown History tablet,extended release 24 hr phenobarbital 60 mg tablet 60 mg PO BID 01/25/23 09/10/24 Unknown History tamsulosin 0.4 mg capsule 0.8 mg PO BEDTIME 01/25/23 09/10/24 Unknown History acetaminophen 325 mg tablet 650 mg PO Q6H PRN Pain 07/20/24 09/10/24 Unknown History (Tylenol) aspirin 81 mg tablet,delayed 81 mg PO DAILY 07/20/24 09/10/24 Unknown History release bacitracin 500 unit/gram topical 1 appl topical TID PRN minor cuts, 07/20/24 09/10/24 Unknown History ointment scrapes, abrasions divalproex 125 mg capsule,delayed 500 mg PO BEDTIME 07/20/24 09/10/24 Unknown History release sprinkle docusate sodium 100 mg capsule 100 mg PO DAILY 07/20/24 09/10/24 Unknown History multivitamin 1 tab PO DAILY 07/20/24 09/10/24 Unknown History Physical Exam Vital Signs: Vital Signs: Last Vital Signs Temp 97.7 F 09/10/24 06:56 Pulse 65 09/10/24 06:56 Resp 20 09/10/24 06:56 BP 124/69 09/10/24 06:56 Pulse Ox 95 09/10/24 06:56 O2 Del Method Room Air 09/10/24 06:56 BMI result Body Mass Index 23.4 Const: General: comfortable and no acute distress Orientation/consciousness: No patient oriented x3 HEENT: Other: Unremarkable Head: Yes normal to inspection Neck: Neck: Yes normal visual inspection Chest: Chest palpation & inspection: normal inspection of the chest Resp: Auscultation: clear to auscultation bilaterally Cardio: Palpation: normal PMI Heart sounds: S1 normal heart sound present, no gallops, Murmur heart sound present systolic holo, III/ and at the apex and no rubs GI: Palpation (GI): Soft to palpation Back/Spine/Pelvis: Other: unremarkable Skin: General skin exam: no rashes or lesions noted Neuro: General: No patient oriented x3 Extrem: General: Yes normal to inspection Psych: Mental Status: mental status grossly normal Objective Labs and Meds 09/09/24 10:18 09/09/24 10:18 Lab results: Laboratory Results - last 24 hr 09/09/24 09/09/24 09/09/24 10:17 10:18 10:20 WBC 6.2 RBC 4.51 L Hgb 14.8 Hct 43.8 MCV 97.1 MCH 32.8 MCHC 33.8 RDW 13.4 Plt Count 244 MPV 8.9 L Immature Gran % (Auto) 0.3 Neut % (Auto) 66.8 Lymph % (Auto) 23.0 Brooks % (Auto) 6.8 Eos % (Auto) 2.3 Baso % (Auto) 0.8 Lymph # (Auto) 1.4 Brooks # (Auto) 0.4 Eos # (Auto) 0.1 Baso # (Auto) 0.1 Abs Immat Gran (auto) 0.02 Absolute Neuts (auto) 4.2 Absolute Nucleated RBC 0.000 Nucleated RBC % (auto) 0.0 Sodium 142 Potassium 4.1 Chloride 107 Carbon Dioxide 29 Anion Gap 10 L BUN 15 Creatinine 0.65 Estim Creat Clear Calc 110.2 Estimated GFR > 60 Random Glucose 90 Calcium 8.9 Troponin I High Sens 101.5 H* C-Reactive Protein 0.68 H B-Natriuretic Peptide TSH 2.17 Free T4 0.89 Hold Red Top See Note Valproic Acid 24.3 L Phenobarbital 09/09/24 09/10/24 12:40 05:50 WBC RBC Hgb Hct MCV MCH MCHC RDW Plt Count MPV Immature Gran % (Auto) Neut % (Auto) Lymph % (Auto) Brooks % (Auto) Eos % (Auto) Baso % (Auto) Lymph # (Auto) Brooks # (Auto) Eos # (Auto) Baso # (Auto) Abs Immat Gran (auto) Absolute Neuts (auto) Absolute Nucleated RBC Nucleated RBC % (auto) Sodium Potassium Chloride Carbon Dioxide Anion Gap BUN Creatinine Estim Creat Clear Calc Estimated GFR Random Glucose Calcium Troponin I High Sens 96.7 H 120.8 H* C-Reactive Protein B-Natriuretic Peptide 204 H TSH Free T4 Hold Red Top Valproic Acid < 12.5 L Phenobarbital 24.7 ECG Interpretation: EKG shows sinus rhythm with left bundle-branch block pattern. Imaging Radiologist's impression: Impressions Chest CTA 09/09/24 14:58 IMPRESSION: 1. Negative examination for pulmonary embolus. Exam limited by respiratory motion in the lower lobes especially. 2. No evidence of acute aortic syndrome. There is prominence of the aortic root measuring up to 5.1 cm. There is no definite aortic aneurysm. 3. Moderate cardiomegaly. 4. Bilateral lower lobe subpleural reticular and alveolar groundglass opacities, poorly evaluated due to motion although could represent bibasilar pneumonia in the appropriate clinical setting. 5. There is no effusion. Electronically signed by: Sukh Garcia MD 09/09/2024 04:36 PM EDT Assessment and Plan (1) Elevated troponin: Status: Acute (2) Mitral regurgitation: Status: Acute (3) Left bundle branch block: Status: Acute (4) Aortic aneurysm: Status: Acute (5) Intellectual disability: Status: Acute Plan In the recent echocardiogram, LVEF was 52%. Possible basal inferolateral hypokinesis but not clear if it was related to the adjacent hypertrophy. Mild posterior leaflet prolapse with mild mitral regurgitation. Moderate dilatation of ascending aorta at the sinus of Valsalva level 5 cm measurement. In the current CTA, aortic root measures 5.1 cm. Reported moderate cardiomegaly. Bilateral lower lobe opacities, possible pneumonia. Low-grade troponin leak with measurements of 101, 96 and 120. Last month, it was 71 and 89. Cardiac BNP slightly abnormal 204. Overall, intellectual disability at baseline, possible chest pain but unobtainable history, severe mitral regurgitation on exam but recent echocardiogram with much less prominent MR, enlarged aortic root, low-grade troponin leaks. Would repeat an echocardiogram to reassess mitral regurgitation. Okay to keep on therapeutic Lovenox today then we can stop it. Any invasive cardiac procedures and he will be difficult and complicated mainly because of underlying mental disability. We will need to talk to his day care center director for anything else beyond this. We will follow up with you. Procedures Date of Service Date of Service: 09/10/24
[2024-09-10 10:53] VITALS: BP 121/71; PULSE 67; RESP 20; TEMP 36.7; O2SAT 96
[2024-09-10 11:40] LABS: Appearance Urine Clear; Color Urine Yellow; Glucose Urine UA Negative (Negative); Leukocyte Esterase Urine Small (1+) (Negative); Nitrite Urine Negative (Negative); Specific Gravity - Urine >= 1.030 (1.005-1.025); UMIC TRIGGER UA YES; Urine Blood Negative (Negative); Urine Ketones Negative (Negative); Urine Protein Negative (Neg-Trace)
[2024-09-10 11:45] LABS: Bacteria Urine None Seen (None Seen); Hyaline Casts Urine 0-2 /LPF (0-2); RBC Urine 0-2 /HPF (0-2); Squamous Epithelial Cell Urine 0-2 /HPF (0-2)
--- NOTE | 2024-09-10 12:25 | MHC.SL.SWA ---
Speech Pathologist Impression: dysphagia Risk of Aspiration Due to: impulsive eating behaviors hx dysphagia Dysphasia Diet Status: UPGRADE Liquid Consistency and Strategies for Safe Swallow: Liquid Intake Recommendation: Honey Thick Solid Food Consistency: Dietary Recommendations: Grnd/Mech Altered (NDD2) Additional Modifications to Solid Foods: Patient's main risk is impulsivity, recommend supervision at meals with cuing to slow rate, avoid spilling. Oral Medication Intake: Crushed with Puree Please contact the pharmacy regarding appropriate crushable or liquid drug formulations that are available whenever modified delivery is recommended. Compensatory Strategies and Precautions to be Taken for Safe Swallow: slow rate alternate liquid/solid sit upright Supervision While Eating and Drinking for Safe Swallow: Direct Supervision (1:1) Recommendation for Speech: Outpatient Speech Therapy Inpatient Speech Therapy Modified Barium Swallow Study - Inpatient Modified Barium Swallow Study - Outpatient Comment: Pt seen for clinical swallow evaluation at bedside. SEGMENT PRODUCER recommending ground solids (NDD2) and honey thick liquids. Pills crushed in puree when possible. Recommend 1-1 supervision to provide cueing and monitor toleration of diet. Per RN at detention, pt's baseline based on VFSS ([address] [facility]) is honey thick liquids and chopped solids. Pt would benefit from current MBSS given his long hx of dysphagia, date of previous instrumental, and current dx of aspiration PNA. MD and RN notified verbally in person. Frequency/Duration: M-F daily weekends population health manager-in need basis Chemical Processing Laborer Clinican/Clinical Fellow: No Supervisory Statement: I have reviewed and agree with the student/clinical fellow's documentation: N/A Speech Language Pathologist: Nava Fontanez M.A., CCC-SEGMENT PRODUCER
--- NOTE | 2024-09-10 13:08 | P.DS_ITS ---
DS: Providers Provider Date of Service: 09/10/24 Date of admission: 09/09/24 17:37 Date of discharge: 09/10/24 Primary care physician: Bimal Hampton III, MD Consults: 09/09/24 18:51 Consult to Cardiology Routine Consulting Provider: [facility] Reason for consultation: nstemi DS: Transfer Hospital Acceptance Reason for Transfer: ischemic cardiac w/u Name of Facility: [facility] Accepting Provider: Dr Reyes DS: Diagnosis Discharge Diagnosis (1) Elevated troponin: Status: Acute (2) Mitral regurgitation: Status: Acute (3) Left bundle branch block: Status: Acute (4) Aortic aneurysm: Status: Acute (5) Intellectual disability: Status: Acute (6) Aspiration pneumonia: Status: Acute (7) NSTEMI (non-ST elevated myocardial infarction): Status: Acute DS: Summary Hospital Course Hospital Course: H&P on admission: Patient is a 68-year-old male with intellectual disability and inability to verbally communicate has past medical history of seizure disorder, left bundle branch block, posterior mitral valve prolapse, mild mitral valve regurgitation, anxiety, was brought in from his [place] [facility] with report of tremors this morning and a near syncopal episode. Staff indicated that patient did not seem himself and was indicating with his hands that he may be having chest pain. Staff did report to the ED provider that patient fell several days ago which he may have struck the right side of his head. Staff in the [place] [facility] [place] were no longer present at time of admission. Patient's medical record folder was taken back to the [place] [facility] [place] so no information currently available. The staff that are currently at the staff home are now a new shift and were not present when patient was brought in this morning. Patient was seen in the emergency department back in July of 2024 and had evidence of a non STEMI with a left bundle branch block. Patient was seen by Cardiology and an echocardiogram was done. There was evidence of posterior mitral valve leaflet prolapse and mild mitral valve regurgitation with moderate septal asymmetric hypertrophy and suggestion of basal inferolateral hypokinesis. Cardiology stated that the treatment option would be medical management and would not pursue invasive procedures. Patient was discharged on statin and aspirin. Today patient's troponins were elevated at 101.5 and repeat notes 96.7. Patient's hemodynamics are stable. Cardiology has been reconsulted. Patient will remain on telemetry. EKG does not note a sinus rhythm with first-degree AV block and a CO of 308. QTC 418. Will hold patient's beta sharonda. Left bundle branch block remains present. No obvious ischemic changes. Patient is not experiencing any hypoxia. CTA was done and ruled out PE, but incidentally there is evidence of ground-glass opacities and pneumonia. It is suspected that patient may be aspirating. Patient is afebrile with no leukocytosis and no left shift. Patient will be started on Unasyn and speech therapy eval prior to permitting diet. Currently on exam patient has no evidence of any tremors. Patient is smiling waving and interacting with staff and a very jovial way. Patient appears very comfortable. Patient does have a guardian in place. Hospital course: The patient was started on Unasyn for aspiration pneumonia. He was seen by Cardiology for elevated troponins, left bundle branch block, found to have NSTEMI requiring transfer. per cardiology consult: In the echocardiogram, basal inferolateral hypokinesis. Posterior mitral leaflet appears flail. Moderate mitral regurgitation but underestimation as possible because it is very eccentric. Dilated aortic root. In the CTA, aortic root was 5.1 cm. Findings discussed with legal guardian, Devika Felder. She stating that she would like comprehensive assessment and full treatments. Hence discussed with Dr. Reyes, [facility]. Plan would be to transfer. Ischemic workup with either coronary CTA or cardiac catheterization. With regard to the mitral valve, consider transesophageal echocardiogram. However, not clear how much he can cooperate for these procedure. Patient to be transferred to [facility]. Continue with therapeutic Lovenox, aspirin, statin and metoprolol. Continue Unasyn for aspiration pneumonia. Bedside swallow was done by speech language pathology who andreina mmended ground mechanical and honey thick liquids. They also suggested video fluoroscopy. Status at Discharge Overall status at discharge: patient is progressing back to baseline Time Attestation Discharge Coordination Time (in mins): 45 Quality: Safe Use of Opioids Does Pt have an Active Cancer Diagnosis on the Problem List?: No Quality: Stroke Does the patient have a stroke diagnosis?: No Physical Exam Vital Signs: Vital Signs: Last Vital Signs Temp 98.0 F 09/10/24 10:53 Pulse 67 09/10/24 10:53 Resp 20 09/10/24 10:53 BP 121/71 09/10/24 10:53 Pulse Ox 96 09/10/24 10:53 O2 Del Method Room Air 09/10/24 10:53 BMI result Body Mass Index 23.4 General: Alert and awake, no acute distress Resp: CTA bilaterally, no wheezing or crackles CVS: RRR, + murmur GI: +BS, NT, no distention Skin: Warm, dry Neuro: Cranial nerves II-XII grossly intact bilaterally. Motor grossly intact bilaterally Extremities: No pitting edema Psych: Intellectual disability DS: Data Data Completed and Pending Labs on day of discharge: Laboratory Results - last 24 hr 09/09/24 09/09/24 09/10/24 10:18 12:40 05:50 Troponin I High Sens 96.7 H 120.8 H* B-Natriuretic Peptide 204 H TSH 2.17 Free T4 0.89 Urine Color Urine Appearance Urine pH Ur Specific [place] Urine Protein Urine Glucose (UA) Urine Ketones Urine Blood Urine Nitrite Ur Leukocyte Esterase Urine RBC Urine WBC Ur Squamous Epith Cells Urine Bacteria Hyaline Casts Valproic Acid < 12.5 L Phenobarbital 24.7 09/10/24 11:25 Troponin I High Sens B-Natriuretic Peptide TSH Free T4 Urine Color Yellow Urine Appearance Clear Urine pH 8.0 Ur Specific [place] >= 1.030 H Urine Protein Negative Urine Glucose (UA) Negative Urine Ketones Negative Urine Blood Negative Urine Nitrite Negative Ur Leukocyte Esterase Small (1+) H Urine RBC 0-2 Urine WBC 6-10 H Ur Squamous Epith Cells 0-2 Urine Bacteria None Seen Hyaline Casts 0-2 Valproic Acid Phenobarbital Discharge Plan Discharge Anticipated Discharge Date/Time: 09/10/24 12:55 Patient Disposition: Xfer Acute Care Hospital Discharge Diagnosis: chest pain, elevated troponins, LBBB, abnormal echo - ischemic, mitral valve regurgitation, NSTEMI, aspiration pneumonia Referrals: Bimal Hampton III, MD [Primary Care Provider, Medical] - 1 Week Discharge Medications: New pantoprazole [Protonix] 40 mg Recon Soln 40 mg IVPUSH BID@0630,1630 Qty: 1 0RF ampicillin-sulbactam 3 gram Recon Soln 3 g IV Q6H Qty: 10 0RF enoxaparin 80 mg/0.8 mL Syringe 70 mg subcut Q12H Qty: 8 0RF Continued multivitamin Tablet 1 tab PO DAILY acetaminophen [Tylenol] 325 mg Tablet 650 mg PO Q6H PRN (Reason: Pain) bacitracin 500 unit/gram Ointment 1 appl TOPICAL TID PRN (Reason: minor cuts, scrapes, abrasions) aspirin 81 mg Tablet,Delayed Release (Dr/Ec) 81 mg PO DAILY docusate sodium 100 mg Capsule 100 mg PO DAILY divalproex 125 mg capsule, delayed rel sprinkle 500 mg PO BEDTIME atorvastatin 40 mg tablet 40 mg PO BEDTIME Qty: 90 0RF tamsulosin 0.4 mg capsule 0.8 mg PO BEDTIME finasteride 5 mg tablet 5 mg PO DAILY divalproex 125 mg capsule, delayed rel sprinkle 250 mg PO DAILY phenobarbital 60 mg tablet 60 mg PO BID metoprolol succinate 25 mg tablet extended release 24 hr 12.5 mg PO DAILY lacosamide 200 mg tablet 200 mg PO BID Rx Instructions: w/ 50 BID lacosamide 50 mg tablet 50 mg PO BID Rx Instructions: w/ 200 BID lorazepam 0.5 mg tablet 0.5 mg PO BID clonazepam 0.5 mg tablet,disintegrating 0.5 mg PO BID PRN (Reason: seizure disorder) Discharge Orders: Discharge Order (Routine); Ordered 09/10/24 Ordered By: Shonda Gaytan Activity on Discharge: Rest with bed elevated Stand Alone Forms: Patient Portal Discharge page Print Language: Belgian Care Plan Goals: transfer care to [facility] for further cardac testing, coronary CTA or cardiac cath recovery from aspiration pneumonia Health Concerns: - Abnormal echocardiogram with basal inferolateral hypokinesis. Posterior mitral leaflet appears frail. Moderate mitral regurg. Transfer patient to [facility] for further ischemic workup with either coronary CTA or cardiac catheterization. Consider transesophageal echocardiogram for mitral valve. - aspiration pneumonia Plan of Treatment: Transfer patient to [facility] for further cardiac workup as above Continue therapeutic Lovenox Q12H Continue Unasyn q.6h for aspiration pneumonia Recommendations per speech swallow eval for possible video fluoroscopy Continue atorvastatin 40 mg q.h.s., aspirin 81 mg daily and metoprolol 12.5 mg daily Assessment: see above
[2024-09-10 14:24] VITALS: BP 131/77
[2024-09-10] MEDS: Multivitamin TABLET 1 TAB PO (14:26)
[2024-09-10] MEDS: LORazepam 0.5 MG TABLET PO (14:26)
[2024-09-10] MEDS: PHENobarbitaL 30 MG TABLET 60 MG PO (14:26)
[2024-09-10] MEDS: Divalproex Sodium Sprinkles 125 MG CAP.DR.SPR 250 MG PO (14:26)
[2024-09-10] MEDS: Lacosamide 100 MG TABLET 200 MG PO (14:26)
[2024-09-10] MEDS: Docusate Sodium 100 MG CAPSULE PO (14:27)
[2024-09-10] MEDS: Aspirin Enteric Coated 81 MG TABLET.DR PO (14:27)
[2024-09-10] MEDS: Metoprolol Succinate ER 12.5 MG HALFTAB.ER.24H PO (14:27)
[2024-09-10] MEDS: Finasteride 5 MG TABLET PO (14:27)
--- NOTE | 2024-09-10 14:33 | MHC.CM.PN ---
Patient is being transferred to [facility]. CM spoke with [facility] Nurse/Gabriella Angulo @ [phone] and have faxed the dc summary to her at [phone]. CM has also left a detailed message for Guardian/Devika, at listed #, informing her of the transfer to [facility].
[2024-09-10 16:00] VITALS: BP 128/75; PULSE 65; RESP 18; TEMP 36.8; O2SAT 92
--- NOTE | 2024-09-14 12:05 | P.EN_ITS ---
Event Note Date of Service: 09/14/24 Event Note: Notified by lab that 1/2 blood cultures tested positive for Gram-negative rods. Sensitivities pending, contamination a possibility. Was started on Unasyn here at [facility] out of concern for aspiration pneumonia. Pt was then transferred to [facility] due to NSTEMI in need of additional cardiac workup. Unasyn was continued by [facility] and pt completed a 5 day course there. Additional workup at [facility] included cardiac CTA that was negative for atherosclerotic CAD. pt was discharged home on 09/14/2024. We will continue to follow cultures for sensitivities and notify pt if any concern for bacteremia and need for additional antibiotics. Time Spent With Patient Time: Total time managing care of this patient today ____ minutes.
--- NOTE | 2024-09-14 12:05 | PM.EVENT ---
Event Note Date of Service: 09/14/24 Event Note: Notified by lab that 1/2 blood cultures tested positive for Gram-negative rods. Sensitivities pending, contamination a possibility. Was started on Unasyn here at [facility] out of concern for aspiration pneumonia. Pt was then transferred to [facility] due to NSTEMI in need of additional cardiac workup. Unasyn was continued by [facility] and pt completed a 5 day course there. Additional workup at [facility] included cardiac CTA that was negative for atherosclerotic CAD. pt was discharged home on 09/14/2024. We will continue to follow cultures for sensitivities and notify pt if any concern for bacteremia and need for additional antibiotics. Time Spent With Patient Time: Total time managing care of this patient today ____ minutes.
== END 2024-09-10 19:20 | disposition short-term general hospital (02) ==
LOC: HO.ED 17:47 → HO.EDOVER 18:06 → HO.IMC 09-10 00:49
PROVIDERS: Nurse Practitioner Family; Student in an Organized Health Care Education/Training Program; Admitting Provider Internal Medicine; Emergency Provider Emergency Medicine; PCP Internal Medicine; Visit Provider Physician Assistant
DX: I21.4 Non-ST elevation (NSTEMI) myocardial infarction (principal); I34.0 Nonrheumatic mitral (valve) insufficiency; J69.0 Pneumonitis due to inhalation of food and vomit; R79.89 Other specified abnormal findings of blood chemistry; I44.0 Atrioventricular block, first degree; I71.9 Aortic aneurysm of unspecified site, without rupture; F79 Unspecified intellectual disabilities; R07.9 Chest pain, unspecified; G40.909 Epilepsy, unspecified, not intractable, without status epilepticus; Z79.899 Other long term (current) drug therapy
CPT/HCPCS: 36415; 71275; 80048; 80164; 80184; 81001; 83880; 84439; 84443; 84484; 85025; 86140; 87040; 87205; 92610; 93005; 93306; 96365; 96366; 96372; 96375; 96376; 99222; 99285; J0295; J1650; J2470; J3360; Q9967

== ENCOUNTER → 2024-09-09 09:35 | Outpatient (BNV) | payer MEDICARE, MEDICAID, SELFPAY | PROVIDERS: Admitting Provider Internal Medicine; Emergency Provider Emergency Medicine; PCP Internal Medicine; Visit Provider Internal Medicine | DX: I44.0 Atrioventricular block, first degree (principal); I44.7 Left bundle-branch block, unspecified | CPT/HCPCS: 93010 ==

== ENCOUNTER → 2024-09-09 13:54 | Outpatient (BNV) | payer MEDICARE, MEDICAID, SELFPAY | PROVIDERS: Emergency Provider Emergency Medicine; PCP Internal Medicine; Visit Provider Radiology Diagnostic Radiology | DX: R91.8 Other nonspecific abnormal finding of lung field (principal); I51.7 Cardiomegaly | CPT/HCPCS: 71275 ==

== ENCOUNTER 2024-09-09 17:37 | Outpatient (BNV) | payer MEDICARE, MEDICAID, SELFPAY | END 2024-09-10 08:49 | PROVIDERS: Admitting Provider Internal Medicine; Emergency Provider Emergency Medicine; PCP Internal Medicine; Visit Provider Internal Medicine | DX: I34.0 Nonrheumatic mitral (valve) insufficiency (principal); I34.1 Nonrheumatic mitral (valve) prolapse | CPT/HCPCS: 93306 ==

== ENCOUNTER → 2024-09-09 17:37 | Outpatient (BNV) | payer MEDICARE, MEDICAID, SELFPAY | PROVIDERS: Admitting Provider Internal Medicine; Emergency Provider Emergency Medicine; PCP Internal Medicine; Visit Provider Nurse Practitioner Family | DX: J69.0 Pneumonitis due to inhalation of food and vomit (principal) | CPT/HCPCS: 99222; 99239; 99499 ==

== ENCOUNTER → 2024-09-09 17:37 | Outpatient (BNV) | payer MEDICARE, MEDICAID, SELFPAY | PROVIDERS: Admitting Provider Internal Medicine; Emergency Provider Emergency Medicine; PCP Internal Medicine; Visit Provider Internal Medicine | DX: R79.89 Other specified abnormal findings of blood chemistry (principal); I34.0 Nonrheumatic mitral (valve) insufficiency; I44.7 Left bundle-branch block, unspecified; I71.21 Aneurysm of the ascending aorta, without rupture; F79 Unspecified intellectual disabilities | CPT/HCPCS: 99223 ==

== ENCOUNTER 2024-11-21 20:56 | Emergency (ER) | payer MEDICARE, MEDICAID, SELFPAY ==
--- NOTE | 2024-11-21 | ECG_ITS ---
Test Reason : ?AL Blood Pressure : */* mmHG Vent. Rate : 76 BPM Atrial Rate : 76 BPM P-R Int : 284 ms QRS Dur : 150 ms QT Int : 384 ms P-R-T Axes : 74 -29 106 degrees QTcB Int : 432 ms Sinus rhythm with 1st degree A-V block Left bundle branch block Abnormal ECG When compared with ECG of 09-Sep-2024 09:50, No significant change was found Referred By: Generic ED Physician Electronically Signed By: Josh Mcdaniel
[2024-11-21 21:00] VITALS: BP 120/90; PULSE 86; O2SAT 96; BMI 21.2
[2024-11-21 21:21] LABS: MANUAL DIFF FLAG NO
[2024-11-21 21:22] LABS: Hematocrit 41.3 % (42.0-52.0); Hemoglobin 14.3 g/dl (14.0-18.0); Imm Gran Abs Auto 0.02 X10*3/uL (0.00-0.03); Imm Gran Pct Auto 0.3 % (0.0-0.4); Lymphocytes Absolute Auto 2.2 X10*3/uL (1.2-4.9); Mean Corpuscular HGB Conc 34.6 g/dl (31.0-36.0); Mean Corpuscular Hemoglobin 32.9 pg (27.0-33.0); Mean Corpuscular Volume 95.2 fL (80.0-98.0); NRBC Abs Auto 0.000 X10*3/uL (0.0-0.012); NRBC Pct Auto 0.0 /100WBC (0.0-0.2); Platelet Count 235 X10*3/uL (160-400); Red Blood Count 4.34 X10*6/uL (4.60-5.80); White Blood Count 5.8 X10*3/uL (4.8-10.8)
[2024-11-21 21:34] LABS: Alanine Aminotransferase 35 U/L (0-40); Albumin Level 3.9 g/dL (3.5-5.0); Alkaline Phosphatase 130 U/L (39-117); Anion Gap 10 (12-20); Aspartate Amino Transferase 24 U/L (5-37); Blood Urea Nitrogen 8 mg/dL (9-16); Calcium 8.5 mg/dL (8.4-10.2); Carbon Dioxide 28 mmol/L (22-29); Chloride 108 mmol/L (96-108); Creatinine Clr Calc Pharmacy 104.8; Estimated Glomerular Filt Rate > 60; Potassium 4.1 mmol/L (3.3-5.1); Sodium 142 mmol/L (135-145); Total Protein 6.9 g/dL (6.5-8.0)
[2024-11-21 21:42] LABS: Troponin-I High Sensitivity 86.1 ng/L (<3.5-35.0)
--- NOTE | 2024-11-21 22:26 | ED_ITS ---
HPI - Chest Pain General Chief Complaint: Chest Pain Stated Complaint: Concern he might be having heart attack Time Seen by Provider: 11/21/24 22:09 Source: EMS Mode of arrival: EMS Limitations: other History of Present Illness ED Provider: Dr. Teresa Lazaro HPI narrative: Patient comes to the emergency room via ambulance from [facility] according to the staff, the patient is nonverbal at baseline, they sent him to the emergency room because he was not acting as himself. They were unable to describe what was wrong with him, however, they said that something is different. According to the staff, the last time that he was acting this way, which is unclear what they really meant, patient had an NSTEMI. Patient has an intellectual disability and is unable to provide any history at all. Patient is nonverbal at baseline. Related Data Home Medications ?Medication ?Instructions ?Recorded ?Confirmed clonazepam 0.5 mg disintegrating 0.5 mg PO BID PRN sei zure disorder 01/25/23 09/10/24 tablet divalproex 125 mg capsule,delayed 250 mg PO DAILY 11/0909/10/24 release sprinkle finasteride 5 mg tablet 5 mg PO DAILY 01/25/2309/10 lacosamide 200 mg tablet 200 mg PO BID 01/25/2309/10 lacosamide 50 mg tablet 50 mg PO BID 01/25/23 lorazepam 0.5 mg tablet 0.5 mg PO BID Anxiety 09/10/24 metoprolol succinate 25 mg 12.5 mg PO DAILY 01/25/23 0 09/10/24 tablet,extended release 24 hr phenobarbital 60 mg tablet 60 mg PO BID 01/25/2309/10 tamsulosin 0.4 mg capsule 0.8 mg PO BEDTIME 01/25/23 0 09/10/24 acetaminophen 325 mg tablet 650 mg PO Q6H PRN Pain 06/1109/10/24 (Tylenol) aspirin 81 mg tablet,delayed 81 mg PO DAILY 07/20/24 0 09/10/24 release bacitracin 500 unit/gram topical 1 appl topical TID MO N minor cuts, 07/20/24 09/10/24 ointment scrapes, abrasions divalproex 125 mg capsule,delayed 500 mg PO BEDTIME 09/10/24 release sprinkle docusate sodium 100 mg capsule 100 mg PO DAILY 5 09/10/24 multivitamin 1 tab PO DAILY 07/20/2408/19 Previous Rx's ?Medication ?Instructions ?Recorded atorvastatin 40 mg tablet 40 mg PO BEDTIME #90 tabs ampicillin-sulbactam 3 gram 3 g IV Q6H #10 ea 09/10/24 solution for injection enoxaparin 80 mg/0.8 mL 70 mg (0.7 mL) subcut Q12H # 8 mL 09/10/24 subcutaneous syringe pantoprazole 40 mg intravenous 40 mg IVPUSH BID@0630,1 630 #1 ea 09/10/24 solution (Protonix) Allergies Allergy/AdvReac Type Severity Reaction Status Date / Time No Known Allergies (No Known Allergy Verified 11/21/24 21:03 Allergies*) Review of Systems 2 Review of Systems: Yes Other (At baseline patient is nonverbal) [facility] Past Medical History Medical History Aortic aneurysm Rosacea Vitamin D deficiency Dysphagia Mitral regurgitation Seizure disorder Intellectual disability Anxiety Social History Social History 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 Does not seem to be in acute distress Eyes: Pupils equal, round and reactive to light. ENT: Pharynx normal. Neck: Normal inspection. Neck supple. No lymph nodes noted. No crepitus CVS: Normal heart rate and rhythm. Pulses normal. Normal S1 and S2, loud systolic murmur left sternal border. Respiratory: No respiratory distress. Breath sounds normal. No Wheezing. No rales Abdomen: Soft and nontender. No rigidity. No distention. Skin: Skin warm and dry. Normal skin color. Normal skin turgor. An erythematous nonpustular rash in the middle of the chest, looks like dermatitis Extremities: No lower extremity edema. No Lacerations. Dermatitis like rash in the middle of the chest Neuro: Patient unable to participating cranial nerve assessment Psych: calm, Vital Signs: Vital Signs: Last Vital Signs Temp 99.1 F 11/21/24 22:34 Pulse 70 11/21/24 22:34 Resp 16 11/21/24 22:34 BP 134/84 11/21/24 22:34 Pulse Ox 95 11/21/24 22:34 O2 Del Method Room Air 11/21/24 22:34 BMI result Body Mass Index 21.2 Course Course Course Narrative: Patient is unable to give any significant history. According to the staff at his residence, patient is not acting as himself. All of patient's labs and imaging pending. Medical Decision Making Medical Decision Making [facility] Narrative: My interpretation of EKG: Normal sinus rhythm, 1st degree AV block, left bundle branch block, no ST segment depressions or elevations that would indicate a STEMI or NSTEMI, QTC 432. When compared to previous EKGs, these are old findings. , at least since 2019. My interpretation of labs, no significant abnormality in patient's hematology or chemistry, troponin is chronically elevated, today it is 6.1, at baseline. We will repeat a troponin 2 hours from the original. Also, we will obtain a urinalysis, pain patient's records, patient has history of recurrent UTI Troponin x2 86.1, troponin x2 a bit lower 80.3. No acute changes. Urinalysis is negative for UTI Serology is negative for COVID and influenza. Patient has a bit of dermatitis in his chest. Overall, patient is very stable, no acute findings. Patient seems comfortable. Patient will be returning to his residence Differential Diagnosis Differential Diagnoses: The differential diagnosis associated with the presentation includes (UTI, viral syndrome, ACS) Admission/Observation Consideration of admission/observation: Escalation of care including admission/observation considered (Given patient's past medical history and presentation, observation was considered) Lab Data [facility] Lab Attestation statement: I reviewed the patient's lab results. 11/21/24 21:14 11/21/24 21:14 Labs: Lab Results 11/21/24 11/21/24 11/21/24 Range/Units 21:14 23:33 23:39 WBC 5.8 (4.8-10.8) X10*3/uL RBC 4.34 L (4.60-5.80) X10*6/uL Hgb 14.3 (14.0-18.0) g/dl Hct 41.3 L (42.0-52.0) % MCV 95.2 (80.0-98.0) fL MCH 32.9 (27.0-33.0) pg MCHC 34.6 (31.0-36.0) g/dl RDW 13.5 (11.0-16.0) % Plt Count 235 (160-400) X10*3/uL MPV 8.7 L (9.4-12.4) fL Immature Gran % (Auto) 0.3 (0.0-0.4) % Neut % (Auto) 50.1 (45-73) % Lymph % (Auto) 37.4 (20-40) % Mitchell % (Auto) 7.9 (2-11) % Eos % (Auto) 3.3 (0-4) % Baso % (Auto) 1.0 (0-2) % Lymph # (Auto) 2.2 (1.2-4.9) X10*3/uL Mitchell # (Auto) 0.5 (0.1-1.2) X10*3/uL Eos # (Auto) 0.2 (0.0-0.4) X10*3/uL Baso # (Auto) 0.1 (0.0-0.2) X10*3/uL Abs Immat Gran (auto) 0.02 (0.00-0.03) X10*3/uL Absolute Neuts (auto) 2.9 (2.0-8.3) x10*3/uL Absolute Nucleated RBC 0.000 (0.0-0.012) X10*3/uL Nucleated RBC % (auto) 0.0 (0.0-0.2) /100WBC Sodium 142 (135-145) mmol/L Potassium 4.1 (3.3-5.1) mmol/L Chloride 108 (96-108) mmol/L Carbon Dioxide 28 (22-29) mmol/L Anion Gap 10 L (12-20) BUN 8 L (9-16) mg/dL Creatinine 0.64 (0.5-1.4) mg/dL Estim Creat Clear Calc 104.8 Estimated GFR > 60 Random Glucose 121 H (60-115) mg/dL Calcium 8.5 (8.4-10.2) mg/dL Total Bilirubin 0.2 (0.0-1.0) mg/dL AST 24 (5-37) U/L ALT 35 (0-40) U/L Alkaline Phosphatase 130 H (39-117) U/L Troponin I High Sens 86.1 H 80.3 H (<3.5-35.0) ng/L Total Protein 6.9 (6.5-8.0) g/dL Albumin 3.9 (3.5-5.0) g/dL Urine Color Yellow Urine Appearance Clear Urine pH 6.0 (5.0-9.0) Ur Specific [facility] 1.015 (1.005-1.025) Urine Protein Negative (Neg-Trace) mg/dL Urine Glucose (UA) Negative (Negative) mg/dL Urine Ketones Negative (Negative) mg/dL Urine Blood Negative (Negative) Urine Nitrite Negative (Negative) Ur Leukocyte Esterase Negative (Negative) COVID-19 (DESTINY) Negative (Negative) COVID-19 Clin Com See Note Influenza Type A (CARL) Negative (Negative) Influenza Type B (CARL) Negative (Negative) Influenza A & B Note See Note External Record Review External record reviewed: Inpatient record A proximally 2 months ago, patient had an NSTEMI, patient's troponin were more elevated than 2 days troponin. Critical Care Time Critical Care Time Critical Care Time: Yes Total Critical Care Time: 40 Attestation: I have personally provided critical care time. Time includes review of lab data, radiology results, discussion with consultants, and monitoring for potential decompensation. Intervention performed as documented. Discharge Plan Discharge Clinical Impression: Agitation Patient Disposition: Home, Self-Care Additional Instructions: Patient's labs are at baseline. Patient tested negative for influenza and COVID, urine analysis negative for UTI Prescriptions: No Action multivitamin Tablet 1 tab PO DAILY acetaminophen [Tylenol] 325 mg Tablet 650 mg PO Q6H PRN (Reason: Pain) bacitracin 500 unit/gram Ointment 1 appl TOPICAL TID PRN (Reason: minor cuts, scrapes, abrasions) aspirin 81 mg Tablet,Delayed Release (Dr/Ec) 81 mg PO DAILY docusate sodium 100 mg Capsule 100 mg PO DAILY divalproex 125 mg capsule, delayed rel sprinkle 500 mg PO BEDTIME atorvastatin 40 mg tablet 40 mg PO BEDTIME Qty: 90 0RF pantoprazole [Protonix] 40 mg Recon Soln 40 mg IVPUSH BID@0630,1630 Qty: 1 0RF ampicillin-sulbactam 3 gram Recon Soln 3 g IV Q6H Qty: 10 0RF enoxaparin 80 mg/0.8 mL Syringe 70 mg subcut Q12H Qty: 8 0RF tamsulosin 0.4 mg capsule 0.8 mg PO BEDTIME finasteride 5 mg tablet 5 mg PO DAILY divalproex 125 mg capsule, delayed rel sprinkle 250 mg PO DAILY phenobarbital 60 mg tablet 60 mg PO BID metoprolol succinate 25 mg tablet extended release 24 hr 12.5 mg PO DAILY lacosamide 200 mg tablet 200 mg PO BID Rx Instructions: w/ 50 BID lacosamide 50 mg tablet 50 mg PO BID Rx Instructions: w/ 200 BID lorazepam 0.5 mg tablet 0.5 mg PO BID clonazepam 0.5 mg tablet,disintegrating 0.5 mg PO BID PRN (Reason: seizure disorder) Print Language: Persian
[2024-11-21 22:34] VITALS: BP 134/84; PULSE 70; RESP 16; TEMP 37.3; O2SAT 95
[2024-11-21 23:43] LABS: Appearance Urine Clear; Glucose Urine UA Negative (Negative); PH 6.0 (5.0-9.0); Specific Gravity - Urine 1.015 (1.005-1.025)
[2024-11-22 00:21] LABS: Troponin-I High Sensitivity 80.3 ng/L (<3.5-35.0)
[2024-11-22 00:28] LABS: COVID-19 Test Negative (Negative); IDNOW Serial# 152EDE1D; IDNOW Serial# 16C4AD1C
[2024-11-22 00:29] LABS: Influenza B2 Negative (Negative)
[2024-11-22 02:35] VITALS: BP 132/84; PULSE 72; RESP 16; TEMP 36.3; O2SAT 97
== END 2024-11-22 02:42 | disposition home or self-care (01) ==
PROVIDERS: Emergency Provider Emergency Medicine
DX: R07.89 Other chest pain (principal); R45.1 Restlessness and agitation; Z79.899 Other long term (current) drug therapy; Z11.52 Encounter for screening for COVID-19; Z03.818 Encounter for observation for suspected exposure to other biological agents ruled out
CPT/HCPCS: 36415; 80053; 81003; 84484; 85025; 87502; 87635; 93005; 99283; 99284

== ENCOUNTER → 2024-11-21 21:05 | Outpatient (BNV) | payer MEDICARE, MEDICAID, SELFPAY | PROVIDERS: Emergency Provider Emergency Medicine; Visit Provider Internal Medicine Cardiovascular Disease | DX: I44.0 Atrioventricular block, first degree (principal); I44.7 Left bundle-branch block, unspecified | CPT/HCPCS: 93010 ==